=== PATIENT | female | born 1955 | race Caucasian/White ===

== ENCOUNTER 2017-05-09 11:33 | Inpatient (IN) | payer BC, OTHER ==
[~2017-05-09] VITALS: Ht 172.7 cm; Wt 105.8 kg
[~2017-05-09 11:33] MED LIST: ASPI-516 CHEW; BONI150T PO; CALC1TAB12 PO; CELE200C PO; CO Q100C9 PO; COZA100T PO; LEVO88TA2 PO; LIPI40TA PO; MONT10TA2 PO; PRED1 PO; PRED2.5T PO; PRED5TAB PO; TRAM50 PO; VITA400C2 PO; ZANA4CAP PO
[2017-05-09] MEDS ORDERED: IOHEXOL 350 MG/ML 10 ML VIAL (for RAD DIAG) IVCONTRAST ONE (11:34)
[2017-05-09 11:35] VITALS: BP 139/90; PULSE 69; RESP 16; TEMP 98.3; O2SAT 97; O2SAT 99
[2017-05-09] MEDS ORDERED: SODIUM CHLOR 0.9% 1000 ML INJ 1,000 ML IV ONE (11:40)
--- NOTE | 2017-05-09 11:46 | PD ---
HPI Chief Complaint: Stroke Alert Time Seen by Provider: 11:32 Travel History International Travel<30 days: No Contact w/Intl Traveler<30days: No Traveled to known affect area: No History of Present Illness HPI PATIENT ABOUT 1HR [employer]AMENT [employer]ER APPARENTLY DEVELOPED WEAKNESS TO RUE/ DIFFICULTY SPEAKING WHILE AT PCP DR PLUMMER'S OFFICE. ALL:DENIES PMHX: DM, HTN, HYPERCHOL, NEUROPATHY, HYPOTHYROID PFSH Past Medical History Hx Anticoagulant Therapy: Yes Cardiovascular Problems: Yes Cerebrovascular Accident: Yes Hypertension: Yes Neurologic: Yes Past Surgical History Appendectomy: Yes Neurologic Surgery: Yes Social History Alcohol Use: Yes Tobacco Use: No Substance Use: No Allergies-Medications (Allergen,Severity, Reaction): Coded Allergies: No Known Allergies (Unverified Adverse Reaction, Unknown, 05/09/17) Reported Meds & Prescriptions Reported Meds & Active Scripts Active Boniva (Ibandronate Sodium) 150 Mg Tab 150 Mg PO Q28D 90 Days Prednisone 2.5 Mg Tab 2.5 Mg PO BID Prednisone 5 Mg Tab 12 Mg PO DAILY as directed-- or 2 p.o. bid with 1 mg tabs. Prednisone 1 Mg Tab 1 Mg PO BID Lipitor (Atorvastatin Calcium) 40 Mg Tab 40 Mg PO HS Cozaar (Losartan Potassium) 100 Mg Tab 100 Mg PO DAILY Celebrex (Celecoxib) 200 Mg Cap 200 Mg PO BID Levothyroxine (Levothyroxine Sodium) 88 Mcg Tab 88 Mcg PO DAILY Reported Aspirin 81 Mg Chew 81 Mg CHEW DAILY Zanaflex (Tizanidine HCl) 4 Mg Cap 4 Mg PO BID Vitamin E 400 Unit Cap 400 Units PO DAILY Ultram (Tramadol HCl) 50 Mg Tab 50 Mg PO QID PRN Co Q 10 (Coenzyme Q10 (Ubidecarenone)) 100 Mg Cap 200 Mg PO HS Calcium 500 +D (Calcium Carbonate-Cholecalciferol) 500-400 Mg-Unit Tab 1 Tab PO BID Review of Systems General / Constitutional: No: Fever Eyes: No: Visual changes HENT: No: Headaches Cardiovascular: No: Chest Pain or Discomfort Respiratory: No: Shortness of Breath Gastrointestinal: No: Abdominal Pain Genitourinary: No: Dysuria Musculoskeletal: No: Pain Skin: No Rash Neurologic: Positive: Weakness Psychiatric: No: Depression Endocrine: No: Polydipsia Hematologic/Lymphatic: No: Easy Bruising Physical Exam Narrative GENERAL: SKIN: Warm and dry. HEAD: Atraumatic. Normocephalic. EYES: Pupils equal and round. No scleral icterus. No injection or drainage. ENT: No nasal bleeding or discharge. Mucous membranes pink and moist. NECK: Trachea midline. No JVD. CARDIOVASCULAR: Regular rate and rhythm. RESPIRATORY: No accessory muscle use. Clear to auscultation. Breath sounds equal bilaterally. GASTROINTESTINAL: Abdomen soft, non-tender, nondistended. Hepatic and splenic margins not palpable. MUSCULOSKELETAL: Extremities without clubbing, cyanosis, or edema. No obvious deformities. NEUROLOGICAL: Awake and alert. No obvious cranial nerve deficits. Motor grossly within normal limits. Five out of 5 muscle strength in the arms and legs. Normal speech. PSYCHIATRIC: Appropriate mood and affect; insight and judgment normal. Data Data Last Documented VS Vital Signs Date Time Temp Pulse Resp B/P (MAP) Pulse Ox O2 Delivery O2 Flow Rate FiO2 05/09/17 11:35 98.3 69 16 139/90 (106) 97 Orders Orders Diet Npo (05/09/17 Lunch) Activity Bed Rest (05/09/17 ) Electrocardiogram (05/09/17 ) I-Stat Creatinine (05/09/17 11:40) I-Stat Profile (05/09/17 11:40) Prothrombin Time / Inr (Pt) (05/09/17 11:40) Act Partial Throm Time (Ptt) (05/09/17 11:40) Complete Blood Count With Diff (05/09/17 11:40) Fibrinogen (05/09/17 11:40) Creatine Kinase (Cpk) (05/09/17 11:40) Troponin I (05/09/17 11:40) Ua Includes Microscopic (05/09/17 11:40) Drug Screen, Random Urine (05/09/17 11:40) Type And Screen (05/09/17 11:40) Ct Brain W/O Iv Contrast(Rout) (05/09/17 ) Cta Brain W Iv Contrast W 3d (05/09/17 11:40) Cta Neck W Iv Contrast W 3d (05/09/17 11:40) Beta Hcg (Quant/Titer) (05/09/17 11:40) Consult Neurology (05/09/17 ) Blood Glucose (05/09/17 11:40) Ecg Monitoring (05/09/17 11:40) Neuro Checks Q2HX12,Q4H (05/09/17 11:40) Nursing Bedside Swallow Assess .ONCE (05/09/17 11:40) Iv Access Insert/Monitor (05/09/17 11:40) NPO (05/09/17 11:40) Oximetry (05/09/17 11:40) Oxygen Administration (05/09/17 11:40) Sodium Chlor 0.9% 1000 Ml Inj (Ns 1000 M (05/09/17 11:40) Resp Oxygen Husam C Titrat 1-4 L (05/09/17 11:40) Cath For Specimen (05/09/17 11:40) MDM Medical Decision Making Medical Screen Exam Complete: Yes Emergency Medical Condition: Yes Medical Record Reviewed: Yes Differential Diagnosis TIA V CVA V ELECTROLYTE ABNL V THYROID D/O Physician Communication Physician Communication D/W DR ORTIZ WHO AGREES PATIENT IS NOT A LYTIC/TPA CANDIDATE AT THIS TIME DUE TO SIGNIFICANT RESOLUTION OF SYMPTOMS WITHIN HOUR, AND LOW NEUROLOGICAL DEFICITS NOTED Diagnosis Primary Impression: TIA Admitting Information Admitting Physician Requests: Observation Harley Dudley MD May 09, 2017 11:46
[2017-05-09 11:56] LABS: AUTOMATED NEUTROPHIL # 4.6 TH/MM3 (1.8-7.7); BASOPHIL % 0.5 % (0.0-2.0); EOSINOPHIL # 0.1 TH/MM3 (0-0.4); HEMATOCRIT 44.1 % (35.0-46.0); HEMOGLOBIN 14.9 GM/DL (11.6-15.3); LYMPH % 22.3 % (9.0-44.0); LYMPHOCYTE # 1.5 TH/MM3 (1.0-4.8); MEAN CELL VOLUME 95.7 FL (80.0-100.0); MEAN CORPUSCULAR HEMOGLOBIN 32.4 PG (27.0-34.0); MEAN CORPUSCULAR HGB CONC 33.9 % (32.0-36.0); MEAN PLATELET VOLUME 7.3 FL (7.0-11.0); MONO % 6.7 % (0.0-8.0); MONOCYTE # 0.5 TH/MM3 (0-0.9); NEUT % 68.5 % (16.0-70.0); PLATELET COUNT 197 TH/MM3 (150-450); RED BLOOD COUNT 4.61 MIL/MM3 (4.00-5.30); RED CELL DISTRIBUTION WIDTH 12.7 % (11.6-17.2); WHITE BLOOD COUNT 6.7 TH/MM3 (4.0-11.0)
--- NOTE | 2017-05-09 12:10 | RADRPT ---
EXAM DATE/TIME: 05/09/2017 11:33 [facility] COMPARISON: CT BRAIN W/O CONTRAST, April 17, 2015, 15:00. INDICATIONS : Dizziness,right side weakness RADIATION DOSE: 56.35 CTDIvol (mGy) This report was to Dr. Arredondo at 1203. MEDICAL HISTORY : None SURGICAL HISTORY : None. ENCOUNTER: Initial ACUITY: 1 day PAIN SCALE: 0/10 LOCATION: cranial TECHNIQUE: Multiple contiguous axial images were obtained of the head. Using automated exposure control and adj ustment of the mA and/or kV according to patient size, radiation dose was kept as low as reasonably a chievable to obtain optimal diagnostic quality images. DICOM format image data is available electro nically for review and comparison. FINDINGS: There is no parenchymal hemorrhage, mass effect or evidence for acute infarction as yet. Left MCA is mildly hyperdense. CT angiogram is pending. Ventricular size appropriate. There no extra-axial fl uid collections appreciated. Posterior fossa normal. CONCLUSION: Negative for acute process. CT angiogram pending to evaluate left MCA.. Rufino Stapleton MD FACR on May 09, 2017 at 12:04 Board Certified Radiologist. This report was verified electronically.
[2017-05-09 12:11] LABS: INTERNATIONAL NORMALIZED RATIO 1.1 RATIO; PROTHROMBIN TIME - PATIENT 10.7 SEC (9.8-11.6)
[2017-05-09 12:19] LABS: TROPONIN I LESS THAN 0.02 NG/ML (0.02-0.05)
[2017-05-09 12:35] VITALS: BP 145/69; PULSE 75; RESP 20; O2SAT 98
--- NOTE | 2017-05-09 12:42 | RADRPT ---
EXAM DATE/TIME: 05/09/2017 12:08 [facility] COMPARISON: CT BRAIN W/O CONTRAST, May 09, 2017, 11:33. INDICATIONS : Dizziness,Right side weakness IV CONTRAST: 76 cc Omnipaque 350 (iohexol) IV ; Cumulative dose for multiple exams. RADIATION DOSE: 9.61 CTDIvol (mGy) ; Combined studies MEDICAL HISTORY : None SURGICAL HISTORY : None. ENCOUNTER: Initial ACUITY: 1 day PAIN SCALE: 0/10 LOCATION: CTA Head TECHNIQUE: Volumetric scanning was performed using a multi-row detector CT scanner. The data was post processed with a variety of visualization algorithms including full volume maximum intensity projection, multi -planar sliding thin slab reformation, curved planar reformation, and surface rendering techniques. Using automated exposure control and adjustment of the mA and/or kV according to patient size, radiat ion dose was kept as low as reasonably achievable to obtain optimal diagnostic quality images. DICO M format image data is available electronically for review and comparison. FINDINGS: There is excellent visualization of the major intracranial arteries out to the second-order branch ve ssels. There is no evidence for aneurysm, vessel truncation or stenosis, and no evidence for vascula r malformation. Incidental note is made of a sub-occipital craniectomy. CONCLUSION: Intracranial vessels are all patent without embolic disease to explain current clinical symptoms . Akin Pang MD on May 09, 2017 at 12:36 Board Certified Radiologist. This report was verified electronically.
[2017-05-09 13:24] VITALS: BP 175/75; PULSE 73; RESP 20; O2SAT 98
--- NOTE | 2017-05-09 13:28 | RADRPT ---
EXAM DATE/TIME: 05/09/2017 12:08 [facility] COMPARISON: No previous studies available for comparison. INDICATIONS : Dizziness, right side weakness. IV CONTRAST: 76 cc Omnipaque 350 (iohexol) IV ; Cumulative dose for multiple exams. RADIATION DOSE: 9.61 CTDIvol (mGy) ; Combined studies MEDICAL HISTORY : None SURGICAL HISTORY : None. ENCOUNTER: Initial ACUITY: 1 day PAIN SCALE: 0/10 LOCATION: neck Elevated flow velocities and ICA/CCA ratios have been found to correlate with increased degrees of vessel stenosis, calculated as percentage of diameter relative to a normal segment of distal ICA/CCA. TECHNIQUE: Volumetric scanning was performed using a multirow detector CT scanner. The data was post processed with a variety of visualization algorithms including full-volume maximum intensity projection, multip lanar sliding thin-slab reformation, curved-planar reformation, and surface-rendering techniques. Us ing automated exposure control and adjustment of the mA and/or kV according to patient size, radiatio n dose was kept as low as reasonably achievable to obtain optimal diagnostic quality images. DICOM f ormat image data is available electronically for review and comparison. FINDINGS: AORTIC ARCH: There is a three-vessel origin of the great vessels from the aorta. No evidence of ostial narrowing. RIGHT CAROTID: The common carotid artery is intact. Mild atherosclerotic changes proximally . The internal carotid a rtery lumen is smooth without stenosis. The external carotid artery is intact. LEFT CAROTID: The common carotid artery is intact. Mild atherosclerotic changes proximally. The internal carotid artery lumen is smooth without stenosis. The external carotid artery is intact. VERTEBRALS: The vertebral arteries have a symmetric diameter. No stenotic lesions are seen. CONCLUSION: Normal-appearing carotid arteries. No significant stenosis. Mike Johansen MD on May 09, 2017 at 13:25 Board Certified Radiologist. This report was verified electronically.
[2017-05-09 13:31] VITALS: BP 156/86; PULSE 78; RESP 16; O2SAT 100
[2017-05-09] MEDS ORDERED: VITA-142 PO (13:41)
--- NOTE | 2017-05-09 13:48 | HHI.HP ---
[facility] Service Family Medicine Primary Care Physician Jasmin Leiva MD Admission Diagnosis TIA Diagnoses: International Travel<30 Days: No Contact w/Intl Traveler<30days: No Known Affected Area: No History of Present Illness 61 y/o F, past medical history of syringomyelia with multiple surgeries, diabetes, hypertension, and hyperlipidemia presents as a stroke alert with mostly resolved symptoms. She was on a diet over the holidays and lost 13 lbs and she believes this has caused her blood pressure to decrease. She had a couple episodes of dizziness Sunday/Sunday of last week and checked her blood pressure and it was 89/69, and her normal is 130/90. Last week she felt the dizziness in the morning while she was getting dressed. She layed down for 30 minutes and felt fine after. After this happened she noticed that if she does a lot of activity she will start to get dizzy. She cut her BP medication down in half last Sunday (per request of via phone). After her doctor's appointment today she went to the post-office and felt dizzy; she felt the room was spinning, heavy legs, pre-syncopal.. Denies any N/V. At 10:45AM she had gotten to her office and was having some trouble getting words out. She was sick with a URI during the holidays from 04/24-04/29 but otherwise negative ROS. (Vivienne Harris MD R2) Review of Systems Endocrine: DENIES: Polyuria Eyes: DENIES: Blurred vision, Diplopia Ears, nose, mouth, throat: DENIES: Throat pain, Hoarseness Respiratory: DENIES: Wheezing, Hemoptysis Cardiovascular: DENIES: Chest pain, Palpitations Gastrointestinal: DENIES: Bloody stools, Diarrhea Genitourinary: DENIES: Urinary frequency, Urinary incontinence Musculoskeletal: DENIES: Muscle aches, Stiffness Integumentary: DENIES: Rash, Nail changes Hematologic/lymphatic: DENIES: Lymphadenopathy Immunologic/allergic: DENIES: Urticaria Neurologic: DENIES: Seizures, Speech Problems Psychiatric: DENIES: Depression, Hallucinations (Vivienne Harris MD R2) Past Family Social History Past Medical History PMH preDM (on steroids) 01/12 osteopenia 2013 (Pt s/p fosamax weekly estim 2003- 2008), now on bisphosphanate holiday Chronic myofascial and neuropathic pain with neuropathy Chiari malformation with hydromyelia Hyperlipidemia Hypertension Seasonal allergies menopause 2006 Hypothyroid 1989 desensitization shots 1980s INJURIES Right wrist fracture 2008 Left clavicle fracture age 4 Right leg fracture age 12 Head injury with concussion 2000 SURG Lap Appy 03/14, benign pathology Right wrist 2007 Suboccipital craniectomy, laminectomy C1-C4, myelotomy C4, with insertion of Silastic T-tube for drainage of syrinx into subarachnoid space September 1989 SH ,no natural children, spouse diagnosed with Hep B/ liver transplant has stepdaughter that she helped raise from age 9, and 2 grandchildren. 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 ALLERGIES No known drug allergies patient is allergic to Ione, dust mites, mildew. HEALTH MAINTENANCE BMD 06/08/16: progression of osteopenia in the lumbar spine from 2013, likely related to prednisone therapy.resume Bisphosphanate CPE Jan 2016 labs Jan 2016: TotC 177, H 70, TG 75, L 92. FBS 124, A1C 6.1, AST 36, Vit D 64 , FT4 1.3, (low TSH). Labs 04/18/15: Hepatitis panel and LFTs normal. CT abdomen and pelvis 02/11: c/w mild sig diverticulosis, small nonobstructing left renal calculus, small hiatal hernia labs 01/12 A1C 6.0 TotChol 151, H 59, L 77, TG 75 FBS 90, ALT 30 (sl elevated) TSH low (0.2), FT4 1.2, FT3 3.2. ok to cont current levoth dose (euthyroid clinically) colonoscopy 01/12 Bx:hemorrhagic changes at colon at appendix region, otherwise benign path and polyps. ophth 02/10 labs 01/11: A1C 5.9, TSH low but FT4 1.4, CMP wnl. labs 01/12 pending BMD 09/10:osteopenia R prox hip (-1.6), L spine (-1.2), repeat 1-2yrs (pt on prednisone) mamm 09/10, ordered, pending 01/12 pap 06/13 wnl (atrophic), neg HR HPV, repap 2019 Labs April 2013: Decreased TSH, normal T3-T4, fasting glucose 104, cholesterol 174, triglyceride 80, HDL 70, LDL 80, neg [place] and CRP, RF sl elevated at 16.4. Brain MRI 08/25/11 mamm 2011 bone density 2006 (estim) colonoscopy 2008 Immunizations hep B series 2007 hep A series 2007 flu shot q fall other providers: neuro ([facility]) [id number], GI ([facility]), ophth ( [facility] Jan 2014), [facility] [place] 2015 (Vivienne Harris MD R2) Allergies: Coded Allergies: No Known Allergies (Unverified Adverse Reaction, Unknown, 05/09/17) Physical Exam Vital Signs Vital Signs Date Time Temp Pulse Resp B/P (MAP) Pulse Ox O2 Delivery O2 Flow Rate FiO2 05/09/17 13:31 78 16 156/86 (109) 100 Nasal Cannula 2.00 05/09/17 13:24 73 20 175/75 (108) 98 05/09/17 12:35 75 20 145/69 (94) 98 05/09/17 11:35 98.3 69 16 139/90 (106) 97 05/09/17 11:35 99 Nasal Cannula 2.00 05/09/17 11:35 99 Physical Exam GENERAL: This is a well-nourished, well-developed patient, in no apparent distress. SKIN: No rashes, ecchymoses or lesions. Cool and dry. HEAD: Atraumatic. Normocephalic. No temporal or scalp tenderness. EYES: Pupils equal round and reactive. Extraocular motions intact. No scleral icterus. No injection or drainage. ENT: Nose without bleeding, purulent drainage or septal hematoma. Throat without erythema, tonsillar hypertrophy or exudate. Uvula midline. Airway patent. NECK: Trachea midline. No JVD or lymphadenopathy. Supple, nontender, no meningeal signs. CARDIOVASCULAR: Regular rate and rhythm without murmurs, gallops, or rubs. RESPIRATORY: Clear to auscultation. Breath sounds equal bilaterally. No wheezes , rales, or rhonchi. GASTROINTESTINAL: Abdomen soft, non-tender, nondistended. No hepato-splenomegaly , or palpable masses. No guarding. MUSCULOSKELETAL: Extremities without clubbing, cyanosis, or edema. No joint tenderness, effusion, or edema noted. No calf tenderness. Negative Homans sign bilaterally. NEUROLOGICAL: Awake and alert. Cranial nerves II through XII intact. Motor and sensory grossly within normal limits. Slightly weaker in her right upper extremity compared to her baseline considering her condition. Good resistance with dorsiflexion. Symmetrical resistance with lower extremities. Positive Babinski. No sensory loss noted. Normal speech. Pupils equal and reactive. Laboratory Laboratory Tests Test 05/09/17 11:40 White Blood Count 6.7 Red Blood Count 4.61 Hemoglobin 14.9 Bedside Hemoglobin 14.6 Hematocrit 44.1 Bedside Hematocrit 43.0 Mean Corpuscular Volume 95.7 Mean Corpuscular Hemoglobin 32.4 Mean Corpuscular Hemoglobin Concent 33.9 Red Cell Distribution Width 12.7 Platelet Count 197 Mean Platelet Volume 7.3 Neutrophils (%) (Auto) 68.5 Lymphocytes (%) (Auto) 22.3 Monocytes (%) (Auto) 6.7 Eosinophils (%) (Auto) 2.0 Basophils (%) (Auto) 0.5 Neutrophils # (Auto) 4.6 Lymphocytes # (Auto) 1.5 Monocytes # (Auto) 0.5 Eosinophils # (Auto) 0.1 Basophils # (Auto) 0.0 CBC Comment DIFF FINAL Differential Comment Prothrombin Time 10.7 Prothromb Time International Ratio 1.1 Activated Partial Thromboplast Time 21.2 Fibrinogen 273 Bedside Sodium 140 Bedside Potassium 3.8 Bedside Chloride 108 Bedside Blood Urea Nitrogen 25 Bedside Creatinine 0.7 Bedside Glucose 96 Total Creatine Kinase 147 Troponin I LESS THAN 0.02 Human Chorionic Gonadotropin, Quant 1 (Vivienne Harris MD R2) Result Diagram: 05/09/17 1140 Septic Shock Reassessment Septic shock perfusion: reassessment completed (Vivienne Harris MD R2) Caprini VTE Risk Assessment Caprini VTE Risk Assessment: No/Low Risk (score <= 1) Caprini Risk Assessment Model Point Value = 1 Point Value = 2 Point Value = 3 Point Value = 5 Age 41-60 Minor surgery BMI > 25 kg/m2 Swollen legs Varicose veins or History of unexplained or recurrent spontaneous Oral contraceptives or hormone replacement Sepsis (< 1 month) Serious lung disease, including pneumonia (< 1 month) Abnormal pulmonary function Acute myocardial infarction Congestive heart failure (< 1 month) History of inflammatory bowel disease Medical patient at bed rest Age 61-74 Arthroscopic surgery Major open surgery (> 45 min) Laparoscopic surgery (> 45 min) Malignancy Confined to bed (> 72 hours) Immobilizing plaster cast Central venous access Age >= 75 History of VTE Family history of VTE Factor V Leiden Prothrombin [id number] Lupus anticoagulant Anticardiolipin antibodies Elevated serum homocysteine Heparin-induced thrombocytopenia Other congenital or acquired thrombophilia Stroke (< 1 month) Elective arthroplasty Hip, pelvis, or leg fracture Acute spinal cord injury (< 1 month) Prophylaxis Regimen Total Risk Factor Score Risk Level Prophylaxis Regimen 0-1 Low Early ambulation 2 Moderate Order ONE of the following: *Sequential Compression Device (SCD) *Heparin 5000 units SQ BID 3-4 Higher Order ONE of the following medications: *Heparin 5000 units SQ TID *Enoxaparin/Lovenox 40 mg SQ daily (WT < 150 kg, CrCl > 30 mL/min) *Enoxaparin/Lovenox 30 mg SQ daily (WT < 150 kg, CrCl > 10-29 mL/min) *Enoxaparin/Lovenox 30 mg SQ BID (WT < 150 kg, CrCl > 30 mL/min) AND/OR *Sequential Compression Device (SCD) 5 or more Highest Order ONE of the following medications: *Heparin 5000 units SQ TID (Preferred with Epidurals) *Enoxaparin/Lovenox 40 mg SQ daily (WT < 150 kg, CrCl > 30 mL/min) *Enoxaparin/Lovenox 30 mg SQ daily (WT < 150 kg, CrCl > 10-29 mL/min) *Enoxaparin/Lovenox 30 mg SQ BID (WT < 150 kg, CrCl > 30 mL/min) AND *Sequential Compression Device (SCD) (Vivienne Harris MD R2) Assessment and Plan Assessment and Plan 61 y/o F, past medical history of syringomyelia with multiple surgeries, diabetes, hypertension, and hyperlipidemia presents as a stroke alert with mostly resolved symptoms. Discussed Condition With Dr. Dodd (Vivienne Harris MD R2) Attending Attestation THIS CASE WAS DISCUSSED WITH THE RESIDENT PHYSICIANS. I HAVE REVIEWED THE RECORD AND AGREE WITH THE ABOVE NOTE AND PLAN OF CARE WAS DISCUSSED. I HAVE AUTHORIZED THE ORDER FOR ADMISSION TO AN IN-PATIENT STATUS. (Jasmin Leiva MD) Problem List: (1) Episode of dizziness ICD Codes: R42 - Dizziness and giddiness Status: Acute Plan: Episode of dizziness, presyncopal symptoms, speech difficulties, and some residual right hemiparesis Risk factors: HTN, DM Lay flat [address] brain and CTA unremarkable, CT negative for bleeding Follow-up neurology consult recommendations - Continue aspirin - Add Plavix - Follow up MRI of brain without contrast - Follow up lipids, A1C, LFTs - Follow up echo Bedrest Fall precautions NIH stroke scale Neuro checks every 4 Bedside swallow study then full diet Stroke education Normal saline at 70 ml/hr Initial troponin negative, follow-up troponin trend EKG: WNL f/u with PT, OT, speech, CM (2) Chronic myofascial pain ICD Codes: M79.1 - Myalgia; G89.29 - Other chronic pain Status: Chronic Plan: Hold antispasmodics Hold Celebrex Continue tramadol Continue home prednisone (3) Hypertension ICD Codes: I10 - Hypertension Status: Acute Plan: Slightly hypertensive on admission Continue losartan 50 mg daily (4) Hypothyroid ICD Codes: E03.9 - Hypothyroidism, unspecified Status: Acute Plan: Per chart review TSH was low last year and medication had to be titrated Continue home dose of levothyroxine 88 g Follow up TSH (5) Diabetes ICD Codes: E11.9 - Type 2 diabetes mellitus without complications Status: Chronic Plan: Prediabetes, also on chronic steroids Bedside glucose on admission 94 Follow up hemoglobin A1c Follow-up BS Insulin sliding scale (6) fen/ppx Status: Chronic Plan: Fluids: Normal saline as mentioned above, full diet after swallow study Electrolytes: Initial BMP normal, follow-up BMP tomorrow Nutrition: Regular diet after swallow study (Vivienne Harris MD R2) Physician Certification 2 Midnight Certification Type: Admission for Inpatient Services Order for Inpatient Services The services are ordered in accordance with Medicare regulations or non- Medicare payer requirements, as applicable. In the case of services not specified as inpatient-only, they are appropriately provided as inpatient services in accordance with the 2-midnight benchmark. Estimated LOS (days): 2 days is the estimated time the patient will need to remain in the hospital, assuming treatment plan goals are met and no additional complications. Post-Hospital Plan: Home (Vivienne Hraris MD R2) 2 Midnight Certification Type: Admission for Inpatient Services Post-Hospital Plan: Home (Jasmin Leiva MD) Vivienne Harris MD R2 May 09, 2017 13:48 Jasmin Leiva MD May 10, 2017 08:52
[2017-05-09] MEDS ORDERED: BISACODYL 10 MG SUPP RECTAL PRN (14:00)
[2017-05-09] MEDS ORDERED: SODIUM CHLORIDE 0.9% FLUSH 10 ML FLUSH IV FLUSH PRN (14:00)
[2017-05-09] MEDS ORDERED: MAGNESIUM HYDROXIDE SUSP 30 ML CUP PO PRN (14:00)
[2017-05-09] MEDS: SODIUM CHLORIDE 0.9% FLUSH 10 ML FLUSH IV FLUSH SCH ×2 (14:00→21:00)
[2017-05-09] MEDS ORDERED: NALOXONE HCL 0.4 MG/ML AMP IV PUSH PRN ×2 (14:00→20:30)
[2017-05-09] MEDS ORDERED: LACTULOSE SYRUP 20 GM/30 ML CUP PO PRN (14:00)
[2017-05-09] MEDS ORDERED: SENNOSIDES 8.6 MG TAB PO PRN (14:00)
[2017-05-09] MEDS ORDERED: NON-FORMULARY DRUG (Calcium Carbonate-Cholecalciferol (Calcium 500 +D) 1 TAB) PO SCH (14:30)
--- NOTE | 2017-05-09 14:30 | MB ---
cc: JASMIN ORTIZ M.D. DATE OF CONSULTATION 05/09/2017 HISTORY OF PRESENT ILLNESS The patient is seen in neurological consultation. She was in the emergency room. This was a Stroke Alert. I spoke to the ED physician on a couple of occasions. The patient has a history of diabetes, hypertension, and hyperlipidemia. She takes a baby aspirin daily. She also has a history of syringomyelia and laminectomy at the high cervical levels with apparent suboccipital craniectomy as well. Today she was in a doctor's office when she was noted to have some slurring of speech and some right-sided weakness. She improved quickly and within an hour or so her symptoms were mostly resolved. She has no history of stroke, TIA, or seizures. NEUROLOGICAL EXAMINATION On exam she is alert, pleasant and oriented. Her speech is normal. No language dysfunction is noted. No facial weakness. Tongue and palate moves well. Ocular movements and visual foster full. Pupils equal and reactive. She did raise the arms and legs on the bedside exam. She has some weakness in the intrinsic hand muscles, especially the left from the syringomyelia syndrome and there is some contracture that seems to involve the fourth finger predominantly. She is possibly very mildly weak as a residual on the right distal upper extremity in comparison to the baseline. The patient herself does not seem to be quite aware of these. She resisted well with the distal lower extremities on dorsiflexion. She raised the lower extremities and opposed reasonable resistance, symmetrical. Reflexes were 2+, present at both ankles. Plantar responses were probably flexor bilaterally. Position sense preserved in the distal lower extremities. No distinct sensory loss and she is not having any sensory symptoms. ASSESSMENT 1. Stroke Alert with mostly if not completely resolved symptoms. The patient describes some dizziness, lightheadedness and felt like she was going to pass out. She appears to have had some right hemiparesis and speech difficulty. There is now questionable residual right hand weakness. 2. History of syringomyelia treated with cervical/occipital surgeries many years ago. 3. Diabetes. 4. Hypertension. 5. Hyperlipidemia. PLAN/RECOMMENDATIONS She is to continue the aspirin. We will add Plavix. Further evaluation to include MRI brain. The patient had a CT angio head that was unremarkable as well as CT brain. The CT angio neck results were pending a few minutes ago when I opened her chart. Will follow this. Will check lipids and echocardiogram. SCDs. I will follow the neurological course. Thank you for asking us to assist in her care. MD BALDEMAR Mcduffie/BT /1:52 PM /2:11 PM
[2017-05-09 14:41] LABS: CHOLESTEROL/ HDL RATIO 2.57 RATIO; HDL CHOLESTEROL 52.9 MG/DL (40.0-60.0)
[2017-05-09] MEDS ORDERED: ASPIRIN 325 MG TAB PO ONE (15:00)
[2017-05-09] MEDS ORDERED: SODIUM CHLOR 0.9% 1000 ML INJ 1,000 ML IV SCH (15:00)
[2017-05-09] MEDS ORDERED: DEXTROSE 50% IN WATER 50 ML VIAL(D50) IV PUSH PRN (15:00)
[2017-05-09] MEDS ORDERED: CLOPIDOGREL 75 MG TAB PO ONE (15:00)
[2017-05-09] MEDS: ENOXAPARIN SODIUM 40 MG/0.4 ML SYRINGE SQ SCH (15:00)
[2017-05-09] MEDS ORDERED: GLUCAGON 1 MG/ML VIAL OTHER PRN (15:00)
[2017-05-09] MEDS: ASPIRIN 325 MG TAB PO SCH (15:30)
--- NOTE | 2017-05-09 15:41 | RADRPT ---
EXAM DATE/TIME: 05/09/2017 15:28 [facility] COMPARISON: No previous studies available for comparison. INDICATIONS : Confusion. Stroke alert. MEDICAL HISTORY : Hypertension. Hypercholesterolemia. Cerebrovascular accident. SURGICAL HISTORY : Appendectomy. ENCOUNTER: Initial ACUITY: 1 day PAIN SCORE: 0/10 LOCATION: Bilateral chest FINDINGS: The lungs are clear. The heart is minimally enlarged. The pulmonary vascularity is normal. There is n o evidence for infiltrate or failure. The portion of the bony skeleton visualized is unremarkable. CONCLUSION: Compensated cardiomegaly otherwise negative Rufino Stapleton MD FACR on May 09, 2017 at 15:38 Board Certified Radiologist. This report was verified electronically.
[2017-05-09] MEDS ORDERED: predniSONE 10 MG TAB PO SCH (16:45)
[2017-05-09] MEDS: INSULIN ASPART SUPPLEMENTAL SCALE SQ SCH ×2 (17:00→20:04)
[2017-05-09] MEDS ORDERED: LOSARTAN 50 MG TAB PO SCH (17:00)
[2017-05-09] MEDS: VITAMIN E 400 UNIT CAP PO SCH (18:05)
[2017-05-09] MEDS: SODIUM CHLOR 0.9% 1000 ML INJ 1,000 ML IV SCH (18:05)
[2017-05-09] MEDS: traMADol HCL 50 MG TAB PO PRN (18:44)
[2017-05-09] MEDS ORDERED: ACETAMINOPHEN 325 MG TAB PO PRN (20:30)
[2017-05-09] MEDS ORDERED: ACETAMINOPHEN/HYDROcodone 325 MG/7.5 MG TAB PO PRN (20:30)
[2017-05-09] MEDS ORDERED: NON-FORMULARY DRUG (Coenzyme Q10 (Ubidecarenone) (Co Q 10) 200 MG) PO SCH (21:00)
--- NOTE | 2017-05-09 21:08 | RADRPT ---
EXAM DATE/TIME: 05/09/2017 20:30 [facility] COMPARISON: No previous studies available for comparison. INDICATIONS : CVA. MEDICAL HISTORY : Hypertension. Hypercholesterolemia. TIA SURGICAL HISTORY : Appendectomy. Craniotomy. Neurosurgery, Cervical sx. ENCOUNTER: Initial ACUITY: 1 day PAIN SCORE: 3/10 LOCATION: Right arm weakness. TECHNIQUE: Multiplanar, multisequence MRI of the brain was performed without contrast. FINDINGS: CEREBRUM: The ventricles are normal for age. No evidence of midline shift, or hemorrhage. No extraaxial fluid collections are seen. The pituitary gland and suprasellar cistern are normal in configuration. WHITE MATTER: No significant signal abnormalities are seen in the white matter. The cervical cord is quite narrowed in AP dimension POSTERIOR FOSSA: The cerebellum and brainstem are intact. The 4th ventricle is midline. The cerebellopontine angle is unremarkable. The cerebellar tonsils are normal in position. DIFFUSION IMAGING: There is a large abnormal area seen on the diffusion-weighted sequences of the left occipital lobe co ncerning for stroke. There is a questionable 4 mm area in the left inferior cerebellum could be an ad ditional small stroke. Small stroke in the right cerebellar vermis EXTRACRANIAL: The visualized portions of the orbits and paranasal sinuses are unremarkable. CONCLUSION: Large stroke in the left occipital lobe medially. 2 small strokes within the cerebellum, one in the s uperior right vermis. No evidence of malignancy. No mass or mass effect. Timmy Gongora MD on May 09, 2017 at 21:01 Board Certified Radiologist. This report was verified electronically.
[2017-05-09 21:38] VITALS: BP 114/57; PULSE 75; RESP 18; TEMP 98.2; O2SAT 95
[2017-05-09] MEDS: predniSONE 1 MG TAB PO SCH (21:59)
[2017-05-09] MEDS: ATORVASTATIN 40 MG TAB PO SCH (21:59)
[2017-05-09] MEDS: predniSONE 5 MG TAB PO SCH (22:00)
[2017-05-09] MEDS: ACETAMINOPHEN/HYDROcodone 325 MG/5 MG TAB PO PRN (22:01)
[2017-05-10] VITALS (7 sets, daily range): BP systolic 118–166; BP diastolic 55–97; PULSE 61–92; RESP 16–18; TEMP 98–98.4; O2SAT 94–98
[2017-05-10] MEDS: SODIUM CHLOR 0.9% 1000 ML INJ 1,000 ML IV SCH ×2 (04:45→18:16)
[2017-05-10] MEDS: traMADol HCL 50 MG TAB PO PRN ×2 (04:45→16:41)
[2017-05-10] MEDS ORDERED: LEVOTHYROXINE SODIUM 88 MCG TAB PO SCH (06:00)
[2017-05-10] MEDS ORDERED: ENALAPRILAT 1.25 MG/ML VIAL IV PUSH PRN (07:15)
[2017-05-10 07:57] LABS: AUTOMATED NEUTROPHIL # 4.6 TH/MM3 (1.8-7.7); BASOPHIL % 0.4 % (0.0-2.0); EOSINOPHIL # 0.1 TH/MM3 (0-0.4); HEMATOCRIT 43.5 % (35.0-46.0); HEMOGLOBIN 15.2 GM/DL (11.6-15.3); LYMPH % 16.6 % (9.0-44.0); MEAN CELL VOLUME 94.3 FL (80.0-100.0); MEAN CORPUSCULAR HEMOGLOBIN 32.9 PG (27.0-34.0); MEAN CORPUSCULAR HGB CONC 34.9 % (32.0-36.0); MEAN PLATELET VOLUME 7.9 FL (7.0-11.0); MONO % 6.8 % (0.0-8.0); MONOCYTE # 0.4 TH/MM3 (0-0.9); NEUT % 75.2 % (16.0-70.0); PLATELET COUNT 233 TH/MM3 (150-450); RED BLOOD COUNT 4.62 MIL/MM3 (4.00-5.30); RED CELL DISTRIBUTION WIDTH 12.6 % (11.6-17.2); WHITE BLOOD COUNT 6.1 TH/MM3 (4.0-11.0)
[2017-05-10] MEDS: INSULIN ASPART SUPPLEMENTAL SCALE SQ SCH ×4 (08:00→20:32)
[2017-05-10 08:17] LABS: ALBUMIN 3.2 GM/DL (3.4-5.0); ALT (GPT) 48 U/L (10-53); AST (GOT) 23 U/L (15-37); BICARBONATE 25.2 MEQ/L (21.0-32.0); BLOOD UREA NITROGEN 13 MG/DL (7-18); CALCIUM 8.1 MG/DL (8.5-10.1); CHLORIDE 115 MEQ/L (98-107); CHOLESTEROL 135 MG/DL (120-200); CREATININE 0.53 MG/DL (0.50-1.00); DIRECT BILIRUBIN ADULT 0.1 MG/DL (0.0-0.2); GLOMERULAR FILTRATION RATE 118 ML/MIN (>89); GLUCOSE,RANDOM 98 MG/DL (74-106); SODIUM (NA) 147 MEQ/L (136-145)
[2017-05-10 08:27] LABS: ALKALINE PHOSPHATASE 51 U/L (45-117); CHOLESTEROL/ HDL RATIO 2.76 RATIO; HDL CHOLESTEROL 48.9 MG/DL (40.0-60.0); INDIRECT BILIRUBIN 0.2 MG/DL (0.0-0.8); LDL CHOLESTEROL 76 MG/DL (0-99); TOTAL BILIRUBIN ADULT 0.3 MG/DL (0.2-1.0); TRIGLYCERIDES 51 MG/DL (42-150); TROPONIN I LESS THAN 0.02 NG/ML (0.02-0.05)
[2017-05-10] MEDS: predniSONE 1 MG TAB PO SCH ×2 (09:00→12:03)
[2017-05-10] MEDS: predniSONE 5 MG TAB PO SCH ×2 (09:00→12:03)
[2017-05-10] MEDS: ASPIRIN 325 MG TAB PO SCH (10:19)
[2017-05-10] MEDS: VITAMIN E 400 UNIT CAP PO SCH (10:19)
[2017-05-10] MEDS: SODIUM CHLORIDE 0.9% FLUSH 10 ML FLUSH IV FLUSH SCH ×2 (10:19→21:00)
--- NOTE | 2017-05-10 11:43 | HHI.FPPN ---
Subjective Remarks Patient seen and examined bedside this morning. Patient continues to complain of mild to moderate weakness of her right arm. Patient continues to endorse periods of "kaleidoscope" vision out of her right eye when she looks to the right. She experienced this a couple times overnight, and the last time was at 7 :30 AM this morning. He does not get any headaches or confusion during the times of these vision changes. Patient denies any chest pain/shortness of breath. Patient denies any progressive weakness or new symptoms. Patient denies any nausea/vomiting. (Vivienne Harris MD R2) Objective Vitals Vital Signs Date Time Temp Pulse Resp B/P (MAP) Pulse Ox O2 Delivery O2 Flow Rate FiO2 05/10/17 05:45 61 05/10/17 04:40 98.2 82 18 166/72 (103) 94 05/10/17 00:20 98.3 84 18 119/71 (87) 94 05/09/17 21:38 98.2 75 18 114/57 (76) 95 05/09/17 18:57 05/09/17 13:31 78 16 156/86 (109) 100 Nasal Cannula 2.00 05/09/17 13:24 73 20 175/75 (108) 98 05/09/17 12:35 75 20 145/69 (94) 98 05/09/17 11:35 98.3 69 16 139/90 (106) 97 05/09/17 11:35 99 Nasal Cannula 2.00 05/09/17 11:35 99 I/O 05/09/17 05/09/17 05/09/17 05/10/17 05/10/17 05/10/17 07:00 15:00 23:00 07:00 15:00 23:00 Intake Total 140 ml Output Total 600 ml 600 ml Balance -600 ml -460 ml Intake IV Total 140 ml Output Urine Total 600 ml 600 ml # Voids 1 1 6 (Vivienne Harris MD R2) Result Diagram: 05/10/17 0635 05/10/17 0635 Objective Remarks GENERAL: Awake alert and oriented 3, in no acute distress SKIN: Warm and dry. HEAD: Normocephalic. EYES: No scleral icterus. No injection or drainage. NECK: Supple, trachea midline. No JVD or lymphadenopathy. CARDIOVASCULAR: Regular rate and rhythm without murmurs, gallops, or rubs. RESPIRATORY: Breath sounds equal bilaterally. No accessory muscle use. GASTROINTESTINAL: Abdomen soft, non-tender, nondistended. MUSCULOSKELETAL: No cyanosis, or edema. BACK: Nontender without obvious deformity. No CVA tenderness. Neuro: Cranial nerves all grossly intact. Extraocular movements intact. Patient denies any sensory deficits. Right arm 4+ out of 5 strength, left arm 5 out of 5 strength, (as compared to patient's baseline, due to her condition), positive Babinski (Vivienne Harris MD R2) A/P Assessment and Plan 61 y/o F, past medical history of syringomyelia with multiple surgeries, diabetes, hypertension, and hyperlipidemia presents as a stroke alert with mostly resolved symptoms. (Vivienne Harris MD R2) Attending Attestation Patient seen and examined. Case reviewed and discussed with the resident team. Agree with plan of care as discussed with me and documented in the resident note. (Jasmin Leiva MD) Problem List: (1) Episode of dizziness ICD Codes: R42 - Dizziness and giddiness Status: Acute Plan: Episode of dizziness, presyncopal symptoms, speech difficulties, and some residual right hemiparesis Risk factors: HTN, DM Lay flat [address] brain and CTA unremarkable, CT negative for bleeding Follow-up further neurology consult recommendations - Continue aspirin - Continue Plavix - MRI of brain without contrast: Large stroke in left occipital region, small strokes and cerebellum - LDL low at 76 - f/u HbA1c - TSH low at 0.027 - Follow up echo Bedrest Fall precautions NIH stroke scale Neuro checks every 4 Bedside swallow study then full diet Stroke education Normal saline at 70 ml/hr Troponins negative x 3 EKG x 2: T-wave inversion 2 leads, non-contiguous: aVR and V1 , no ST elevations f/u with PT, OT, speech, CM (2) Chronic myofascial pain ICD Codes: M79.1 - Myalgia; G89.29 - Other chronic pain Status: Chronic Plan: Hold antispasmodics Hold Celebrex Continue tramadol Continue home prednisone (3) Hypertension ICD Codes: I10 - Hypertension Status: Acute Plan: Slightly hypertensive on admission hold home losartan 50 mg daily to allow for permissive hypertension When necessary medication on board for blood pressures 200/100 (4) Hypothyroid ICD Codes: E03.9 - Hypothyroidism, unspecified Status: Chronic Plan: Per chart review TSH was low last year and medication had to be titrated TSH today 0.027 Increase levothyroxine to 100 g f/u TSH in 3 months as outpatient (5) Diabetes ICD Codes: E11.9 - Type 2 diabetes mellitus without complications Status: Chronic Plan: Prediabetes, also on chronic steroids Bedside glucose on admission 94 Follow up hemoglobin A1c Follow-up BS Insulin sliding scale (6) fen/ppx Status: Chronic Plan: Fluids: Normal saline as mentioned above, full diet after swallow study Electrolytes: Initial BMP normal, follow-up BMP tomorrow Nutrition: Regular diet after swallow study (Vivienne Harris MD R2) Vivienne Harris MD R2 May 10, 2017 11:43 Jasmin Leiva MD May 15, 2017 11:06
[2017-05-10] MEDS ORDERED: predniSONE 5 MG TAB PO SCH (14:30)
[2017-05-10] MEDS: ENOXAPARIN SODIUM 40 MG/0.4 ML SYRINGE SQ SCH (16:37)
--- NOTE | 2017-05-10 18:10 | HHI.PR ---
Review/Management Daily Summary doing well and anxious, worried about inactivity etc probably has some right field defect to correlate with mri findings, though on confrontation field is at least partially preserved will add some xanax prn anxiety add plavix to asa, goal is ldl below 60 check echo, ekg is sinus if any evidence of cardio embolism, switch to anticoagulation mri seen discussed with family and pt brown candidate, hope so one of my partners will cover as i will be out of town Subjective Subjective Comments No acute events reported No headache Active Medications Current Medications Medications (Trade) Dose Ordered Sig/Rob Route Start Time Stop Time Status Last Admin (NS Flush) 2 ml UNSCH PRN IV FLUSH 05/09/17 14:00 (NS Flush) 2 ml BID IV FLUSH 05/09/17 14:00 05/10/17 10:19 (Narcan Inj) 0.4 mg UNSCH PRN IV PUSH 05/09/17 14:00 (Milk Of Magnesia Liq) 30 ml Q12H PRN PO 05/09/17 14:00 (Senokot) 17.2 mg Q12H PRN PO 05/09/17 14:00 (Dulcolax Supp) 10 mg DAILY PRN RECTAL 05/09/17 14:00 (Lactulose Liq) 30 ml DAILY PRN PO 05/09/17 14:00 (Lipitor) 40 mg HS PO 05/09/17 21:00 05/09/17 21:59 (Deltasone) 2 mg DAILY PO 05/09/17 14:30 05/10/17 12:03 (Ultram) 50 mg QID PRN PO 05/09/17 14:30 05/10/17 16:41 (Vitamin E) 400 units DAILY PO 05/09/17 14:30 05/10/17 10:19 (Aspirin) 325 mg DAILY PO 05/09/17 15:30 05/10/17 10:19 (NovoLOG SUPPLEMENTAL SCALE) 1 ACHS SQ 05/09/17 17:00 05/10/17 13:35 (D50w (Vial) Inj) 50 ml UNSCH PRN IV PUSH 05/09/17 15:00 (Glucagon Inj) 1 mg UNSCH PRN OTHER 05/09/17 15:00 (Lovenox Inj) 40 mg Q24H SQ 05/09/17 15:00 05/10/17 16:37 Sodium Chloride 1,000 ml @ 84 mls/hr [id number] IV 05/09/17 17:00 05/10/17 04:45 (Deltasone) 10 mg DAILY PO 05/09/17 20:15 05/10/17 12:03 (Tylenol) 650 mg Q6H PRN PO 05/09/17 20:30 (Crane 5-325 Mg) 1 tab Q4H PRN PO 05/09/17 20:30 05/09/17 22:01 (Crane 7.5-325 Mg) 1 tab Q4H PRN PO 05/09/17 20:30 (Narcan Inj) 0.4 mg UNSCH PRN IV PUSH 05/09/17 20:30 (Vasotec Inj) 1.25 mg Q6H PRN IV PUSH 05/10/17 07:15 (Synthroid) 100 mcg DAILY@0600 PO 05/11/17 06:00 Allergies Allergies Coded Allergies No Known Allergies (Unverified Adverse Reaction, Unknown, 05/09/17) Exam I&O / VS 05/10/17 05/10/17 05/11/17 15:00 23:00 07:00 # Voids 2 Vital Signs Date Time Temp Pulse Resp B/P (MAP) Pulse Ox O2 Delivery O2 Flow Rate FiO2 05/10/17 16:56 92 18 138/97 (111) 98 05/10/17 11:54 98.0 77 16 118/55 (76) 96 05/10/17 05:45 61 05/10/17 04:40 98.2 82 18 166/72 (103) 94 05/10/17 00:20 98.3 84 18 119/71 (87) 94 05/09/17 21:38 98.2 75 18 114/57 (76) 95 05/09/17 18:57 Objective Radiology Results Last [address] 05/09/17 1152 Signed Impressions: Service Date/Time: Tuesday, May 09, 2017 11:33 - CONCLUSION: Negative for acute process. CT angiogram pending to evaluate left MCA.. Rufino Stapleton MD FACR Neck CTA 05/09/17 1140 Signed Impressions: Service Date/Time: Tuesday, May 09, 2017 12:08 - CONCLUSION: Normal-appearing carotid arteries. No significant stenosis. Mike Johansen MD Head CTA 05/09/17 1140 Signed Impressions: Service Date/Time: Tuesday, May 09, 2017 12:08 - CONCLUSION: Intracranial vessels are all patent without embolic disease to explain current clinical symptoms. Akin Pang MD Chest X-Ray 05/09/17 0000 Signed Impressions: Service Date/Time: Tuesday, May 09, 2017 15:28 - CONCLUSION: Compensated cardiomegaly otherwise negative Rufino Stapleton MD FACR Brain MRI 05/09/17 0000 Signed Impressions: Service Date/Time: Tuesday, May 09, 2017 20:30 - CONCLUSION: Large stroke in the left occipital lobe medially. 2 small strokes within the cerebellum, one in the superior right vermis. No evidence of malignancy. No mass or mass effect. Timmy Gongora MD Micro and Labs Laboratory Tests Test 05/09/17 18:35 05/10/17 06:35 Troponin I LESS THAN 0.02 LESS THAN 0.02 White Blood Count 6.1 Red Blood Count 4.62 Hemoglobin 15.2 Hematocrit 43.5 Mean Corpuscular Volume 94.3 Mean Corpuscular Hemoglobin 32.9 Mean Corpuscular Hemoglobin Concent 34.9 Red Cell Distribution Width 12.6 Platelet Count 233 Mean Platelet Volume 7.9 Neutrophils (%) (Auto) 75.2 Lymphocytes (%) (Auto) 16.6 Monocytes (%) (Auto) 6.8 Eosinophils (%) (Auto) 1.0 Basophils (%) (Auto) 0.4 Neutrophils # (Auto) 4.6 Lymphocytes # (Auto) 1.0 Monocytes # (Auto) 0.4 Eosinophils # (Auto) 0.1 Basophils # (Auto) 0.0 CBC Comment DIFF FINAL Differential Comment Blood Urea Nitrogen 13 Creatinine 0.53 Random Glucose 98 Total Protein 6.0 Albumin 3.2 Calcium Level 8.1 Alkaline Phosphatase 51 Aspartate Amino Transf (AST/SGOT) 23 Alanine Aminotransferase (ALT/SGPT) 48 Total Bilirubin 0.3 Direct Bilirubin 0.1 Sodium Level 147 Potassium Level 3.6 Chloride Level 115 Carbon Dioxide Level 25.2 Anion Gap 7 Estimat Glomerular Filtration Rate 118 Hemoglobin A1c 6.0 Indirect Bilirubin 0.2 Triglycerides Level 51 Cholesterol Level 135 LDL Cholesterol 76 HDL Cholesterol 48.9 Cholesterol/HDL Ratio 2.76 Thyroid Stimulating Hormone 3rd Gen 0.027 Efren Aiken MD May 10, 2017 18:10
[2017-05-10] MEDS ORDERED: ALPRAZolam 0.25 MG TAB PO PRN (18:15)
[2017-05-10] MEDS ORDERED: LORazepam 2 MG/ML VIAL IV PUSH ONE (18:15)
[2017-05-10] MEDS: CLOPIDOGREL 75 MG TAB PO SCH (18:15)
--- NOTE | 2017-05-10 18:22 | EKG ---
Date Performed: 05/09/2017 Time Performed: 12:41:01 PTAGE: 61 years EKG: Sinus rhythm MINIMAL ST DEPRESSION BORDERLINE ECG NO PREVIOUS TRACING DOCTOR: Niru Marie Interpretating Date/Time 05/10/2017 18:21:51
--- NOTE | 2017-05-10 20:50 | EKG ---
Date Performed: 05/09/2017 Time Performed: 17:46:06 PTAGE: 61 years EKG: Sinus rhythm NORMAL ECG PREVIOUS TRACING : 05/09/2017 12.41 SINCE PRIOR TRACING NO SIGNIFICANT CHANGE NOTED DOCTOR: Niru Marie Interpretating Date/Time 05/10/2017 20:49:32
[2017-05-10] MEDS: ATORVASTATIN 40 MG TAB PO SCH (21:41)
[2017-05-10] MEDS: ACETAMINOPHEN/HYDROcodone 325 MG/5 MG TAB PO PRN (21:41)
[2017-05-11] VITALS (9 sets, daily range): BP systolic 115–178; BP diastolic 71–89; PULSE 67–96; RESP 18–20; TEMP 97.7–98; O2SAT 94–97
[2017-05-11] MEDS: traMADol HCL 50 MG TAB PO PRN ×2 (02:30→16:17)
[2017-05-11] MEDS: SODIUM CHLOR 0.9% 1000 ML INJ 1,000 ML IV SCH (05:11)
[2017-05-11] MEDS ORDERED: LEVOTHYROXINE SODIUM 100 MCG TAB PO SCH (06:00)
[2017-05-11] MEDS: INSULIN ASPART SUPPLEMENTAL SCALE SQ SCH ×3 (08:00→17:00)
[2017-05-11] MEDS: SODIUM CHLORIDE 0.9% FLUSH 10 ML FLUSH IV FLUSH SCH (09:00)
[2017-05-11] MEDS: VITAMIN E 400 UNIT CAP PO SCH (09:05)
[2017-05-11] MEDS: ASPIRIN 325 MG TAB PO SCH (09:05)
[2017-05-11] MEDS: predniSONE 5 MG TAB PO SCH (09:06)
[2017-05-11] MEDS: predniSONE 1 MG TAB PO SCH (09:06)
[2017-05-11] MEDS: CLOPIDOGREL 75 MG TAB PO SCH (09:07)
[2017-05-11] MEDS: ACETAMINOPHEN/HYDROcodone 325 MG/5 MG TAB PO PRN (09:07)
--- NOTE | 2017-05-11 12:37 | HHI.FPPN ---
Subjective Remarks Pt seen and examined this morning. No acute events overnight. Family present at bedside. Afebrile, vital signs stable. Pt reports feeling improved. She has not yet had echo completed. She denies acute chest pain, shortness of breath, weakness. She is very interested in going to [facility] if this is approved by her insurance. (Joshua Dunn MD R3) Objective Vitals Vital Signs Date Time Temp Pulse Resp B/P (MAP) Pulse Ox O2 Delivery O2 Flow Rate FiO2 05/11/17 12:06 97.7 84 18 115/71 (86) 95 05/11/17 08:43 97.9 80 20 163/78 (106) 94 05/11/17 05:31 80 05/11/17 05:29 98.0 80 18 145/81 (102) 95 05/11/17 02:07 97.9 73 18 178/89 (118) 97 05/10/17 20:50 98.4 78 18 144/81 (102) 95 05/10/17 20:00 96 05/10/17 16:56 92 18 138/97 (111) 98 I/O 05/10/17 05/10/17 05/10/17 05/11/17 05/11/17 05/11/17 07:00 15:00 23:00 07:00 15:00 23:00 # Voids 6 2 6 (Joshua Dunn MD R3) Result Diagram: 05/10/17 0635 05/10/17 0635 Objective Remarks GENERAL: Awake alert and oriented 3, in no acute distress, sitting up in chair SKIN: Warm and dry. HEAD: Normocephalic. EYES: No scleral icterus. No injection or drainage. NECK: Supple, trachea midline. No JVD or lymphadenopathy. CARDIOVASCULAR: Regular rate and rhythm without murmurs, gallops, or rubs. RESPIRATORY: Breath sounds equal bilaterally. No accessory muscle use. GASTROINTESTINAL: Abdomen soft, non-tender, bbsese. MUSCULOSKELETAL: No cyanosis, or edema. BACK: Nontender without obvious deformity. No CVA tenderness. Neuro: Cranial nerves all grossly intact. Extraocular movements intact. Patient denies any sensory deficits. Right arm 4+ out of 5 strength, left arm 5 out of 5 strength, (as compared to patient's baseline, due to her condition) (Joshua Dunn MD R3) A/P Assessment and Plan 61 y/o F, past medical history of syringomyelia with multiple surgeries, diabetes, hypertension, and hyperlipidemia presents as a stroke alert with mostly resolved symptoms. Discharge Planning Patient discharged to [facility] later today. (Joshua Dunn MD R3) Attending Attestation Patient seen and examined. Case reviewed and discussed with the resident team. Agree with plan of care as discussed with me and documented in the resident note. (Jasmin Leiva MD) Problem List: (1) Episode of dizziness ICD Codes: R42 - Dizziness and giddiness Status: Acute Plan: Episode of dizziness, presyncopal symptoms, speech difficulties, and some residual right hemiparesis Risk factors: HTN, DM CT brain and CTA unremarkable, CT negative for bleeding Follow-up further neurology consult recommendations - Continue aspirin - Continue Plavix - MRI of brain without contrast: Large stroke in left occipital region, small strokes and cerebellum - LDL low at 76 - f/u HbA1c - TSH low at 0.027 - Follow up echo, completed, not yet read. Fall precautions NIH stroke scale Neuro checks every 4 Stroke education Normal saline at 70 ml/hr Troponins negative x 3 EKG x 2: T-wave inversion 2 leads, non-contiguous: aVR and V1 , no ST elevations f/u with PT, OT, speech, CM (2) Chronic myofascial pain ICD Codes: M79.1 - Myalgia; G89.29 - Other chronic pain Status: Chronic Plan: Hold antispasmodics Hold Celebrex Continue tramadol Continue home prednisone (3) Hypertension ICD Codes: I10 - Hypertension Status: Acute Plan: BP stable hold home losartan 50 mg daily, consider resuming if patient is hypertensive When necessary medication on board for blood pressures 200/100 (4) Hypothyroid ICD Codes: E03.9 - Hypothyroidism, unspecified Status: Chronic Plan: Per chart review TSH was low last year and medication had to be titrated TSH low 0.027 Will resume home dose of Synthroid 88mcg f/u TSH as outpatient, continue to titrate dose as indicated (5) Diabetes ICD Codes: E11.9 - Type 2 diabetes mellitus without complications Status: Chronic Plan: Prediabetes, also on chronic steroids Follow up hemoglobin A1c Follow-up BS Insulin sliding scale (6) fen/ppx Status: Chronic Plan: Fluids: Pt tolerating PO, no fluids indicated Electrolytes: Continue to monitor Nutrition: Regular diet (Joshua Dunn MD R3) Joshua Dunn MD R3 May 11, 2017 12:37 Jasmin Leiva MD May 15, 2017 11:07
[2017-05-11] MEDS: ENOXAPARIN SODIUM 40 MG/0.4 ML SYRINGE SQ SCH (14:58)
--- NOTE | 2017-05-11 16:47 | HHI.FPPN ---
Addendum to progress note ADDENDUM Reason for addendum: Additonal documentation Additional information Spoke to pt's nurse who stated Dr. Miner has cleared the pt transfer to [facility]. WD Dr. Dunn, and will complete pt discharge orders. Anthony Bentley MD, R1 May 11, 2017 16:47
[2017-05-11] MEDS ORDERED: PLAV75TA29 PO (17:48)
[2017-05-11] MEDS ORDERED: ALPR.25 PO (17:51)
--- NOTE | 2017-05-11 18:02 | HHI.DCPOC ---
Discharge Care Plan Diagnosis: (1) Episode of dizziness (2) Diabetes (3) Hypertension (4) CVA (cerebral vascular accident) Goals to Promote Your Health * To prevent worsening of your condition and complications * To maintain your health at the optimal level Directions to Meet Your Goals Take your medications as prescribed Follow your dietary instruction Follow activity as directed Keep your appointments as scheduled Take your immunizations and boosters as scheduled If your symptoms worsen call your PCP, if no PCP go to Urgent Care Center or Emergency Room Smoking is Dangerous to Your Health. Avoid second hand smoke Call the 24-hour hour crisis hotline for domestic abuse at Anthony Bentley MD, R1 May 11, 2017 18:02
[2017-05-11] MEDS ORDERED: ASA325 PO ×2 (18:56→18:57)
[2017-05-12] MEDS ORDERED: LEVOTHYROXINE SODIUM 88 MCG TAB PO SCH (06:00)
--- NOTE | 2017-05-14 09:23 | ECHRPT ---
Indication: CVA/TIA CONCLUSIONS Normal left ventricular size. Wall thickness is normal. The left ventricular systolic function is normal with an estimated ejection fraction in the range of 55-60%. The right ventricular size is normal. No atrial level shunt is demonstrated by color flow Doppler interrogation. There is mild tricuspid valve regurgitation. BP: 145 / 81 HR: 102 Rhythm: MEASUREMENTS (Male / Female) Normal Values Technical Quality: 2D ECHO LVOT Diameter 1.8 cm Aortic Root Diameter 3.0 cm M-MODE AV Cusp Separation MM 2.2 cm DOPPLER LVOT Peak Velocity 68.4 cm/s LVOT Peak Gradient 1.9 mmHg LVOT Velocity Time Integral 14.5 cm Mitral E Point Velocity 49.9 cm/s Mitral A Point Velocity 50.3 cm/s Mitral E to A Ratio 1.0 LV E' Lateral Velocity 9.8 cm/s Mitral E to LV E' Lateral Ratio 5.1 LV E' Septal Velocity 9.0 cm/s Mitral E to LV E' Septal Ratio 5.6 PV Peak Velocity 65.4 cm/s PV Peak Gradient 1.7 mmHg FINDINGS LEFT VENTRICLE Normal left ventricular size. Wall thickness is normal. The left ventricular systolic function is normal with an estimated ejection fraction in the range of 55-60%. RIGHT VENTRICLE The right ventricular size is normal. LEFT ATRIUM The left atrial size is normal. RIGHT ATRIUM The right atrial size is normal. ATRIAL SEPTUM No atrial level shunt is demonstrated by color flow Doppler interrogation. AORTA The aortic root and proximal ascending aorta are normal in size on limited imaging. MITRAL VALVE Structurally normal mitral valve. No mitral valve stenosis or regurgitation. AORTIC VALVE Trileaflet aortic valve. No aortic valve stenosis or regurgitation. TRICUSPID VALVE There is mild tricuspid valve regurgitation. PULMONARY VALVE No pulmonary valve regurgitation or stenosis. VESSELS The inferior vena cava is normal in size. PERICARDIUM No pericardial effusion. Timmy Avilez MD, FACC Edited by: [employer] Sales Specialist (Electronically Signed) Final Date:11 May 2017 15:22 Amended: 14 May 2017 09:22
== END 2017-05-11 19:40 | DRG 65 ==
LOC: NEPE 11:33 → NEDA 13:27 → NEPGCP 19:14 → OBSVTOIN 05-11 16:30
PROVIDERS: ADMIT Family Medicine; ATTEND Family Medicine
DX: I63.9 Cerebral infarction, unspecified (principal); G81.91 Hemiplegia, unspecified affecting right dominant side; I10 Essential (primary) hypertension; G62.9 Polyneuropathy, unspecified; Z86.73 Personal history of transient ischemic attack (TIA), and cerebral infarction without residual deficits; Z79.01 Long term (current) use of anticoagulants; E03.9 Hypothyroidism, unspecified; E11.9 Type 2 diabetes mellitus without complications; E78.5 Hyperlipidemia, unspecified; M85.80 Other specified disorders of bone density and structure, unspecified site; Q06.4 Hydromyelia; Z87.820 Personal history of traumatic brain injury; G89.29 Other chronic pain; R47.89 Other speech disturbances; Z79.52 Long term (current) use of systemic steroids
CPT/HCPCS: 70450; 70496; 70498; 70551; 71045; 80048; 80061; 80076; 82435; 82550; 82565; 82947; 82948; 83036; 84132; 84295; 84443; 84484; 84520; 84702; 85025; 85384; 85610; 85730; 86850; 86900; 86901; 93005; 93306; 96361; 96372; 96374; G0378; G8987-GO; G8987-GP; G8988-GO; G8988-GP; G8996-GN; G8997-GN; G8998-GN; J1650; J1815; J2060; J7030; J7512; Q9967

== ENCOUNTER 2017-06-21 11:52 | Inpatient (IN) | payer BC, OTHER ==
[2017-06-21] VITALS (12 sets, daily range): BP systolic 127–189; BP diastolic 63–95; PULSE 65–87; RESP 14–27; TEMP 98–98.2; O2SAT 96–100
[~2017-06-21 11:52] MED LIST changes: +ACET325T15 PO; +ALPR.25 PO; +ASA325 PO; -ASPI-516 CHEW; +CALC250 PO; -CELE200C PO; -COZA100T PO; +COZA50TA PO; +LEVO.075 PO; -LEVO88TA2 PO; -MONT10TA2 PO; +PLAV75TA29 PO; +PRED10 PO; -PRED2.5T PO; -PRED5TAB PO; +TIZA4 PO; +VITA-142 PO; -VITA400C2 PO; +VITE400 PO; +WHEE1EAC; -ZANA4CAP PO
[2017-06-21] MEDS ORDERED: SODIUM CHLOR 0.9% 1000 ML INJ 1,000 ML IV ONE (12:09)
[2017-06-21] MEDS ORDERED: IOHEXOL 350 MG/ML 10 ML VIAL (for RAD DIAG) IVCONTRAST ONE (12:20)
[2017-06-21] MEDS ORDERED: IODIXANOL 320 MG/ML 50 ML VIAL (for Rad CT) IVCONTRAST ONE (12:20)
--- NOTE | 2017-06-21 12:20 | PD ---
HPI Chief Complaint: Stroke alert Time Seen by Provider: 12:02 Travel History International Travel<30 days: No Contact w/Intl Traveler<30days: No Traveled to known affect area: No History of Present Illness HPI This patient arrives as a stroke alert. At 11:15 AM she developed right arm and right leg weakness. She has history of recent stroke 5 weeks ago and was sent to [place] [facility] after evaluation here. She is currently on aspirin and Plavix therapy. Duration 45 minutes. Severity is moderate. No alleviating factors. No exacerbating factors. PFSH Past Medical History Hx Anticoagulant Therapy: Yes Arthritis: Yes Asthma: No Autoimmune Disease: No Blood Disorders: No Anxiety: No Depression: No Heart Rhythm Problems: No Cancer: No Cardiovascular Problems: No High Cholesterol: Yes (high cholesterol) Chemotherapy: No Chest Pain: No Congestive Heart Failure: No COPD: No Cerebrovascular Accident: Yes (3 days ago) Diabetes: No Endocrine: No GERD: No Genitourinary: No Hiatal Hernia: No Hypertension: Yes Immune Disorder: No Kidney Stones: No Musculoskeletal: Yes (bilateral hands / back) Neurologic: Yes Psychiatric: No Reproductive: No Respiratory: No Migraines: No Radiation Therapy: No Renal Failure: No Seizures: Yes (1999 after falling from a horse) Sickle Cell Disease: No Sleep Apnea: No Thyroid Disease: Yes (hypoactive thyroid) Ulcer: No Past Surgical History Abdominal Surgery: No (appendicitis) AICD: No Appendectomy: Yes Arteriovenous Shunt: Yes (in spinal cord ) Cardiac Surgery: No Ear Surgery: No Endocrine Surgery: No Eye Surgery: No Genitourinary Surgery: Yes Gynecologic Surgery: No Insulin Pump: No Joint Replacement: No Neurologic Surgery: Yes Oral Surgery: Yes (wisdom teeth removed / crowns) Pacemaker: No Thoracic Surgery: No Social History Alcohol Use: Yes Tobacco Use: No Substance Use: No Allergies-Medications (Allergen,Severity, Reaction): Coded Allergies: No Known Allergies (Unverified Adverse Reaction, Unknown, 06/21/17) Reported Meds & Prescriptions Reported Meds & Active Scripts Active Xanax (Alprazolam) 0.25 Mg Tab 0.25 Mg PO Q12HR Ultram (Tramadol HCl) 50 Mg Tab 50 Mg PO Q6H PRN Synthroid (Levothyroxine Sodium) 75 Mcg Tab 75 Mcg PO DAILY@0600 30 Days Cozaar (Losartan Potassium) 50 Mg Tab 25 Mg PO BID@0600,1800 30 Days Zanaflex (Tizanidine HCl) 4 Mg Tab 4 Mg PO BID 30 Days Plavix (Clopidogrel Bisulfate) 75 Mg Tab 75 Mg PO DAILY Boniva (Ibandronate Sodium) 150 Mg Tab 150 Mg PO Q28D 90 Days Lipitor (Atorvastatin Calcium) 40 Mg Tab 40 Mg PO HS Sm Vitamin E (Vitamin E) 400 Unit Cap 400 Units PO DAILY 30 Days Oyster Shell 250 mg + Vit D Tb (Calcium/Vitamin D) 250 Mg Calcium (625 Mg)-125 Unit Tablet 250 Mg PO Q12HR 30 Days Eq Acetaminophen (Acetaminophen) 325 Mg Tab 650 Mg PO Q4H PRN 30 Days Wheelchair 1 Each Each Each Px Aspirin (Aspirin) 325 Mg Tab 325 Mg PO DAILY Reported Vitamin E (Vitamin E Acetate) 400 Unit Capsule 400 Units PO DAILY Calcium 500 +D (Calcium Carbonate-Cholecalciferol) 500-400 Mg-Unit Tab 1 Tab PO BID Review of Systems General / Constitutional: No: Fever Eyes: No: Visual changes HENT: No: Headaches Cardiovascular: No: Chest Pain or Discomfort Respiratory: No: Shortness of Breath Gastrointestinal: No: Abdominal Pain Genitourinary: No: Dysuria Musculoskeletal: No: Pain Skin: No Rash Neurologic: Positive: Weakness Psychiatric: No: Depression Endocrine: No: Polydipsia Hematologic/Lymphatic: No: Easy Bruising Physical Exam Narrative GENERAL: Well-nourished, well-developed patient with right-sided weakness . SKIN: Focused skin assessment reveals no rash and nodules. Skin is Warm and dry. HEAD: Atraumatic. Normocephalic. EYES: Pupils equal and round. No scleral icterus. No injection or drainage. ENT: No nasal bleeding or discharge. Mucous membranes pink and moist. NECK: Trachea midline. No JVD. CARDIOVASCULAR: Regular rate and rhythm. No murmur appreciated. RESPIRATORY: No accessory muscle use. Clear to auscultation. Breath sounds equal bilaterally. GASTROINTESTINAL: Abdomen soft, non-tender, nondistended. Hepatic and splenic margins not palpable. MUSCULOSKELETAL: No obvious deformities. No clubbing. No cyanosis. No edema. NEUROLOGICAL: Awake and alert. No obvious cranial nerve deficits. Motor exam shows weakness of the right arm and leg compared to the left side. Sensation subjectively intact. Normal speech. PSYCHIATRIC: Appropriate mood and affect; insight and judgment reasonable. Data Data Last Documented VS Vital Signs Date Time Temp Pulse Resp B/P (MAP) Pulse Ox O2 Delivery O2 Flow Rate FiO2 06/21/17 13:43 68 16 161/82 (108) 99 Nasal Cannula 2.00 06/21/17 12:34 98.0 Orders Orders Diet Npo (06/21/17 Lunch) Activity Bed Rest (06/21/17 ) Electrocardiogram (06/21/17 ) I-Stat Profile (06/21/17 12:09) Prothrombin Time / Inr (Pt) (06/21/17 12:09) Act Partial Throm Time (Ptt) (06/21/17 12:09) Complete Blood Count With Diff (06/21/17 12:09) Fibrinogen (06/21/17 12:09) Creatine Kinase (Cpk) (06/21/17 12:09) Troponin I (06/21/17 12:09) Ua Includes Microscopic (06/21/17 12:09) Drug Screen, Random Urine (06/21/17 12:09) Type And Screen (06/21/17 12:09) Ct Brain W/O Iv Contrast(Rout) (06/21/17 ) Cta Brain W Iv Contrast W 3d (06/21/17 12:09) Cta Neck W Iv Contrast W 3d (06/21/17 12:09) Consult Neurology (06/21/17 ) Blood Glucose (06/21/17 12:09) Ecg Monitoring (06/21/17 12:09) Neuro Checks Q2HX12,Q4H (06/21/17 12:09) Nursing Bedside Swallow Assess .ONCE (06/21/17 12:09) Iv Access Insert/Monitor (06/21/17 12:09) NPO (06/21/17 12:09) Oximetry (06/21/17 12:09) Resp Oxygen Nc Stroke (06/21/17 ) Sodium Chlor 0.9% 1000 Ml Inj (Ns 1000 M (06/21/17 12:09) Cath For Specimen (06/21/17 12:09) Heparin-D5w 25,000 U/250 Ml (Heparin-D5w (06/21/17 12:45) Cbc No Diff, Includes Plts (06/24/17 06:00) Occult Blood (Hemoccult) Stool (06/21/17 12:39) Westergren Sedimentation Rate (06/21/17 12:54) Vitamin B1 (Thiamine) (06/21/17 12:54) Vitamin B12 (06/21/17 12:54) Methylmalonic Acid (Mma) (06/21/17 12:54) Mri Brain W&W/O Contrast (06/21/17 12:54) Research Program Assistant / Telemetry TYLER.Q8H (06/21/17 12:54) [place] (06/21/17 12:54) ^ Other Nursing Orders (06/21/17 12:54) Sodium Chlor 0.9% 1000 Ml Inj (Ns 1000 M (06/21/17 12:54) Consult Pt Eval & Treat (06/21/17 12:54) Scd&Teds Bilateral/Knee High TYLER.QSHIFT (06/21/17 12:54) Prothrombin Time / Inr (Pt) (06/22/17 05:00) Prothrombin Time / Inr (Pt) (06/23/17 05:00) Prothrombin Time / Inr (Pt) (06/24/17 05:00) Prothrombin Time / Inr (Pt) (06/25/17 05:00) Prothrombin Time / Inr (Pt) (06/26/17 05:00) Prothrombin Time / Inr (Pt) (06/27/17 05:00) Warfarin (Coumadin) (06/21/17 16:00) Consult Cardiology (06/21/17 ) Act Partial Throm Time (Ptt) (06/21/17 13:14) (Hub Use Only)Inp Phy Cons/Ref (06/21/17 ) Labs Laboratory Tests Test 06/21/17 12:00 06/21/17 12:39 06/21/17 12:52 Bedside Hemoglobin 11.6 G/DL Bedside Hematocrit 34.0 % Bedside Sodium 142 MMOL/L Bedside Potassium 4.9 MMOL/L Bedside Chloride 110 MMOL/L Bedside Blood Urea Nitrogen 16 MG/DL Bedside Creatinine 0.5 MG/DL Bedside Glucose 111 MG/DL Total Creatine Kinase 135 U/L Troponin I LESS THAN 0.02 NG/ML White Blood Count 7.2 TH/MM3 Red Blood Count 3.95 MIL/MM3 Hemoglobin 13.0 GM/DL Hematocrit 38.1 % Mean Corpuscular Volume 96.5 FL Mean Corpuscular Hemoglobin 32.9 PG Mean Corpuscular Hemoglobin Concent 34.1 % Red Cell Distribution Width 13.9 % Platelet Count 216 TH/MM3 Mean Platelet Volume 6.8 FL Neutrophils (%) (Auto) 84.7 % Lymphocytes (%) (Auto) 10.5 % Monocytes (%) (Auto) 4.1 % Eosinophils (%) (Auto) 0.4 % Basophils (%) (Auto) 0.3 % Neutrophils # (Auto) 6.1 TH/MM3 Lymphocytes # (Auto) 0.8 TH/MM3 Monocytes # (Auto) 0.3 TH/MM3 Eosinophils # (Auto) 0.0 TH/MM3 Basophils # (Auto) 0.0 TH/MM3 CBC Comment DIFF FINAL Differential Comment Prothrombin Time 10.7 SEC Prothromb Time International Ratio 1.1 RATIO Activated Partial Thromboplast Time 20.9 SEC Fibrinogen 248 mg/dL MDM Medical Screen Exam Complete: Yes Emergency Medical Condition: Yes Medical Record Reviewed: Yes Differential Diagnosis Ischemic CVA, hemorrhagic CVA, TIA Narrative Course I have reviewed the patient's electronic medical record. Reviewed her admission history and physical to [facility] The patient presents as a stroke alert. I have ordered a stroke alert protocol I discussed with neurologist on-call Dr. Ibarra Patient had a full stroke alert protocol done including EKG and labs and brain CT which shows no hemorrhage. There is some encephalomalacia from prior stroke. CT of the carotids is negative. CTA of the brain reveals a abnormality in the basilar artery which could be some clot. I discussed with Dr. Lewis and he does not recommend actively pursuing removing this. He thinks this would be relevant for medical management Neurologist is initiated heparin and Coumadin He recommended intensive care monitoring so I have reviewed with the medical residents and they will admit to intensive care Critical Care Narrative Aggregate critical care time was 37 minutes. Time to perform other separately billable procedures was not included in the critical care time. My time did not include minutes spent treating any other patients simultaneously or on activities that did not directly contribute to the patient's treatment. The services I provided to this patient were to treat and/or prevent clinically significant deterioration that could result in: Brain stem herniation, permanent neurologic deficit, cardiopulmonary arrest I provided critical care services requiring my management, as noted below: Chart data review, documentation time, medication orders and management, vital sign assessments/reviewing monitor data, ordering and reviewing lab tests, ordering and interpreting/reviewing x-rays and diagnostic studies, care of the patient and discussion of the patient with the admitting physicians. Stroke Alert NIHSS NIH Stroke Scale Result: 5 NIHSS Time Completed: 12:00 Thrombolytic Contraindications Contraindications Comment: Neurologist does not recommend TPA due to recent acute strokes Diagnosis Diagnosis: Primary Impression: CVA (cerebral vascular accident) Qualified Codes: I63.22 - Cerebral infarction due to unspecified occlusion or stenosis of basilar artery Admitting Physician Requests: Admit Dashawn Rosenthal MD Jun 21, 2017 12:20
--- NOTE | 2017-06-21 12:32 | RADRPT ---
EXAM DATE/TIME: 06/21/2017 12:06 [facility] COMPARISON: MRI BRAIN W/O CONTRAST, May 09, 2017, 20:30. CT BRAIN W/O CONTRAST, May 16, 2017, 18:24. INDICATIONS : Stroke alert, right facial droop and right sided weakness RADIATION DOSE: 56.35 CTDIvol (mGy) This report was called by Shiv Ramos to Dr. Ben Ibarra at 12: 18pm MEDICAL HISTORY : Non-responsive. SURGICAL HISTORY : Non-responsive. ENCOUNTER: Initial ACUITY: 1 day PAIN SCALE: Non-responsive LOCATION: cranial TECHNIQUE: Multiple contiguous axial images were obtained of the head. Using automated exposure control and adj ustment of the mA and/or kV according to patient size, radiation dose was kept as low as reasonably a chievable to obtain optimal diagnostic quality images. DICOM format image data is available electro nically for review and comparison. FINDINGS: The ventricles are normal in size and configuration. There is no acute cranial hemorrhage. The examination demonstrates an old area of encephalomalacia involving the left occipital cortex. No significant abnormal extra-axial fluid collections are identified. No mass lesion is present. Imaging through the posterior fossa demonstrates changes consistent with a subsequent craniotomy. The re is minimal encephalomalacia in the right cerebellar hemisphere. There appears to be a Chiari type I malformation. CONCLUSION: 1. Encephalomalacic infarct involving the medial left occipital cortex. 2. Previous suboccipital craniotomy for Chiari malformation. 3. The left occipital cortex is new compared to previous CT dated 05/16/17. Giovanni Stapleton MD on June 21, 2017 at 12:19 Board Certified Radiologist. This report was verified electronically.
--- NOTE | 2017-06-21 13:09 | RADRPT ---
EXAM DATE/TIME: 06/21/2017 12:20 [facility] COMPARISON: No previous studies available for comparison. INDICATIONS : Stroke alert, right sided weakness and facial droop IV CONTRAST: 75 cc Visipaque (iodixanol) IV RADIATION DOSE: 10.02 CTDIvol (mGy) MEDICAL HISTORY : Non-responsive. SURGICAL HISTORY : Non-responsive. ENCOUNTER: Initial ACUITY: 1 day PAIN SCALE: Non-responsive LOCATION: cranial TECHNIQUE: Volumetric scanning was performed using a multi-row detector CT scanner. The data was post processed with a variety of visualization algorithms including full volume maximum intensity projection, multi -planar sliding thin slab reformation, curved planar reformation, and surface rendering techniques. Using automated exposure control and adjustment of the mA and/or kV according to patient size, radiat ion dose was kept as low as reasonably achievable to obtain optimal diagnostic quality images. DICO M format image data is available electronically for review and comparison. FINDINGS: There is an elongated eccentric somewhat tubular configuration filling defect within the upper aspect of the basilar artery extending to the basilar tip along the posterior and left wall of the vessel l umen which may be wall adherent clot, eccentric atheroma or short segment dissection. This does not p ropagate into the posterior cerebral vessels or the superior cerebellar vessels. The vertebrals are s ymmetric and unremarkable. The anterior circulation vessels are intact and unremarkable with no evidence of major vessel occlusi on or stenosis. No aneurysm or vascular malformation is identified. CONCLUSION: Nonocclusive finding in the basilar artery with differential considerations as above. Andrew Lewis MD on June 21, 2017 at 12:45 Board Certified Radiologist. This report was verified electronically.
[2017-06-21 13:18] LABS: TROPONIN I LESS THAN 0.02 NG/ML (0.02-0.05)
[2017-06-21 13:21] LABS: AUTOMATED NEUTROPHIL # 6.1 TH/MM3 (1.8-7.7); BASOPHIL % 0.3 % (0.0-2.0); EOSINOPHIL % 0.4 % (0.0-4.0); HEMATOCRIT 38.1 % (35.0-46.0); LYMPH % 10.5 % (9.0-44.0); LYMPHOCYTE # 0.8 TH/MM3 (1.0-4.8); MEAN CELL VOLUME 96.5 FL (80.0-100.0); MEAN CORPUSCULAR HEMOGLOBIN 32.9 PG (27.0-34.0); MEAN CORPUSCULAR HGB CONC 34.1 % (32.0-36.0); MEAN PLATELET VOLUME 6.8 FL (7.0-11.0); MONO % 4.1 % (0.0-8.0); MONOCYTE # 0.3 TH/MM3 (0-0.9); NEUT % 84.7 % (16.0-70.0); PLATELET COUNT 216 TH/MM3 (150-450); RED BLOOD COUNT 3.95 MIL/MM3 (4.00-5.30); RED CELL DISTRIBUTION WIDTH 13.9 % (11.6-17.2); WHITE BLOOD COUNT 7.2 TH/MM3 (4.0-11.0)
--- NOTE | 2017-06-21 13:36 | RADRPT ---
EXAM DATE/TIME: 06/21/2017 12:20 [facility] COMPARISON: CTA CAROTID ARTERIES W 3D RECON, May 09, 2017, 12:08. INDICATIONS : Stoke alert, right sided weakness and facial droop IV CONTRAST: 75 cc Visipaque (iodixanol) IV ; Cumulative dose for multiple exams. RADIATION DOSE: 10.02 CTDIvol (mGy) ; Combined studies MEDICAL HISTORY : Non-responsive. SURGICAL HISTORY : Non-responsive. ENCOUNTER: Initial ACUITY: 1 day PAIN SCALE: 0/10 LOCATION: neck Elevated flow velocities and ICA/CCA ratios have been found to correlate with increased degrees of vessel stenosis, calculated as percentage of diameter relative to a normal segment of distal ICA/CCA. TECHNIQUE: Volumetric scanning was performed using a multirow detector CT scanner. The data was post processed with a variety of visualization algorithms including full-volume maximum intensity projection, multip lanar sliding thin-slab reformation, curved-planar reformation, and surface-rendering techniques. Us ing automated exposure control and adjustment of the mA and/or kV according to patient size, radiatio n dose was kept as low as reasonably achievable to obtain optimal diagnostic quality images. DICOM f ormat image data is available electronically for review and comparison. FINDINGS: AORTIC ARCH: There is a three-vessel origin of the great vessels from the aorta. No evidence of ostial narrowing. RIGHT CAROTID: The common carotid artery is intact. The carotid bulb has a normal configuration without ulceration o r narrowing. Mild wall calcification carotid bulb without luminal narrowing. The internal carotid a rtery lumen is smooth without stenosis. The external carotid artery is intact. LEFT CAROTID: The common carotid artery is intact. The carotid bulb has a normal configuration without ulceration or narrowing. The internal carotid artery lumen is smooth without stenosis. The external carotid ar janey is intact. VERTEBRALS: The vertebral arteries have a symmetric diameter. No stenotic lesions are seen. CONCLUSION: Negative CTA of the carotids without local luminal narrowing or dissection. Marco A Luong MD on June 21, 2017 at 13:19 Board Certified Radiologist. This report was verified electronically.
[2017-06-21 13:41] LABS: INTERNATIONAL NORMALIZED RATIO 1.1 RATIO; PROTHROMBIN TIME - PATIENT 10.7 SEC (9.8-11.6)
[2017-06-21] MEDS: HEPARIN-D5W 25,000 U/250 ML 250 ML IV PRN (13:46)
[2017-06-21] MEDS ORDERED: GADODIAMIDE PF 287 MG/ML 20 ML VIAL (for RAD MRI) IVCONTRAST ONE (15:21)
--- NOTE | 2017-06-21 15:33 | MB ---
cc: LULU GIFFORD DATE OF CONSULTATION: 06/21/2017 HISTORY OF PRESENT ILLNESS A 61-year-old woman with a history of hypertension, hypercholesterolemia, hypothyroidism, Chiari evidently with suboccipital craniotomy and syrinx with left-sided weakness which is chronic. She was on a baby aspirin a day when she had a stroke in April of 2017, which left her with some right-sided weakness, slight vision change, it looked to be left occipital and multiple small right cerebellar infarcts. A CTA of the Frzfgu-no-Taxfxt and neck was negative at that time. Plavix was added. Echo was normal. She had about a 75% recovery, was walking around the street with a walker with physical therapy when today about 11 o'clock she suddenly became weak on the right side which is her better side and the left side being weak from the syrinx chronically. Thus, she was called a stroke alert. She came into the ER and CT showed the old infarct also some hypo-densities in the left posterior limiting internal capsule to some extent. She had a CTA of the neck and [id number] which shows a clot in the basilar artery but the CTA of the vertebrals look patent. The clot is not totally occlusive, it is filling I would say about 75% of the basilar artery. She has no chest pain or palpitations recently or headache. REVIEW OF SYSTEMS She denied any diabetes, known atrial fibrillation, SC, stent, angioplasty, renal, hepatic or pulmonary disease, lupus, ulcer, cancer, seizure. SOCIAL HISTORY Not a smoker or drinker. Lives with her . FAMILY HISTORY Negative cancer, seizure, stroke. Positive for CAD. PHYSICAL EXAMINATION VITAL SIGNS: 65, 16, 157/80. She is in sinus rhythm on tele. NECK: There were no carotid bruits. HEART: Regular rhythm. I do not detect a murmur. NEURO: Pupils are equal, visual foster are full. Extraocular movements intact without nystagmus. I do not see a visual field defect despite the left occipital lobe infarct. Face has just a hint of a right facial droop on the right side but she moves it well. Tongue was midline. Left side is chronically weak. I would say the left upper extremity is about a 3+ to 4-/5. Left lower extremity is about a 4+/5. Tibialis anterior normal on the left. The right upper extremity, at this point it was a little bit stronger than it was about 30 minutes ago. I give the triceps at about a 4/5. Finger extensors are affected due to the syrinx but the wrist extensor is about a 4+/5. The right iliopsoas is about a 4-/5. Tibialis anterior normal on the right side. Toes are upgoing bilaterally. DTRs are slightly hyperreflexic in the bilateral knee jerks but trace to absent at the brachial radialis bilaterally. Pinprick was intact throughout all four extremities. She is awake and alert. Speech is fluent, she is not aphasic. She has good pharyngeal, lingual and bugle sounds. She can follow commands well. LABORATORY DATA CBC, hematocrit is 34. CBC on 05/17/17 was normal with normal platelet count. Basic metabolic profile today is essentially normal, glucose 111. CPK and troponin are pending. LDL cholesterol last admission was only 76. TSH was low at 0.02, T4 being normal then. LFTs were normal last month. Troponin was normal last month. UA was small amount of leukocyte esterase only last month. MRI of the brain showed the acute infarcts that is noted and the CTA is as noted above. Echocardiogram was normal as noted. 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 I suspect she probably has occult atrial fibrillation and I have started her on IV heparin, no bolus ever. We will start her on Coumadin. She will need a loop recorder placed. Will have cardiology to see her to get the loop placed and keep her head of bed flat, IV hydration. I did talk with the family and the patient about the risk of bleeding with the heparin but I think we are at a higher risk here of propagation of the clot in the basilar or new clots from what I suspect is probably occult atrial fibrillation. MD OG Galeana/GARTH /12:47 PM /2:12 PM
[2017-06-21 15:58] LABS: BILIRUBIN, URINE NEG (NEG); BLOOD, URINE NEG (NEG); GLUCOSE,URINE NEG (NEG); KETONE, URINE NEG (NEG); NITRITE,URINE NEG (NEG); PH, URINE 6.5 (5.0-8.5); SQUAMOUS EPITHELIAL CELL URINE <1 /hpf (0-5); URINE COLOR LIGHT-YELLOW (YELLW/STRAW); URINE LEUKOCYTE ESTERASE NEG (NEG)
[2017-06-21] MEDS ORDERED: DO NOT ADM ANY ANTICOAGULANT DRUGS OTHER PRN (16:00)
[2017-06-21] MEDS: SODIUM CHLOR 0.9% 1000 ML INJ 1,000 ML IV SCH ×2 (16:30→23:38)
--- NOTE | 2017-06-21 16:39 | RADRPT ---
EXAM DATE/TIME: 06/21/2017 15:05 [facility] COMPARISON: MRI BRAIN W/O CONTRAST, May 09, 2017, 20:30. INDICATIONS : CVA. Right sided weakness, slurred speech, right sided facial droop and dizziness. CONTRAST: 20 cc Omniscan (gadodiamide) IV MEDICAL HISTORY : Hypertension. SURGICAL HISTORY : Appendectomy. Right wrist and brain surgery. ENCOUNTER: Initial ACUITY: 1 day PAIN SCORE: 0/10 LOCATION: Head. TECHNIQUE: Multiplanar, multisequence MRI of the brain was performed both prior to and following the administrat ion of paramagnetic contrast. FINDINGS: There is signal change and evolving encephalomalacia related to previous left [employer] stroke and in porti ons of the cerebellar hemispheres. An old left basal ganglia lacunar infarct is noted. There is no fo francis restriction of diffusion to suggest acute ischemic insult. There is no evidence of intracranial m ass or macroscopic hemorrhage. The extracranial structures are benign in intact. CONCLUSION: No acute intracranial findings Andrew Lewis MD on June 21, 2017 at 16:34 Board Certified Radiologist. This report was verified electronically.
[2017-06-21] MEDS ORDERED: BISACODYL 10 MG SUPP RECTAL PRN (17:00)
[2017-06-21] MEDS ORDERED: SENNOSIDES 8.6 MG TAB PO PRN (17:00)
[2017-06-21] MEDS ORDERED: LACTULOSE SYRUP 20 GM/30 ML CUP PO PRN (17:00)
[2017-06-21] MEDS ORDERED: ONDANSETRON HCL 4 MG/2 ML VIAL IVP PRN (17:00)
[2017-06-21] MEDS ORDERED: MAGNESIUM HYDROXIDE SUSP 30 ML CUP PO PRN (17:00)
[2017-06-21] MEDS ORDERED: SODIUM CHLORIDE 0.9% FLUSH 10 ML FLUSH IV FLUSH PRN (17:00)
[2017-06-21] MEDS ORDERED: NALOXONE HCL 0.4 MG/ML AMP IV PUSH PRN (17:00)
[2017-06-21] MEDS ORDERED: ACETAMINOPHEN 325 MG TAB PO PRN ×2 (17:00→18:15)
--- NOTE | 2017-06-21 18:10 | HHI.HP ---
HPI Service Critical Care Medicine Primary Care Physician Unknown Admission Diagnosis acute ischemic CVA, L basilar artery occlusion Diagnosis: Chief Complaint: Slurred speech, dizziness Travel History International Travel<30 Days: No Contact w/Intl Traveler <30 Da: No Traveled to Known Affected Are: No History of Present Illness 61 y/o right handed woman developed sudden speech difficulty and +/- right side weakness. By the time I saw here in the [facility] her speech was normal. Normotensive , sinus rhythm. She has been on dual antiplatelet therapy since her initial stroke 5 weeks ago. 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 She has been extensively evaluated by Dr. Ibarra. Review of Systems Constitutional: DENIES: Diaphoretic episodes, Fatigue, Fever, Weight gain, Weight loss, Chills, Dizziness, Change in appetite, Night Sweats Endocrine: DENIES: Abnorml menstrual pattern, Heat/cold intolerance, Polydipsia , Polyuria, Polyphagia Eyes: DENIES: Blurred vision, Diplopia, Eye inflammation, Eye pain, Vision loss , Photosensitivity, Double Vision Ears, nose, mouth, throat: DENIES: Tinnitus, Hearing loss, Vertigo, Nasal discharge, Oral lesions, Throat pain, Hoarseness, Ear Pain, Running Nose, Epistaxis, Sinus Pain, Toothache, Odynophagia Respiratory: DENIES: Apneas, Cough, Snoring, Wheezing, Hemoptysis, Sputum production, Shortness of breath Cardiovascular: DENIES: Chest pain, Palpitations, Syncope, Dyspnea on Exertion , PND, Lower Extremity Edema, Orthopnea, Claudication Gastrointestinal: DENIES: Abdominal pain, Black stools, Bloody stools, Constipation, Diarrhea, Nausea, Vomiting, Difficulty Swallowing, Anorexia Musculoskeletal: DENIES: Joint pain, Muscle aches, Stiffness, Joint Swelling, Back pain, Neck pain Neurologic: COMPLAINS OF: Localized weakness, Speech Problems, Poor Balance Psychiatric: DENIES: Anxiety, Confusion, Mood changes, Depression, Hallucinations, Agitation, Suicidal Ideation, Homicidal Ideation, Delusions Past Family Social History Allergies: Coded Allergies: No Known Allergies (Unverified Adverse Reaction, Unknown, 06/21/17) Past Medical History Past Medical History Hx Anticoagulant Therapy: Yes Arthritis: Yes Asthma: No Autoimmune Disease: No Blood Disorders: No Anxiety: No Depression: No Heart Rhythm Problems: No Cancer: No Cardiovascular Problems: No High Cholesterol: Yes (high cholesterol) Chemotherapy: No Chest Pain: No Congestive Heart Failure: No COPD: No Cerebrovascular Accident: Yes (3 days ago) Diabetes: No Endocrine: No GERD: No Genitourinary: No Hiatal Hernia: No Hypertension: Yes Immune Disorder: No Kidney Stones: No Musculoskeletal: Yes (bilateral hands / back) Neurologic: Yes Psychiatric: No Reproductive: No Respiratory: No Migraines: No Radiation Therapy: No Renal Failure: No Seizures: Yes (2000 after falling from a horse) Sickle Cell Disease: No Sleep Apnea: No Thyroid Disease: Yes (hypoactive thyroid) Ulcer: No Past Surgical History Abdominal Surgery: No (appendicitis) AICD: No Appendectomy: Yes Arteriovenous Shunt: Yes (in spinal cord ) Cardiac Surgery: No Ear Surgery: No Endocrine Surgery: No Eye Surgery: No Genitourinary Surgery: Yes Gynecologic Surgery: No Insulin Pump: No Joint Replacement: No Neurologic Surgery: Yes Oral Surgery: Yes (wisdom teeth removed / crowns) Pacemaker: No Thoracic Surgery: No Social History Alcohol Use: Yes Tobacco Use: No Substance Use: No Allergies-Medications Allergies-Medications (Allergen,Severity, Reaction): Coded Allergies: No Known Allergies (Unverified Adverse Reaction, Unknown, 06/21/17) Reported Meds & Prescriptions Reported Meds & Active Scripts Active Xanax (Alprazolam) 0.25 Mg Tab 0.25 Mg PO Q12HR Ultram (Tramadol HCl) 50 Mg Tab 50 Mg PO Q6H PRN Synthroid (Levothyroxine Sodium) 75 Mcg Tab 75 Mcg PO DAILY@0600 30 Days Cozaar (Losartan Potassium) 50 Mg Tab 25 Mg PO BID@0600,1800 30 Days Zanaflex (Tizanidine HCl) 4 Mg Tab 4 Mg PO BID 30 Days Plavix (Clopidogrel Bisulfate) 75 Mg Tab 75 Mg PO DAILY Boniva (Ibandronate Sodium) 150 Mg Tab 150 Mg PO Q28D 90 Days Lipitor (Atorvastatin Calcium) 40 Mg Tab 40 Mg PO HS Sm Vitamin E (Vitamin E) 400 Unit Cap 400 Units PO DAILY 30 Days Oyster Shell 250 mg + Vit D Tb (Calcium/Vitamin D) 250 Mg Calcium (625 Mg)-125 Unit Tablet 250 Mg PO Q12HR 30 Days Eq Acetaminophen (Acetaminophen) 325 Mg Tab 650 Mg PO Q4H PRN 30 Days Wheelchair 1 Each Each Each Px Aspirin (Aspirin) 325 Mg Tab 325 Mg PO DAILY Reported Vitamin E (Vitamin E Acetate) 400 Unit Capsule 400 Units PO DAILY Calcium 500 +D (Calcium Carbonate-Cholecalciferol) 500-400 Mg-Unit Tab 1 Tab PO BID Physical Exam Vital Signs Vital Signs Date Time Temp Pulse Resp B/P (MAP) Pulse Ox O2 Delivery O2 Flow Rate FiO2 06/21/17 16:00 98.2 70 27 127/79 (95) 98 06/21/17 16:00 99 Nasal Cannula 2.00 06/21/17 16:00 70 06/21/17 15:08 06/21/17 14:33 71 14 142/66 (91) 99 Nasal Cannula 2.00 06/21/17 13:43 68 16 161/82 (108) 99 Nasal Cannula 2.00 06/21/17 13:34 68 14 130/63 (85) 99 Nasal Cannula 2.00 06/21/17 13:08 71 16 189/81 (117) 99 Nasal Cannula 2.00 06/21/17 13:03 97 Nasal Cannula 2.00 06/21/17 13:03 100 Nasal Cannula 2.00 06/21/17 12:34 98.0 65 16 157/80 (105) 98 06/21/17 12:02 99 2.00 06/21/17 12:02 99 Nasal Cannula 2.00 06/21/17 12:00 65 14 160/95 (116) 99 Nasal Cannula 2.00 Physical Exam Head: Atraumatic. Neck: Supple, airway widely patent. Lungs: Clear. Heart: NL S1S2, RRR. No JVD. Neuro: Speech clear. Moves 4 limbs to command. Laboratory Laboratory Tests Test 06/21/17 12:00 06/21/17 12:39 06/21/17 12:52 06/21/17 13:20 Bedside Hemoglobin 11.6 Bedside Hematocrit 34.0 Bedside Sodium 142 Bedside Potassium 4.9 Bedside Chloride 110 Bedside Blood Urea Nitrogen 16 Bedside Creatinine 0.5 Bedside Glucose 111 Total Creatine Kinase 135 Troponin I LESS THAN 0.02 Erythrocyte Sedimentation Rate 5 White Blood Count 7.2 Red Blood Count 3.95 Hemoglobin 13.0 Hematocrit 38.1 Mean Corpuscular Volume 96.5 Mean Corpuscular Hemoglobin 32.9 Mean Corpuscular Hemoglobin Concent 34.1 Red Cell Distribution Width 13.9 Platelet Count 216 Mean Platelet Volume 6.8 Neutrophils (%) (Auto) 84.7 Lymphocytes (%) (Auto) 10.5 Monocytes (%) (Auto) 4.1 Eosinophils (%) (Auto) 0.4 Basophils (%) (Auto) 0.3 Neutrophils # (Auto) 6.1 Lymphocytes # (Auto) 0.8 Monocytes # (Auto) 0.3 Eosinophils # (Auto) 0.0 Basophils # (Auto) 0.0 CBC Comment DIFF FINAL Differential Comment Prothrombin Time 10.7 Prothromb Time International Ratio 1.1 Activated Partial Thromboplast Time 20.9 Fibrinogen 248 Vitamin B12 Level 429 Urine Color LIGHT-YELLOW Urine Turbidity CLEAR Urine pH 6.5 Urine Specific [place] 1.019 Urine Protein NEG Urine Glucose (UA) NEG Urine Ketones NEG Urine Occult Blood NEG Urine Nitrite NEG Urine Bilirubin NEG Urine Urobilinogen LESS THAN 2.0 Urine Leukocyte Esterase NEG Urine RBC 1 Urine WBC 1 Urine Squamous Epithelial Cells <1 Urine Opiates Screen NEG Urine Barbiturates Screen NEG Urine Amphetamines Screen NEG Urine Benzodiazepines Screen POS Urine Cocaine Screen NEG Urine Cannabinoids Screen NEG Result Diagram: 06/21/17 1252 Caprini VTE Risk Assessment Caprini VTE Risk Assessment: Mod/High Risk (score >= 2) Caprini Risk Assessment Model Point Value = 1 Point Value = 2 Point Value = 3 Point Value = 5 Age 41-60 Minor surgery BMI > 25 kg/m2 Swollen legs Varicose veins or History of unexplained or recurrent spontaneous Oral contraceptives or hormone replacement Sepsis (< 1 month) Serious lung disease, including pneumonia (< 1 month) Abnormal pulmonary function Acute myocardial infarction Congestive heart failure (< 1 month) History of inflammatory bowel disease Medical patient at bed rest Age 61-74 Arthroscopic surgery Major open surgery (> 45 min) Laparoscopic surgery (> 45 min) Malignancy Confined to bed (> 72 hours) Immobilizing plaster cast Central venous access Age >= 75 History of VTE Family history of VTE Factor V Leiden Prothrombin [id number] Lupus anticoagulant Anticardiolipin antibodies Elevated serum homocysteine Heparin-induced thrombocytopenia Other congenital or acquired thrombophilia Stroke (< 1 month) Elective arthroplasty Hip, pelvis, or leg fracture Acute spinal cord injury (< 1 month) Prophylaxis Regimen Total Risk Factor Score Risk Level Prophylaxis Regimen 0-1 Low Early ambulation 2 Moderate Order ONE of the following: *Sequential Compression Device (SCD) *Heparin 5000 units SQ BID 3-4 Higher Order ONE of the following medications: *Heparin 5000 units SQ TID *Enoxaparin/Lovenox 40 mg SQ daily (WT < 150 kg, CrCl > 30 mL/min) *Enoxaparin/Lovenox 30 mg SQ daily (WT < 150 kg, CrCl > 10-29 mL/min) *Enoxaparin/Lovenox 30 mg SQ BID (WT < 150 kg, CrCl > 30 mL/min) AND/OR *Sequential Compression Device (SCD) 5 or more Highest Order ONE of the following medications: *Heparin 5000 units SQ TID (Preferred with Epidurals) *Enoxaparin/Lovenox 40 mg SQ daily (WT < 150 kg, CrCl > 30 mL/min) *Enoxaparin/Lovenox 30 mg SQ daily (WT < 150 kg, CrCl > 10-29 mL/min) *Enoxaparin/Lovenox 30 mg SQ BID (WT < 150 kg, CrCl > 30 mL/min) AND *Sequential Compression Device (SCD) Assessment and Plan Assessment and Plan Assessment: 1. Acute ischemic stroke. Plan: 1. Full anticoagulation with heparin. 2. F/U Head CT. 3. Pepcid. 4. PT, OT evaluation. 5. Acute CVA protocol. Overall impression: She has had clearing of her speech symptoms. Right arm strength is much improved. Protects airway well, normotensive. Phani Allan MD Jun 21, 2017 18:10
[2017-06-21] MEDS ORDERED: traMADol HCL 50 MG TAB PO PRN (18:15)
--- NOTE | 2017-06-21 18:21 | HHI.HP ---
HPI Service Family Medicine Primary Care Physician Unknown Admission Diagnosis acute ischemic CVA, L basilar artery occlusion Diagnoses: Chief Complaint: right sided weakness International Travel<30 Days: No Contact w/Intl Traveler<30days: No Known Affected Area: No History of Present Illness Mrs. Stoddard is a 61-year-old Female w/PHMx of syringomyelia with multiple surgeries and chronic left sided weakness from syrinx; diabetes, hypertension, hyperlipidemia and CVA in April 2017 presents as a stroke alert for right sided arm and leg weakness beginning this morning. Pt was feeling fine and walking with a cane when she experienced acute onset right arm and leg weakness. Patient was admitted for stroke workup and neurology was consulted by ED. Dr Ibarra saw the pt and determined tPA should not be administered and started heparin and coumadin. Her plavix was held. He has consulted cardiology for an occult afib workup. In April pt was admitted for stroke alert with CT brain and CTA negative; however, MRI brain showed large stroke in the Left occipital lobe medially and small mays within the cerebellum with no masses. ACS workup including Echo was negative. Pt was cleared for discharge to [place] [facility]. On exam pt has just returned from MRI and is wondering if we have results yet from her CT and MRI and is wondering why she might have afib now. She states she is not having trouble with speech, facial movement or sensation, and that right arm and leg weakness are much improved. There has been no incontinence, LOC, visual changes, headache, dysarthria, CP, SOB or other concerning neurological s/s. (Amando Bill MD R1) Review of Systems Constitutional: DENIES: Fever, Chills Eyes: DENIES: Diplopia, Vision loss Ears, nose, mouth, throat: DENIES: Nasal discharge, Sinus Pain Respiratory: DENIES: Shortness of breath Cardiovascular: DENIES: Chest pain, Syncope Gastrointestinal: DENIES: Abdominal pain, Constipation, Diarrhea, Nausea, Vomiting, Difficulty Swallowing Genitourinary: DENIES: Urinary incontinence Integumentary: DENIES: Rash Hematologic/lymphatic: DENIES: Lymphadenopathy Neurologic: COMPLAINS OF: Localized weakness, DENIES: Headache, Seizures, Speech Problems (Amando Bill MD R1) Past Family Social History Past Medical History preDM (on steroids) 01/12 osteopenia 2013 (Pt s/p fosamax weekly estim 2003- 2008), now on bisphosphanate holiday Chronic myofascial and neuropathic pain with neuropathy Chiari malformation with syringomyelia Hyperlipidemia Hypertension Seasonal allergies menopause 2006 Hypothyroid 1989 desensitization shots Right wrist fracture 2007 Left clavicle fracture age 4 Right leg fracture age 12 Head injury with concussion 2000 Past Surgical History Lap Appy 03/14, benign pathology Right wrist 2007 Suboccipital craniectomy, laminectomy C1-C4, myelotomy C4, with insertion of Silastic T-tube for drainage of syrinx into subarachnoid space September 1989 Reported Medications Reported Meds & Active Scripts Active Xanax (Alprazolam) 0.25 Mg Tab 0.25 Mg PO Q12HR Ultram (Tramadol HCl) 50 Mg Tab 50 Mg PO Q6H PRN Synthroid (Levothyroxine Sodium) 75 Mcg Tab 75 Mcg PO DAILY@0600 30 Days Cozaar (Losartan Potassium) 50 Mg Tab 25 Mg PO BID@0600,1800 30 Days Zanaflex (Tizanidine HCl) 4 Mg Tab 4 Mg PO BID 30 Days Plavix (Clopidogrel Bisulfate) 75 Mg Tab 75 Mg PO DAILY Boniva (Ibandronate Sodium) 150 Mg Tab 150 Mg PO Q28D 90 Days Lipitor (Atorvastatin Calcium) 40 Mg Tab 40 Mg PO HS Sm Vitamin E (Vitamin E) 400 Unit Cap 400 Units PO DAILY 30 Days Oyster Shell 250 mg + Vit D Tb (Calcium/Vitamin D) 250 Mg Calcium (625 Mg)-125 Unit Tablet 250 Mg PO Q12HR 30 Days Eq Acetaminophen (Acetaminophen) 325 Mg Tab 650 Mg PO Q4H PRN 30 Days Wheelchair 1 Each Each Each Px Aspirin (Aspirin) 325 Mg Tab 325 Mg PO DAILY Reported Vitamin E (Vitamin E Acetate) 400 Unit Capsule 400 Units PO DAILY Calcium 500 +D (Calcium Carbonate-Cholecalciferol) 500-400 Mg-Unit Tab 1 Tab PO BID (Amando Bill MD R1) Allergies: Coded Allergies: No Known Allergies (Unverified Adverse Reaction, Unknown, 06/21/17) Active Ordered Medications Current Medications Medications (Trade) Dose Ordered Sig/Rob Route Start Time Stop Time Status Last Admin Heparin Sodium/ Dextrose 250 ml @ 12 mls/hr TITRATE PRN IV 06/21/17 12:45 06/21/17 13:46 Sodium Chloride 1,000 ml @ 100 mls/hr Q10H IV 06/21/17 12:54 (Coumadin) 5 mg DAILY@1600 PO 06/21/17 16:00 Miscellaneous Information ALL NURSING DEPARTME... UNSCH PRN OTHER 06/21/17 16:00 06/22/17 15:59 (NS Flush) 2 ml UNSCH PRN IV FLUSH 06/21/17 17:00 (NS Flush) 2 ml BID IV FLUSH 06/21/17 21:00 (Tylenol) 650 mg Q4H PRN PO 06/21/17 17:00 (Zofran Inj) 4 mg Q6H PRN IVP 06/21/17 17:00 (Ambien) 5 mg HS PRN PO 06/21/17 17:00 (Narcan Inj) 0.4 mg UNSCH PRN IV PUSH 06/21/17 17:00 (Jayde-Colace) 1 tab BID PO 06/21/17 21:00 (Milk Of Magnesia Liq) 30 ml Q12H PRN PO 06/21/17 17:00 (Senokot) 17.2 mg Q12H PRN PO 06/21/17 17:00 (Dulcolax Supp) 10 mg DAILY PRN RECTAL 06/21/17 17:00 (Lactulose Liq) 30 ml DAILY PRN PO 06/21/17 17:00 (Lexapro) 10 mg DAILY PO 06/22/17 09:00 Family History Dad age 59 [place], history tobacco and alcohol Mom age 69 complications of colon cancer diagnosed in her mid 60s, also had rheumatoid arthritis Siblings with hyperlipidemia otherwise alive and well. Social History ,no natural children, spouse diagnosed with Hep B/ liver transplant has stepdaughter that she helped raise from age 9, and 2 grandchildren. 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[employer], and commercial real estate associate (Amando Bill MD R1) Physical Exam Vital Signs Vital Signs Date Time Temp Pulse Resp B/P (MAP) Pulse Ox O2 Delivery O2 Flow Rate FiO2 06/21/17 16:00 99 Nasal Cannula 2.00 06/21/17 15:08 06/21/17 14:33 71 14 142/66 (91) 99 Nasal Cannula 2.00 06/21/17 13:43 68 16 161/82 (108) 99 Nasal Cannula 2.00 06/21/17 13:34 68 14 130/63 (85) 99 Nasal Cannula 2.00 06/21/17 13:08 71 16 189/81 (117) 99 Nasal Cannula 2.00 06/21/17 13:03 97 Nasal Cannula 2.00 06/21/17 13:03 100 Nasal Cannula 2.00 06/21/17 12:34 98.0 65 16 157/80 (105) 98 06/21/17 12:02 99 2.00 06/21/17 12:02 99 Nasal Cannula 2.00 06/21/17 12:00 65 14 160/95 (116) 99 Nasal Cannula 2.00 Physical Exam GENERAL: This is a well-nourished, well-developed middle-aged female lying in bed a little anxious. SKIN: No rashes, ecchymoses or lesions. Cool and dry. HEAD: Atraumatic. Normocephalic. No temporal tenderness. EYES: PERRLA/EOMI. No scleral icterus. No injection or drainage. ENT: Nose without drainage. Throat without erythema. Uvula midline. Airway patent. NECK: Trachea midline. No JVD or lymphadenopathy. Supple, nontender, no meningeal signs. CARDIOVASCULAR: Regular rate and rhythm without murmurs, gallops, or rubs. RESPIRATORY: Clear to auscultation. Breath sounds equal bilaterally. No wheezes , rales, or rhonchi. GASTROINTESTINAL: Abdomen soft, non-tender, nondistended. No hepato-splenomegaly , or palpable masses. No guarding. Normal BS. MUSCULOSKELETAL: Extremities without clubbing, cyanosis, or edema. No joint tenderness, effusion, or edema noted. No calf tenderness. LLE 4/5, RLE 4/5 strength; RUE 4/5 and LUE 4/5 strength. NEUROLOGICAL: Awake, alert and oriented x3. Cranial nerves II through XII intact. Normal speech. Mild contracture of fingers on right hand with inability to perform fine motor finger touches; however, was able to perform finger-to- nose touches wnl. Moderate contracture of fingers of left hand and left forearm (chronic). Laboratory Laboratory Tests Test 06/21/17 12:00 06/21/17 12:39 06/21/17 12:52 06/21/17 13:20 Bedside Hemoglobin 11.6 Bedside Hematocrit 34.0 Bedside Sodium 142 Bedside Potassium 4.9 Bedside Chloride 110 Bedside Blood Urea Nitrogen 16 Bedside Creatinine 0.5 Bedside Glucose 111 Total Creatine Kinase 135 Troponin I LESS THAN 0.02 Erythrocyte Sedimentation Rate 5 White Blood Count 7.2 Red Blood Count 3.95 Hemoglobin 13.0 Hematocrit 38.1 Mean Corpuscular Volume 96.5 Mean Corpuscular Hemoglobin 32.9 Mean Corpuscular Hemoglobin Concent 34.1 Red Cell Distribution Width 13.9 Platelet Count 216 Mean Platelet Volume 6.8 Neutrophils (%) (Auto) 84.7 Lymphocytes (%) (Auto) 10.5 Monocytes (%) (Auto) 4.1 Eosinophils (%) (Auto) 0.4 Basophils (%) (Auto) 0.3 Neutrophils # (Auto) 6.1 Lymphocytes # (Auto) 0.8 Monocytes # (Auto) 0.3 Eosinophils # (Auto) 0.0 Basophils # (Auto) 0.0 CBC Comment DIFF FINAL Differential Comment Prothrombin Time 10.7 Prothromb Time International Ratio 1.1 Activated Partial Thromboplast Time 20.9 Fibrinogen 248 Vitamin B12 Level 429 Urine Color LIGHT-YELLOW Urine Turbidity CLEAR Urine pH 6.5 Urine Specific [place] 1.019 Urine Protein NEG Urine Glucose (UA) NEG Urine Ketones NEG Urine Occult Blood NEG Urine Nitrite NEG Urine Bilirubin NEG Urine Urobilinogen LESS THAN 2.0 Urine Leukocyte Esterase NEG Urine RBC 1 Urine WBC 1 Urine Squamous Epithelial Cells <1 Urine Opiates Screen NEG Urine Barbiturates Screen NEG Urine Amphetamines Screen NEG Urine Benzodiazepines Screen POS Urine Cocaine Screen NEG Urine Cannabinoids Screen NEG (Amando Bill MD R1) Result Diagram: 06/21/17 1252 Imaging Last Impressions Brain MRI 06/21/17 1254 Signed Impressions: Service Date/Time: May 15:05 - CONCLUSION: No acute intracranial findings Andrew Lewis MD Neck CTA 06/21/17 1209 Signed Impressions: Service Date/Time: May 12:20 - CONCLUSION: Negative CTA of the carotids without local luminal narrowing or dissection. Marco A Luong MD Head CTA 06/21/17 1209 Signed Impressions: Service Date/Time: May 12:20 - CONCLUSION: Nonocclusive finding in the basilar artery with differential considerations as above. Andrew Lewis MD Head CT 06/21/17 0000 Signed Impressions: Service Date/Time: May 12:06 - CONCLUSION: 1. Encephalomalacic infarct involving the medial left occipital cortex. 2. Previous suboccipital craniotomy for Chiari malformation. 3. The left occipital cortex is new compared to previous CT dated 05/16/17. Giovanni Stapleton MD (Amando Bill MD R1) Septic Shock Reassessment Septic shock perfusion: reassessment completed (Amando Bill MD R1) Caprini VTE Risk Assessment Caprini VTE Risk Assessment: Mod/High Risk (score >= 2) (Amando Bill MD R1) Assessment and Plan Assessment and Plan 61YO female with PMHx CVA in April 2017, syringomyelia, DM, HTN, HLD presents with stroke alert and CT showing encephalomalacic infarct of left occipital cortex which is new compared to imaging in April. Dr Ibarra, neurology, indicates there is a clot in the basilar artery likely 2/2 occult afib as the causative agent. Code Status Full code Discussed Condition With Dr Rincon (Amando Bill MD R1) Attending Attestation THIS CASE WAS DISCUSSED WITH THE RESIDENT PHYSICIANS. I HAVE REVIEWED THE RECORD AND AGREE WITH THE ABOVE NOTE AND PLAN OF CARE WAS DISCUSSED. I HAVE AUTHORIZED THE ORDER FOR ADMISSION TO AN IN-PATIENT STATUS. (Jasmin Leiva MD) Problem List: (1) CVA (cerebral vascular accident) ICD Codes: I63.9 - Cerebral infarction, unspecified Status: Acute Plan: -Neurology consulted and stroke alert called--following recs -Stop Plavix -Start Coumadin -ASA 325mg -Consult Cardiology for loop recorder -Keep HOB flat -NS IVF 100ml/hr -Nursing bedside swallow eval; if passes, will give diet -Neuro checks -Fall precautions (2) Right hemiparesis ICD Codes: G81.91 - Hemiplegia, unspecified affecting right dominant side Status: Acute Plan: Plan as above; pt weakness much reduced since this morning; 4/5 strength in RUE and RLE with mild contracture of fingers and impairment of fine motor; normal sensation (3) Hypertension ICD Codes: I10 - Hypertension Status: Acute Plan: Hold losartan 50 mg daily to allow for permissive HTN -Consider restart if SBP >200 OR DBP >100 (4) Hypothyroid ICD Codes: E03.9 - Hypothyroidism, unspecified Status: Chronic Plan: Continue home dose Levothyroxine 75 mcg PO daily (5) Chronic myofascial pain ICD Codes: M79.1 - Myalgia; G89.29 - Other chronic pain Status: Chronic Plan: Hold xanaflex Continue tramadol (6) Anxiety ICD Codes: F41.9 - Anxiety disorder, unspecified Plan: Pt previously was on xanax but told she could no longer take it -Start Lexapro 10mg PO daily (7) FEN/GI/PPx Status: Acute Plan: Fluids: NS IVF @ 100ml/hr Electrolytes: wnl, will replete, and monitor BMP daily Nutrition: nursing bedside swallow eval; if ok, will give diet GI: not indicated PPx: Per neurology, coumadin 5mg PO daily and heparin Tylenol 650mg PO q6h for fever; pain 1-3 Jayde-colace 1 tab PO BID Bowel regimen PRN Zofran 4mg IV q6h IV nausea Pain: tramadol 50mg PO q6h pain 4-10 Sleep: Zolpidem 5mg PO qhs (Amando Bill MD R1) Physician Certification 2 Midnight Certification Type: Admission for Inpatient Services Order for Inpatient Services The services are ordered in accordance with Medicare regulations or non- Medicare payer requirements, as applicable. In the case of services not specified as inpatient-only, they are appropriately provided as inpatient services in accordance with the 2-midnight benchmark. Estimated LOS (days): 3 days is the estimated time the patient will need to remain in the hospital, assuming treatment plan goals are met and no additional complications. Post-Hospital Plan: Home (Amando Bill MD R1) 2 Midnight Certification Type: Admission for Inpatient Services Post-Hospital Plan: Home (Jasmin Leiva MD) Problem Qualifiers (1) CVA (cerebral vascular accident): Qualified Codes: I63.22 - Cerebral infarction due to unspecified occlusion or stenosis of basilar artery (2) Hypertension: Qualified Codes: I10 - Essential (primary) hypertension Amando Bill MD R1 Jun 21, 2017 18:21 Jasmin Leiva MD Jun 22, 2017 15:27
[2017-06-21] MEDS: WARFARIN SOD 5 MG TAB PO SCH (18:57)
[2017-06-21] MEDS: SODIUM CHLORIDE 0.9% FLUSH 10 ML FLUSH IV FLUSH SCH (21:00)
[2017-06-21] MEDS: ATORVASTATIN 40 MG TAB PO SCH (21:11)
[2017-06-21] MEDS: DOCUSATE SODIUM 50 MG/SENNA 8.6 MG TAB PO SCH (21:11)
[2017-06-22] VITALS (13 sets, daily range): BP systolic 123–166; BP diastolic 70–91; PULSE 21–80; RESP 12–18; TEMP 97.9–99.2; O2SAT 93–100
[2017-06-22] MEDS: HEPARIN-D5W 25,000 U/250 ML 250 ML IV PRN ×2 (03:08→22:19)
[2017-06-22 03:40] LABS: AUTOMATED NEUTROPHIL # 3.2 TH/MM3 (1.8-7.7); BASOPHIL % 0.5 % (0.0-2.0); EOSINOPHIL # 0.1 TH/MM3 (0-0.4); EOSINOPHIL % 1.4 % (0.0-4.0); HEMATOCRIT 41.1 % (35.0-46.0); HEMOGLOBIN 14.2 GM/DL (11.6-15.3); LYMPH % 31.8 % (9.0-44.0); LYMPHOCYTE # 1.7 TH/MM3 (1.0-4.8); MEAN CELL VOLUME 94.8 FL (80.0-100.0); MEAN CORPUSCULAR HEMOGLOBIN 32.7 PG (27.0-34.0); MEAN CORPUSCULAR HGB CONC 34.5 % (32.0-36.0); MEAN PLATELET VOLUME 6.9 FL (7.0-11.0); MONOCYTE # 0.4 TH/MM3 (0-0.9); NEUT % 58.3 % (16.0-70.0); PLATELET COUNT 255 TH/MM3 (150-450); RED BLOOD COUNT 4.34 MIL/MM3 (4.00-5.30); RED CELL DISTRIBUTION WIDTH 13.4 % (11.6-17.2); WHITE BLOOD COUNT 5.5 TH/MM3 (4.0-11.0)
[2017-06-22 03:48] LABS: ALBUMIN 2.9 GM/DL (3.4-5.0); ALT (GPT) 28 U/L (10-53); AST (GOT) 17 U/L (15-37); BICARBONATE 26.8 MEQ/L (21.0-32.0); BLOOD UREA NITROGEN 10 MG/DL (7-18); CALCIUM 8.2 MG/DL (8.5-10.1); CHLORIDE 113 MEQ/L (98-107); CREATININE 0.52 MG/DL (0.50-1.00); GLOMERULAR FILTRATION RATE 120 ML/MIN (>89); GLUCOSE,RANDOM 86 MG/DL (74-106); INTERNATIONAL NORMALIZED RATIO 1.1 RATIO; PROTHROMBIN TIME - PATIENT 11.1 SEC (9.8-11.6); SODIUM (NA) 146 MEQ/L (136-145)
[2017-06-22 03:50] LABS: ALKALINE PHOSPHATASE 82 U/L (45-117); TOTAL BILIRUBIN ADULT 0.4 MG/DL (0.2-1.0)
[2017-06-22] MEDS: LEVOTHYROXINE SODIUM 75 MCG TAB PO SCH (05:41)
--- NOTE | 2017-06-22 08:12 | HHI.PR ---
Subjective Remarks sr Objective Vital Signs Date Time Temp Pulse Resp B/P (MAP) Pulse Ox O2 Delivery O2 Flow Rate FiO2 06/22/17 06:00 75 06/22/17 04:00 98.4 70 14 135/70 (91) 93 06/22/17 04:00 70 06/22/17 02:00 73 06/22/17 00:00 59 06/22/17 00:00 97.9 59 12 158/91 (113) 96 06/21/17 22:00 87 06/21/17 20:00 71 06/21/17 20:00 96 Room Air 06/21/17 20:00 98.1 78 24 129/71 (90) 96 06/21/17 18:00 75 06/21/17 16:00 98.2 70 27 127/79 (95) 98 06/21/17 16:00 99 Nasal Cannula 2.00 06/21/17 16:00 70 06/21/17 15:08 06/21/17 14:33 71 14 142/66 (91) 99 Nasal Cannula 2.00 06/21/17 13:43 68 16 161/82 (108) 99 Nasal Cannula 2.00 06/21/17 13:34 68 14 130/63 (85) 99 Nasal Cannula 2.00 06/21/17 13:08 71 16 189/81 (117) 99 Nasal Cannula 2.00 06/21/17 13:03 97 Nasal Cannula 2.00 06/21/17 13:03 100 Nasal Cannula 2.00 06/21/17 12:34 98.0 65 16 157/80 (105) 98 06/21/17 12:02 99 2.00 06/21/17 12:02 99 Nasal Cannula 2.00 06/21/17 12:00 65 14 160/95 (116) 99 Nasal Cannula 2.00 I/O 06/21/17 06/21/17 06/21/17 06/22/17 06/22/17 06/22/17 07:00 15:00 23:00 07:00 15:00 23:00 Intake Total 440 ml 1490 ml Output Total 500 ml 1450 ml Balance -60 ml 40 ml Intake Oral 240 ml 240 ml IV Total 200 ml 1250 ml Output Urine Total 500 ml 1450 ml # Bowel Movements 1 Result Diagram: 06/22/17 0300 06/22/17 0300 Objective Remarks vff face sym awake alert moving r side nl x old finding left same as prior also Assessment and Plan Assessment and Plan imp mri no cva clot in basilar on hep and coumadin keep hob down bp up '' repeat mra cow and see if still there improved neuro Ben Ibarra MD Jun 22, 2017 08:12
--- NOTE | 2017-06-22 08:36 | PD.CONS ---
HPI Consult Requested By Primary Care Physician Unknown History of Present Illness 61-year-old female with recent CVAs, HTN, HLD, hypothyroidism, anxiety who presented with recurrent right-sided weakness and new gait unsteadiness. The patient had an admission last month where she was found have a large CVA and 2 smaller CVAs. Went to [facility]. 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 Right-sided weakness and speech difficulties are improving today. Neurology has consulted us regarding ruling out cardioembolic source of CVA. No atrial fibrillation has been found. The patient states that she had a Holter monitor last month that was reportedly normal. She had an echocardiogram last month that was unremarkable as well. She denies any prior history of heart disease. Never smoker. She denies any chest pain, shortness breath, or palpitations. (Stiven Nevarez) Review of Systems Negative except as stated in the history of present illness (Stiven Nevarez) Past Family Social History Allergies: Coded Allergies: No Known Allergies (Unverified Adverse Reaction, Unknown, 06/21/17) Past Medical History preDM (on steroids) 01/12 osteopenia 2013 (Pt s/p fosamax weekly estim 2003- 2008), now on bisphosphanate holiday Chronic myofascial and neuropathic pain with neuropathy Chiari malformation with syringomyelia Hyperlipidemia Hypertension Seasonal allergies menopause 2006 Hypothyroid 1989 desensitization shots 1980s Right wrist fracture 2008 Left clavicle fracture age 4 Right leg fracture age 12 Head injury with concussion 2000 Past Surgical History Lap Appy 03/14, benign pathology Right wrist 2007 Suboccipital craniectomy, laminectomy C1-C4, myelotomy C4, with insertion of Silastic T-tube for drainage of syrinx into subarachnoid space September 1989 Reported Medications Reported Meds & Active Scripts Active Xanax (Alprazolam) 0.25 Mg Tab 0.25 Mg PO Q12HR Ultram (Tramadol HCl) 50 Mg Tab 50 Mg PO Q6H PRN Synthroid (Levothyroxine Sodium) 75 Mcg Tab 75 Mcg PO DAILY@0600 30 Days Cozaar (Losartan Potassium) 50 Mg Tab 25 Mg PO BID@0600,1800 30 Days Zanaflex (Tizanidine HCl) 4 Mg Tab 4 Mg PO BID 30 Days Plavix (Clopidogrel Bisulfate) 75 Mg Tab 75 Mg PO DAILY Boniva (Ibandronate Sodium) 150 Mg Tab 150 Mg PO Q28D 90 Days Lipitor (Atorvastatin Calcium) 40 Mg Tab 40 Mg PO HS Sm Vitamin E (Vitamin E) 400 Unit Cap 400 Units PO DAILY 30 Days Oyster Shell 250 mg + Vit D Tb (Calcium/Vitamin D) 250 Mg Calcium (625 Mg)-125 Unit Tablet 250 Mg PO Q12HR 30 Days Eq Acetaminophen (Acetaminophen) 325 Mg Tab 650 Mg PO Q4H PRN 30 Days Wheelchair 1 Each Each Each Px Aspirin (Aspirin) 325 Mg Tab 325 Mg PO DAILY Reported Vitamin E (Vitamin E Acetate) 400 Unit Capsule 400 Units PO DAILY Calcium 500 +D (Calcium Carbonate-Cholecalciferol) 500-400 Mg-Unit Tab 1 Tab PO BID Active Ordered Medications Current Medications Medications (Trade) Dose Ordered Sig/Rob Route Start Time Stop Time Status Last Admin Heparin Sodium/ Dextrose 250 ml @ 12 mls/hr TITRATE PRN IV 06/21/17 12:45 06/22/17 03:08 Sodium Chloride 1,000 ml @ 100 mls/hr Q10H IV 06/21/17 12:54 06/21/17 23:38 (Coumadin) 5 mg DAILY@1600 PO 06/21/17 16:00 06/21/17 18:57 Miscellaneous Information ALL NURSING DEPARTME... UNSCH PRN OTHER 06/21/17 16:00 06/22/17 15:59 (NS Flush) 2 ml UNSCH PRN IV FLUSH 06/21/17 17:00 (NS Flush) 2 ml BID IV FLUSH 06/21/17 21:00 (Tylenol) 650 mg Q4H PRN PO 06/21/17 17:00 (Zofran Inj) 4 mg Q6H PRN IVP 06/21/17 17:00 (Ambien) 5 mg HS PRN PO 06/21/17 17:00 (Narcan Inj) 0.4 mg UNSCH PRN IV PUSH 06/21/17 17:00 (Jayde-Colace) 1 tab BID PO 06/21/17 21:00 06/21/17 21:11 (Milk Of Magnesia Liq) 30 ml Q12H PRN PO 06/21/17 17:00 (Senokot) 17.2 mg Q12H PRN PO 06/21/17 17:00 (Dulcolax Supp) 10 mg DAILY PRN RECTAL 06/21/17 17:00 (Lactulose Liq) 30 ml DAILY PRN PO 06/21/17 17:00 (Lexapro) 10 mg DAILY PO 06/22/17 09:00 (Tylenol) 650 mg Q4H PRN PO 06/21/17 18:15 06/21/17 21:12 (Aspirin) 325 mg DAILY PO 06/22/17 09:00 (Lipitor) 40 mg HS PO 06/21/17 21:00 06/21/17 21:11 (Synthroid) 75 mcg DAILY@0600 PO 06/22/17 06:00 06/22/17 05:41 (Ultram) 50 mg Q6H PRN PO 06/21/17 18:15 Family History Dad age 59 [place], history tobacco and alcohol Mom age 69 complications of colon cancer diagnosed in her mid 60s, also had rheumatoid arthritis Siblings with hyperlipidemia otherwise alive and well. Social History ,no natural children, spouse diagnosed with Hep B/ liver transplant has stepdaughter that she helped raise from age 9, and 2 grandchildren. 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[employer], and real estate consultant (Stiven Nevarez) Physical Exam Vital Signs Vital Signs Date Time Temp Pulse Resp B/P (MAP) Pulse Ox O2 Delivery O2 Flow Rate FiO2 06/22/17 06:00 75 06/22/17 04:00 98.4 70 14 135/70 (91) 93 06/22/17 04:00 70 06/22/17 02:00 73 06/22/17 00:00 59 06/22/17 00:00 97.9 59 12 158/91 (113) 96 06/21/17 22:00 87 06/21/17 20:00 71 06/21/17 20:00 96 Room Air 06/21/17 20:00 98.1 78 24 129/71 (90) 96 06/21/17 18:00 75 06/21/17 16:00 98.2 70 27 127/79 (95) 98 06/21/17 16:00 99 Nasal Cannula 2.00 06/21/17 16:00 70 06/21/17 15:08 2/22/18 14:33 71 14 142/66 (91) 99 Nasal Cannula 2.00 06/21/17 13:43 68 16 161/82 (108) 99 Nasal Cannula 2.00 06/21/17 13:34 68 14 130/63 (85) 99 Nasal Cannula 2.00 06/21/17 13:08 71 16 189/81 (117) 99 Nasal Cannula 2.00 06/21/17 13:03 97 Nasal Cannula 2.00 06/21/17 13:03 100 Nasal Cannula 2.00 06/21/17 12:34 98.0 65 16 157/80 (105) 98 06/21/17 12:02 99 2.00 06/21/17 12:02 99 Nasal Cannula 2.00 06/21/17 12:00 65 14 160/95 (116) 99 Nasal Cannula 2.00 Physical Exam GENERAL: Well-developed well-nourished. In no acute distress. NECK: No carotid bruits. No JVD. CARDIOVASCULAR: Regular rate and rhythm. No murmur appreciated. RESPIRATORY: No accessory muscle use. Clear to auscultation. Breath sounds equal bilaterally. MUSCULOSKELETAL: No clubbing or cyanosis. No edema. NEUROLOGICAL: Awake and alert. Normal speech. Left sided weakness. Laboratory Laboratory Tests Test 06/21/17 12:00 06/21/17 12:39 06/21/17 12:52 06/21/17 13:20 Bedside Hemoglobin 11.6 Bedside Hematocrit 34.0 Bedside Sodium 142 Bedside Potassium 4.9 Bedside Chloride 110 Bedside Blood Urea Nitrogen 16 Bedside Creatinine 0.5 Bedside Glucose 111 Total Creatine Kinase 135 Troponin I LESS THAN 0.02 Erythrocyte Sedimentation Rate 5 White Blood Count 7.2 Red Blood Count 3.95 Hemoglobin 13.0 Hematocrit 38.1 Mean Corpuscular Volume 96.5 Mean Corpuscular Hemoglobin 32.9 Mean Corpuscular Hemoglobin Concent 34.1 Red Cell Distribution Width 13.9 Platelet Count 216 Mean Platelet Volume 6.8 Neutrophils (%) (Auto) 84.7 Lymphocytes (%) (Auto) 10.5 Monocytes (%) (Auto) 4.1 Eosinophils (%) (Auto) 0.4 Basophils (%) (Auto) 0.3 Neutrophils # (Auto) 6.1 Lymphocytes # (Auto) 0.8 Monocytes # (Auto) 0.3 Eosinophils # (Auto) 0.0 Basophils # (Auto) 0.0 CBC Comment DIFF FINAL Differential Comment Prothrombin Time 10.7 Prothromb Time International Ratio 1.1 Activated Partial Thromboplast Time 20.9 Fibrinogen 248 Vitamin B12 Level 429 Urine Color LIGHT-YELLOW Urine Turbidity CLEAR Urine pH 6.5 Urine Specific Cornell 1.019 Urine Protein NEG Urine Glucose (UA) NEG Urine Ketones NEG Urine Occult Blood NEG Urine Nitrite NEG Urine Bilirubin NEG Urine Urobilinogen LESS THAN 2.0 Urine Leukocyte Esterase NEG Urine RBC 1 Urine WBC 1 Urine Squamous Epithelial Cells <1 Urine Opiates Screen NEG Urine Barbiturates Screen NEG Urine Amphetamines Screen NEG Urine Benzodiazepines Screen POS Urine Cocaine Screen NEG Urine Cannabinoids Screen NEG Test 06/21/17 21:15 06/22/17 03:00 06/22/17 03:53 Activated Partial Thromboplast Time 63.2 80.2 White Blood Count 5.5 Red Blood Count 4.34 Hemoglobin 14.2 Hematocrit 41.1 Mean Corpuscular Volume 94.8 Mean Corpuscular Hemoglobin 32.7 Mean Corpuscular Hemoglobin Concent 34.5 Red Cell Distribution Width 13.4 Platelet Count 255 Mean Platelet Volume 6.9 Neutrophils (%) (Auto) 58.3 Lymphocytes (%) (Auto) 31.8 Monocytes (%) (Auto) 8.0 Eosinophils (%) (Auto) 1.4 Basophils (%) (Auto) 0.5 Neutrophils # (Auto) 3.2 Lymphocytes # (Auto) 1.7 Monocytes # (Auto) 0.4 Eosinophils # (Auto) 0.1 Basophils # (Auto) 0.0 CBC Comment DIFF FINAL Differential Comment Prothrombin Time 11.1 Prothromb Time International Ratio 1.1 Blood Urea Nitrogen 10 Creatinine 0.52 Random Glucose 86 Total Protein 6.0 Albumin 2.9 Calcium Level 8.2 Alkaline Phosphatase 82 Aspartate Amino Transf (AST/SGOT) 17 Alanine Aminotransferase (ALT/SGPT) 28 Total Bilirubin 0.4 Sodium Level 146 Potassium Level 3.7 Chloride Level 113 Carbon Dioxide Level 26.8 Anion Gap 6 Estimat Glomerular Filtration Rate 120 (Stiven Nevarez) Result Diagram: 06/22/17 0300 06/22/17 0300 Imaging Last Impressions Brain MRI 06/21/17 1254 Signed Impressions: Service Date/Time: May 15:05 - CONCLUSION: No acute intracranial findings Andrew Lewis MD Neck CTA 06/21/17 1209 Signed Impressions: Service Date/Time: May 12:20 - CONCLUSION: Negative CTA of the carotids without local luminal narrowing or dissection. Marco A Luong MD Head CTA 06/21/17 1209 Signed Impressions: Service Date/Time: May 12:20 - CONCLUSION: Nonocclusive finding in the basilar artery with differential considerations as above. Andrew Lewis MD Head CT 06/21/17 0000 Signed Impressions: Service Date/Time: May 12:06 - CONCLUSION: 1. Encephalomalacic infarct involving the medial left occipital cortex. 2. Previous suboccipital craniotomy for Chiari malformation. 3. The left occipital cortex is new compared to previous CT dated 05/16/17. Giovanni Stapleton MD (Stiven Nevraez) Assessment and Plan Assessment and Plan 61-year-old female with recent CVAs, HTN, HLD, hypothyroidism, anxiety who presented with recurrent right-sided weakness and new gait unsteadiness. The patient had an admission last month where she was found have a large CVA and 2 smaller CVAs. 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 Right-sided weakness and speech difficulties are improving today. Neurology has consulted us regarding ruling out cardioembolic source of CVA. No atrial fibrillation has been found. The patient states that she had a Holter monitor last month that was reportedly normal. She had an echocardiogram last month that was unremarkable as well. CVA with right-sided deficits: Multiple CVAs last month and now with recurrence of symptoms. We'll need to rule out cardioembolic etiology. We'll plan for SOCO today. Continue telemetry monitoring. (Stiven Nevarez) Assessment and Plan SOCO - normal EF. mild valve dz. no SHAHNAZ thrombus. No PFO. No cardiac source. outpatient event monitor x 30 days vs implantable loop recorder next week, if still inpatient. will sign off call with further questions. I can coordinate loop recorder next week if needed , I do not place them. (Timmy Avilez MD) Stiven Nevarez Jun 22, 2017 08:36 Timmy Avilez MD Jun 22, 2017 13:12
[2017-06-22] MEDS: SODIUM CHLOR 0.9% 1000 ML INJ 1,000 ML IV SCH ×3 (08:54→21:44)
[2017-06-22] MEDS ORDERED: ASPIRIN 325 MG TAB PO SCH (09:00)
[2017-06-22] MEDS: SODIUM CHLORIDE 0.9% FLUSH 10 ML FLUSH IV FLUSH SCH ×2 (09:00→21:00)
--- NOTE | 2017-06-22 12:21 | RADRPT ---
EXAM DATE/TIME: 06/22/2017 09:49 [facility] COMPARISON: CTA BRAIN W 3D RECON, May 09, 2017, 12:08. MRI BRAIN W/O CONTRAST, May 09, 2017, 20:30. MRI BRAIN W & W/O CONTRAST, June 21, 2017, 15:05. CTA BRAIN W 3D RECON, June 21, 2017, 12:20. INDICATIONS : Slurred speech. Right sided weakness. MEDICAL HISTORY : Hypertension. SURGICAL HISTORY : Appendectomy. wrist sx ENCOUNTER: Subsequent ACUITY: 2 day PAIN SCORE: 0/10 LOCATION: cranial Please note a normal MRA of the brain does not entirely exclude the possibility of a small aneurysm, nor the possibility of distal intracranial vessel disease. TECHNIQUE: 3D time of flight MRA was performed. Source images, multiplanar STS MIP, and 3D volume MIP reconstru ctions were reviewed. FINDINGS: There is excellent visualization of the major intracranial arteries out to the second-order branch ve ssels. There is no evidence for aneurysm, vessel truncation or stenosis, and no evidence for vascula r malformation. Flow is seen in the anterior communicating artery. No flow is seen in either PCOM. Special attention is directed to the basilar artery and there is a thin area of absent flow in the aysha men posterior lateral, compromising less than one fourth the diameter of the vessel. This extends fr om the left vertebral/basilar origin up to, but not including, the basilar tip. The basilar tip has a normal configuration. Defect in the basilar artery is identical in configuration to the findings s een on CTA. CONCLUSION: MRA demonstrates an elongated small area of absent flow in the posterolateral aspect of the basilar a rtery, similar to the defect seen on CTA. This does not restrict flow and there is a normal pattern of flow in the posterior cerebral and superior cerebellar vessels. A differential considerations inc lude clot and eccentric atheroma. Marco A Luong MD on June 22, 2017 at 12:12 Board Certified Radiologist. This report was verified electronically.
--- NOTE | 2017-06-22 12:59 | HHI.CCPN ---
Subjective Remarks/Hospital Course 61 y/o right handed woman developed sudden speech difficulty and +/- right side weakness. By the time I saw here in the [facility] her speech was normal. Normotensive , sinus rhythm. She has been on dual antiplatelet therapy since her initial stroke 5 weeks ago. 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 She has been extensively evaluated by Dr. Ibarra. 06/22: Looks like atheromatous disease in posterior circulation. Continue full anticoagulation. She may require low dose neosynephrine gtt if SBP drifts below 130s. Objective Vital Signs Date Time Temp Pulse Resp B/P (MAP) Pulse Ox O2 Delivery O2 Flow Rate FiO2 06/22/17 08:41 100 06/22/17 06:00 75 06/22/17 04:00 98.4 14 135/70 (91) 06/21/17 20:00 Room Air 06/21/17 16:00 2.00 Intake and Output 06/22/17 06/22/17 06/23/17 08:00 16:00 00:00 Intake Total 1490 ml Output Total 1450 ml Balance 40 ml Result Diagram: 06/22/17 0300 06/22/17 0300 Objective Remarks Head: Atraumatic. Neck: Supple, airway widely patent. Lungs: Clear. Heart: NL S1S2, RRR. No JVD. Abdomen: Benign, soft. Neuro: Speech clear. Moves 4 limbs to command. O X 3, conversant. A/P Assessment and Plan Assessment: 1. Acute ischemic stroke. Plan: 1. Full anticoagulation with heparin. 2. F/U Head CT. 3. Pepcid. 4. PT, OT evaluation. 5. Acute CVA protocol. 6. Neosynephrine gtt to keep SBP > 130. Overall impression: Cleared speech remains. Protects airway well, normotensive. Phani Allan MD Jun 22, 2017 12:59
[2017-06-22] MEDS ORDERED: TERBUTALINE INJ 1 MG/ML AMP SQ PRN (13:00)
[2017-06-22] MEDS ORDERED: PHENYLEPHRINE INJ 80 MG in SODIUM CHLORID 0.9% 500 ML INJ 492 ML IV PRN (13:00)
--- NOTE | 2017-06-22 13:46 | EKG ---
Date Performed: 06/21/2017 Time Performed: 11:56:32 PTAGE: 61 years EKG: Sinus rhythm WITH OCCASIONAL SUPRAVENTRICULAR PREMATURE COMPLEXES BORDERLINE ECG PREVIOUS TRACING : 05/09/[address] elevation, which likely represents repolariz ation change. Clinical correlation is advised. Since the prior tracing, there has been no significant serial change. DOCTOR: Niru Marie Interpretating Date/Time 06/22/2017 13:45:08
[2017-06-22] MEDS: ESCITALOPRAM OXALATE 10 MG TAB PO SCH (13:52)
[2017-06-22] MEDS: DOCUSATE SODIUM 50 MG/SENNA 8.6 MG TAB PO SCH ×2 (13:52→21:00)
[2017-06-22] MEDS ORDERED: ENOX40P SQ (14:08)
[2017-06-22] MEDS ORDERED: ESCI10TA PO (14:08)
[2017-06-22] MEDS ORDERED: COUM5TAB PO (14:08)
--- NOTE | 2017-06-22 14:10 | HHI.FF ---
Face to Face Verification Diagnosis: (1) Neurologic deficit due to acute ischemic cerebrovascular accident (CVA) Physical Therapy Order: Evaluate and Treat, Improve ambulation, Strength and gait training Occupational Therapy Order: Evaluate and Treat, Improve ADL, Gross motor coordination, Fine motor coordination Home Health Nursing Order: Medical education Signs/symptoms of disease process Medication education-adverse effect Nursing assessment with vital signs I have seen patient Maricel Stoddard on 06/22/17. My clinical findings support the need for the requested home health care services because: Ltd mobility - disease progression Limited ability to care for self High risk of falls Injectable med education/admin I certify that my clinical findings support that this patient is homebound because: Unsteady gait/balance Unsafe to leave home unassisted Rajan Dubois MD, R3 Jun 22, 2017 14:10
--- NOTE | 2017-06-22 14:22 | HHI.FPPN ---
Subjective Remarks Ms Stoddard had no acute events overnight. She just returned from [facility] when we saw her. She is awake, alert and oriented and needs to go to the bathroom. She was able to ambulate to the bathroom this morning before the [facility], able to speak clearly and would like to go home with home health PT/OT/ST. She would like to go home as soon as possible. Denies CP, SOB, N/V/D, and dizziness. (Amando Bill MD R1) Objective Vitals Vital Signs Date Time Temp Pulse Resp B/P (MAP) Pulse Ox O2 Delivery O2 Flow Rate FiO2 06/22/17 08:41 100 06/22/17 07:00 Room Air 06/22/17 06:00 75 06/22/17 04:00 98.4 70 14 135/70 (91) 93 06/22/17 04:00 70 06/22/17 02:00 73 06/22/17 00:00 59 06/22/17 00:00 97.9 59 12 158/91 (113) 96 06/21/17 22:00 87 06/21/17 20:00 71 06/21/17 20:00 96 Room Air 06/21/17 20:00 98.1 78 24 129/71 (90) 96 06/21/17 18:00 75 06/21/17 16:00 98.2 70 27 127/79 (95) 98 06/21/17 16:00 99 Nasal Cannula 2.00 06/21/17 16:00 70 06/21/17 15:08 06/21/17 14:33 71 14 142/66 (91) 99 Nasal Cannula 2.00 I/O 06/21/17 06/21/17 06/21/17 06/22/17 06/22/17 06/22/17 07:00 15:00 23:00 07:00 15:00 23:00 Intake Total 440 ml 1490 ml Output Total 500 ml 1450 ml Balance -60 ml 40 ml Intake Oral 240 ml 240 ml IV Total 200 ml 1250 ml Output Urine Total 500 ml 1450 ml # Bowel Movements 1 (Amando Bill MD R1) Result Diagram: 06/22/17 0300 06/22/17 0300 Imaging Last 24 hours Impressions Head Magnetic Resonance Angiography 06/22/17 0000 Signed Impressions: Service Date/Time: Thursday, June 22, 2017 09:49 - CONCLUSION: MRA demonstrates an elongated small area of absent flow in the posterolateral aspect of the basilar artery, similar to the defect seen on CTA. This does not restrict flow and there is a normal pattern of flow in the posterior cerebral and superior cerebellar vessels. A differential considerations include clot and eccentric atheroma. Marco A Luong MD Objective Remarks GENERAL: This is a well-nourished, well-developed middle-aged female lying in bed in [facility]. SKIN: No rashes, ecchymoses or lesions. Cool and dry. HEAD: Atraumatic. Normocephalic. No temporal tenderness. EYES: PERRLA/EOMI. No scleral icterus. No injection or drainage. ENT: Nose without drainage. Throat without erythema. Uvula midline. Airway patent. NECK: Trachea midline. No JVD or lymphadenopathy. Supple, nontender, no meningeal signs. CARDIOVASCULAR: Regular rate and rhythm without murmurs, gallops, or rubs. RESPIRATORY: Clear to auscultation. Breath sounds equal bilaterally. No wheezes , rales, or rhonchi. GASTROINTESTINAL: Abdomen soft, non-tender, nondistended. MUSCULOSKELETAL: Extremities without clubbing or cyanosis; mild edema over lateral malleolus of right ankle. No calf tenderness. LLE 4/5, RLE 4/5 strength ; RUE 4/5 and LUE 4/5 strength. NEUROLOGICAL: Awake, alert and oriented x3. Cranial nerves II through XII intact. Normal speech. Mild contracture of bilateral hand PIPs 2-5 (chronic) Medications and IVs Current Medications Medications (Trade) Dose Ordered Sig/Rob Route Start Time Stop Time Status Last Admin Heparin Sodium/ Dextrose 250 ml @ 12 mls/hr TITRATE PRN IV 06/21/17 12:45 06/22/17 03:08 Sodium Chloride 1,000 ml @ 100 mls/hr Q10H IV 06/21/17 12:54 06/22/17 08:54 (Coumadin) 5 mg DAILY@1600 PO 06/21/17 16:00 06/21/17 18:57 Miscellaneous Information ALL NURSING DEPARTME... UNSCH PRN OTHER 06/21/17 16:00 06/22/17 15:59 (NS Flush) 2 ml UNSCH PRN IV FLUSH 06/21/17 17:00 (NS Flush) 2 ml BID IV FLUSH 06/21/17 21:00 06/22/17 09:00 (Tylenol) 650 mg Q4H PRN PO 06/21/17 17:00 (Zofran Inj) 4 mg Q6H PRN IVP 06/21/17 17:00 (Ambien) 5 mg HS PRN PO 06/21/17 17:00 (Narcan Inj) 0.4 mg UNSCH PRN IV PUSH 06/21/17 17:00 (Jayde-Colace) 1 tab BID PO 06/21/17 21:00 06/22/17 13:52 (Milk Of Magnesia Liq) 30 ml Q12H PRN PO 06/21/17 17:00 (Senokot) 17.2 mg Q12H PRN PO 06/21/17 17:00 (Dulcolax Supp) 10 mg DAILY PRN RECTAL 06/21/17 17:00 (Lactulose Liq) 30 ml DAILY PRN PO 06/21/17 17:00 (Lexapro) 10 mg DAILY PO 06/22/17 09:00 06/22/17 13:52 (Tylenol) 650 mg Q4H PRN PO 06/21/17 18:15 06/21/17 21:12 (Aspirin) 325 mg DAILY PO 06/22/17 09:00 06/22/17 13:52 (Lipitor) 40 mg HS PO 06/21/17 21:00 06/21/17 21:11 (Synthroid) 75 mcg DAILY@0600 PO 06/22/17 06:00 06/22/17 05:41 (Ultram) 50 mg Q6H PRN PO 06/21/17 18:15 Phenylephrine HCl 80 mg/Sodium Chloride 500 ml @ 15 mls/hr TITRATE PRN IV 06/22/17 13:00 (Brethine Inj) 1 mg UNSCH PRN SQ 06/22/17 13:00 (Amando Bill MD R1) Urinary Catheter: No (Amando Bill MD R1) A/P Assessment and Plan 61YO female with PMHx CVA in April 2017, syringomyelia, DM, HTN, HLD presents with stroke alert and imaging showing 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 Dr Ibarra, neurology, Dr Allan, treatment technician, and Cardiology consulted. ECHO pending. Seen and discussed with Adriana Woody and Emmy Dubois. Discharge Planning [facility] will allow her to go tomorrow; Plan HHF2F order for HH PT/OT/ST; will bridge lovenox to coumadin for anticoagulation. Discharge 1-2 days (Amando Bill MD R1) Attending Attestation Patient seen and examined. Case reviewed and discussed with the resident team. Agree with plan of care as discussed with me and documented in the resident note. Patient neurologically has returned to baseline -- she is very anxious to leave the hospital as she was just in the hospital followed by rehab a few weeks ago. EXAM -- cards -- rrr, no murmurs Lungs - clear Legs bilateral strength equal, left arm and special needs babysitter Strength somewhat weak but patient reports at baseline. CVA -- agree with Coumadin -- patient does not want to stay until therapeutic, [facility] was normal and workup thus far was normal. DWPT options and she would like to go home [facility] with HH for assistance. She is a pretty reliable patient and dw her the risk with sub therapeutic INR -- she is agreeable to use Lovenox bridge and as she is my private clinic patient I will be able to closely follow this for her. If she remains stable overnight -then potential dc to home in the morning. Residents will work with case management to assist with this. (Jasmin Leiva MD) Problem List: (1) CVA (cerebral vascular accident) ICD Codes: I63.9 - Cerebral infarction, unspecified Status: Acute Plan: MRA this morning showing basilar artery atheroma vs non-occluding clot; pt stable with most functionality restored (feels like she is 80-90% back to baseline); able to ambulate, speak normally. -Neurology consulted and stroke alert called 06/21--following recs -Stop Plavix -Continue Coumadin--INR 1.1 today; AM dose held for [facility], getting this afternoon -ASA 325mg -Consult Cardiology for [facility], loop recorder -Keep HOB flat -NS IVF 100ml/hr -Bedside swallow eval; if passes, will give diet -Neuro checks -Fall precautions -PT/OT/ST -Planning HHF2F with PT/OT/ST as outpt as well as warfarin to Lovenox bridge - given scripts to fill prior to DC (2) Right hemiparesis ICD Codes: G81.91 - Hemiplegia, unspecified affecting right dominant side Status: Acute Plan: Plan as above; pt states she is back to 80-90% of baseline strength/ ability--was able to ambulate to the bathroom today; 4/5 strength in RUE and RLE with mild contracture of fingers and impairment of fine motor; normal sensation (3) Hypertension ICD Codes: I10 - Hypertension Status: Acute Plan: Hold losartan 50 mg daily to allow for permissive HTN -Consider restart if SBP >200 OR DBP >100 -News Videotape Editor will trial neosynephrine to keep SBP > 130 (4) Hypothyroid ICD Codes: E03.9 - Hypothyroidism, unspecified Status: Chronic Plan: Continue home dose Levothyroxine 75 mcg PO daily (5) Chronic myofascial pain ICD Codes: M79.1 - Myalgia; G89.29 - Other chronic pain Status: Chronic Plan: -Hold xanaflex -Continue tramadol 50mg q6h PO (6) Anxiety ICD Codes: F41.9 - Anxiety disorder, unspecified Plan: Pt previously was on xanax but told she could no longer take it -Start Lexapro 10mg PO daily (7) FEN/GI/PPx Status: Acute Plan: Fluids: NS IVF @ 100ml/hr Electrolytes: wnl, will replete, and monitor BMP daily Nutrition: nursing bedside swallow eval; if ok, will give diet GI: not indicated PPx: Per neurology, coumadin 5mg PO daily and heparin Tylenol 650mg PO q6h for fever; pain 1-3 Jayde-colace 1 tab PO BID Bowel regimen PRN Zofran 4mg IV q6h IV nausea Pain: tramadol 50mg PO q6h pain 4-10 Sleep: Zolpidem 5mg PO qhs (Amando Bill MD R1) Problem Qualifiers (1) CVA (cerebral vascular accident): Qualified Codes: I63.22 - Cerebral infarction due to unspecified occlusion or stenosis of basilar artery (2) Hypertension: Qualified Codes: I10 - Essential (primary) hypertension Amando Bill MD R1 Jun 22, 2017 14:22 Jasmin Leiva MD Jun 22, 2017 15:26
--- NOTE | 2017-06-22 14:39 | ECHRPT ---
Indication: cva/tia CONCLUSIONS Normal left ventricular size and wall thickness. The left ventricular systolic function is normal wi th an estimated ejection fraction in the range of 60-65%. Left ventricular diastolic function parameters a re normal. Normal left atrial appendage size with no evidence of thrombus formation. Normal atrial septal thickness without atrial level shunting by limited color doppler interrogation. No atrial level shunt is observed with agitated saline contrast administration. BP: / HR: Rhythm: Technical Quality: Medications Complications Proc. Components FINDINGS LEFT VENTRICLE Normal left ventricular size and wall thickness. The left ventricular systolic function is normal wi th an estimated ejection fraction in the range of 60-65%. Left ventricular diastolic function parameters a re normal. RIGHT VENTRICLE Normal right ventricular size and systolic function. LEFT ATRIUM The left atrial size is normal. RIGHT ATRIUM The right atrial size is normal. ATRIAL APPENDAGES Normal left atrial appendage size with no evidence of thrombus formation. ATRIAL SEPTUM Normal atrial septal thickness without atrial level shunting by limited color doppler interrogation. No atrial level shunt is observed with agitated saline contrast administration. AORTA The aortic root and proximal ascending aorta are normal in size on limited imaging. MITRAL VALVE Structurally normal mitral valve. No mitral valve stenosis or regurgitation. AORTIC VALVE Trileaflet aortic valve. No aortic valve stenosis or regurgitation. TRICUSPID VALVE Structurally normal tricuspid valve. No tricuspid valve stenosis or regurgitation. VESSELS The inferior vena cava is normal in size. PULMONARY VALVE The pulmonary valve is not well visualized. PERICADIUM No pericardial effusion. Timmy Avilez MD, FACC (Electronically Signed) Final Date:22 June 2017 14:39
[2017-06-22] MEDS: WARFARIN SOD 5 MG TAB PO SCH (16:23)
[2017-06-22] MEDS: traMADol HCL 50 MG TAB PO SCH (18:25)
[2017-06-22] MEDS: ATORVASTATIN 40 MG TAB PO SCH (21:44)
[2017-06-22] MEDS: ZOLPIDEM TARTRATE 5 MG TAB PO PRN (22:17)
[2017-06-23] VITALS (12 sets, daily range): BP systolic 112–176; BP diastolic 66–97; PULSE 55–88; RESP 11–18; TEMP 97.9–99; O2SAT 95–99
[2017-06-23] MEDS: traMADol HCL 50 MG TAB PO SCH ×4 (00:15→18:19)
[2017-06-23] MEDS: LEVOTHYROXINE SODIUM 75 MCG TAB PO SCH (05:24)
[2017-06-23] MEDS: SODIUM CHLORIDE 0.9% FLUSH 10 ML FLUSH IV FLUSH SCH ×2 (08:24→20:49)
[2017-06-23] MEDS: ESCITALOPRAM OXALATE 10 MG TAB PO SCH (08:24)
[2017-06-23] MEDS: DOCUSATE SODIUM 50 MG/SENNA 8.6 MG TAB PO SCH ×2 (08:25→20:50)
--- NOTE | 2017-06-23 10:28 | HHI.FPPN ---
Subjective Remarks Doing good this morning. No change in neurological status per the patient. She states she would like to go home but understands it is not safe at this time. She understands her INR needs to be above 1.9 for her to go and that this could take several days. She denies fevers, chills, n/v/d, sob. (Rajan Dubois MD, R3) Objective Vitals Vital Signs Date Time Temp Pulse Resp B/P (MAP) Pulse Ox O2 Delivery O2 Flow Rate FiO2 06/23/17 07:42 99 21 06/23/17 06:00 67 06/23/17 04:00 98.7 55 12 160/96 (117) 97 06/23/17 04:00 55 06/23/17 02:00 72 06/23/17 00:00 97.9 68 18 176/85 (115) 96 06/23/17 00:00 68 06/22/17 22:00 64 06/22/17 20:00 74 06/22/17 20:00 99.2 68 14 123/86 (98) 93 06/22/17 20:00 Room Air 06/22/17 18:00 74 06/22/17 16:00 62 06/22/17 16:00 98.0 61 12 166/89 (114) 97 06/22/17 14:00 76 06/22/17 12:00 98.4 66 18 96 06/22/17 12:00 66 I/O 06/22/17 06/22/17 06/22/17 06/23/17 06/23/17 06/23/17 07:00 15:00 23:00 07:00 15:00 23:00 Intake Total 1490 ml 1000 ml 240 ml Output Total 1450 ml 1050 ml Balance 40 ml 1000 ml -810 ml Intake Oral 240 ml 1000 ml 240 ml IV Total 1250 ml Output Urine Total 1450 ml 1050 ml # Voids 6 # Bowel Movements 1 3 1 (Rajan Dubois MD, R3) Result Diagram: 06/22/17 0300 06/22/17 0300 Objective Remarks GENERAL: This is a well-nourished, well-developed middle-aged female lying in bed in [facility]. SKIN: No rashes, ecchymoses or lesions. Cool and dry. HEAD: Atraumatic. Normocephalic. No temporal tenderness. EYES: PERRLA/EOMI. No scleral icterus. No injection or drainage. ENT: Nose without drainage. Throat without erythema. Uvula midline. Airway patent. NECK: Trachea midline. No JVD or lymphadenopathy. Supple, nontender, no meningeal signs. CARDIOVASCULAR: Regular rate and rhythm without murmurs, gallops, or rubs. RESPIRATORY: Clear to auscultation. Breath sounds equal bilaterally. No wheezes , rales, or rhonchi. GASTROINTESTINAL: Abdomen soft, non-tender, nondistended. MUSCULOSKELETAL: Extremities without clubbing or cyanosis; mild edema over lateral malleolus of right ankle. No calf tenderness. LLE 4/5, RLE 4/5 strength ; RUE 4/5 and LUE 4/5 strength. NEUROLOGICAL: Awake, alert and oriented x3. Cranial nerves II through XII intact. Normal speech. 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 Neurology and cardiology consulted. discussed with Dr. Sanders Discharge Planning Discharge pending INR level >1.9 per neurology. (Rajan Dubois MD, R3) Attending Attestation Patient seen and examined. Case reviewed and discussed with the resident team. Agree with plan of care as discussed with me and documented in the resident note. On exam the patient is back to her baseline neurologically. She is doing well. Continue the current plan. (Jasmin Sanders MD) Problem List: (1) CVA (cerebral vascular accident) ICD Codes: I63.9 - Cerebral infarction, unspecified Status: Acute Plan: MRA this morning showing basilar artery atheroma vs non-occluding clot; pt stable with most functionality restored (feels like she is 80-90% back to baseline); able to ambulate, speak normally. -Neurology consulted -Stop Plavix -Continue Coumadin--check INR daily. Okay to d/c when INR >1.9 and okay with neurology -ASA 325mg -Consult Cardiology for [facility]--> normal EF. No SHAHNAZ thrombus. No PFO. Outpatient event monitor for 30 days vs implantable loop recorder next week if still inpatient. -NS IVF 100ml/hr -Neuro checks -Fall precautions -PT/OT/ST (2) Hypertension ICD Codes: I10 - Hypertension Status: Acute Plan: Hold losartan 50 mg daily to allow for permissive HTN -Consider restart if SBP >200 OR DBP >100 (3) Hypothyroid ICD Codes: E03.9 - Hypothyroidism, unspecified Status: Chronic Plan: Continue home dose Levothyroxine 75 mcg PO daily (4) Chronic myofascial pain ICD Codes: M79.1 - Myalgia; G89.29 - Other chronic pain Status: Chronic Plan: -Hold xanaflex -Continue tramadol 50mg q6h PO (5) Anxiety ICD Codes: F41.9 - Anxiety disorder, unspecified Plan: Pt previously was on xanax but told she could no longer take it -Start Lexapro 10mg PO daily (6) FEN/GI/PPx Status: Acute Plan: Fluids: NS IVF @ 100ml/hr Electrolytes: wnl, will replete, and monitor BMP daily Nutrition: Heart healthy diet GI: not indicated PPx: Per neurology, coumadin 5mg PO daily and heparin Tylenol 650mg PO q6h for fever; pain 1-3 Jayde-colace 1 tab PO BID Bowel regimen PRN Zofran 4mg IV q6h IV nausea Pain: tramadol 50mg PO q6h pain 4-10 Sleep: Zolpidem 5mg PO qhs (Rajan Dubois MD, R3) Problem Qualifiers (1) CVA (cerebral vascular accident): Qualified Codes: I63.22 - Cerebral infarction due to unspecified occlusion or stenosis of basilar artery (2) Hypertension: Qualified Codes: I10 - Essential (primary) hypertension Rajan Dubois MD, R3 Jun 23, 2017 10:28 Jasmin Sanders MD Jun 24, 2017 09:27
[2017-06-23 12:51] LABS: INTERNATIONAL NORMALIZED RATIO 1.1 RATIO; PROTHROMBIN TIME - PATIENT 11.4 SEC (9.8-11.6)
[2017-06-23 12:53] LABS: BASOPHIL % 0.3 % (0.0-2.0); EOSINOPHIL # 0.1 TH/MM3 (0-0.4); EOSINOPHIL % 0.7 % (0.0-4.0); HEMATOCRIT 43.6 % (35.0-46.0); HEMOGLOBIN 15.2 GM/DL (11.6-15.3); LYMPH % 11.6 % (9.0-44.0); MEAN CELL VOLUME 95.1 FL (80.0-100.0); MEAN CORPUSCULAR HEMOGLOBIN 33.1 PG (27.0-34.0); MEAN CORPUSCULAR HGB CONC 34.9 % (32.0-36.0); MEAN PLATELET VOLUME 6.9 FL (7.0-11.0); MONO % 5.4 % (0.0-8.0); MONOCYTE # 0.5 TH/MM3 (0-0.9); PLATELET COUNT 256 TH/MM3 (150-450); RED BLOOD COUNT 4.59 MIL/MM3 (4.00-5.30); RED CELL DISTRIBUTION WIDTH 13.6 % (11.6-17.2); WHITE BLOOD COUNT 8.6 TH/MM3 (4.0-11.0)
[2017-06-23 12:58] LABS: BICARBONATE 23.2 MEQ/L (21.0-32.0); CALCIUM 8.6 MG/DL (8.5-10.1); CREATININE 0.59 MG/DL (0.50-1.00)
[2017-06-23] MEDS: SODIUM CHLOR 0.9% 1000 ML INJ 1,000 ML IV SCH (15:23)
--- NOTE | 2017-06-23 15:35 | HHI.CCPN ---
Subjective Remarks/Hospital Course 61 y/o right handed woman developed sudden speech difficulty and +/- right side weakness. By the time I saw here in the [facility] her speech was normal. Normotensive , sinus rhythm. She has been on dual antiplatelet therapy since her initial stroke 5 weeks ago. 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 She has been extensively evaluated by Dr. Ibarra. 06/22: Looks like atheromatous disease in posterior circulation. Continue full anticoagulation. She may require low dose neosynephrine gtt if SBP drifts below 130s. 06/23: Blood pressure has remained in a good range without vasopressor support. PTT > 50. INR 1.1, continue coumadin loading. Objective Vital Signs Date Time Temp Pulse Resp B/P (MAP) Pulse Ox O2 Delivery O2 Flow Rate FiO2 06/23/17 13:30 99.0 76 18 140/97 (111) 98 06/23/17 07:42 21 06/22/17 20:00 Room Air 06/21/17 16:00 2.00 Intake and Output 06/23/17 06/23/17 06/24/17 08:00 16:00 00:00 Intake Total 240 ml 1450 ml Output Total 1050 ml Balance -810 ml 1450 ml Result Diagram: 06/23/17 1205 06/23/17 1205 Objective Remarks Head: Atraumatic. Neck: Supple, airway widely patent. Lungs: Clear. No adventitious sounds. Heart: NL S1S2, RRR. No JVD. Abdomen: Benign, soft. No guarding. Neuro: Speech clear. Moves 4 limbs to command. O X 3, conversant. Tracks with eyes. A/P Assessment and Plan Assessment: 1. Acute ischemic stroke. 2. Basilar artery occlusive disease Plan: 1. Full anticoagulation with heparin. 2. F/U Head CT. 3. Pepcid. 4. PT, OT evaluation. 5. Acute CVA protocol. 6. Coumadin daily, follow INR. D/C heparin when INR therapeutic Overall impression: Cleared speech remains. Protects airway well, normotensive. OK to transfer anytime. Will sign off. Phani Allan MD Jun 23, 2017 15:35
[2017-06-23] MEDS: WARFARIN SOD 5 MG TAB PO SCH (17:01)
[2017-06-23] MEDS: ATORVASTATIN 40 MG TAB PO SCH (20:48)
[2017-06-23] MEDS: ZOLPIDEM TARTRATE 5 MG TAB PO PRN (20:48)
[2017-06-24] VITALS (11 sets, daily range): BP systolic 125–181; BP diastolic 75–90; PULSE 66–85; RESP 18–20; TEMP 97.1–99; O2SAT 96–100
[2017-06-24] MEDS: traMADol HCL 50 MG TAB PO SCH ×4 (00:19→18:02)
[2017-06-24] MEDS: SODIUM CHLOR 0.9% 1000 ML INJ 1,000 ML IV SCH ×3 (03:08→11:45)
[2017-06-24] MEDS: HEPARIN-D5W 25,000 U/250 ML 250 ML IV PRN (03:08)
[2017-06-24] MEDS: LEVOTHYROXINE SODIUM 75 MCG TAB PO SCH (06:04)
[2017-06-24] MEDS: SODIUM CHLORIDE 0.9% FLUSH 10 ML FLUSH IV FLUSH SCH ×2 (07:18→21:00)
[2017-06-24] MEDS: DOCUSATE SODIUM 50 MG/SENNA 8.6 MG TAB PO SCH ×2 (07:49→21:00)
[2017-06-24] MEDS: ESCITALOPRAM OXALATE 10 MG TAB PO SCH (07:49)
[2017-06-24 08:35] LABS: HEMATOCRIT 41.2 % (35.0-46.0); HEMOGLOBIN 14.3 GM/DL (11.6-15.3); MEAN CELL VOLUME 94.7 FL (80.0-100.0); MEAN CORPUSCULAR HGB CONC 34.8 % (32.0-36.0); MEAN PLATELET VOLUME 6.9 FL (7.0-11.0); PLATELET COUNT 240 TH/MM3 (150-450); RED BLOOD COUNT 4.35 MIL/MM3 (4.00-5.30); RED CELL DISTRIBUTION WIDTH 13.6 % (11.6-17.2); WHITE BLOOD COUNT 6.4 TH/MM3 (4.0-11.0)
--- NOTE | 2017-06-24 08:39 | HHI.PR ---
Review/Management Daily Summary stable neuro inr pending heparin/coumadin she feels back to baseline wants lexapro off/diarrhea Subjective Subjective Comments No acute events reported No headache Active Medications Current Medications Medications (Trade) Dose Ordered Sig/Rob Route Start Time Stop Time Status Last Admin Heparin Sodium/ Dextrose 250 ml @ 12 mls/hr TITRATE PRN IV 06/21/17 12:45 06/24/17 03:08 Sodium Chloride 1,000 ml @ 100 mls/hr Q10H IV 06/21/17 12:54 06/24/17 03:08 (Coumadin) 5 mg DAILY@1600 PO 06/21/17 16:00 06/23/17 17:01 (NS Flush) 2 ml UNSCH PRN IV FLUSH 06/21/17 17:00 (NS Flush) 2 ml BID IV FLUSH 06/21/17 21:00 06/23/17 08:24 (Tylenol) 650 mg Q4H PRN PO 06/21/17 17:00 (Zofran Inj) 4 mg Q6H PRN IVP 06/21/17 17:00 06/23/17 14:05 (Ambien) 5 mg HS PRN PO 06/21/17 17:00 06/23/17 20:48 (Narcan Inj) 0.4 mg UNSCH PRN IV PUSH 06/21/17 17:00 (Jayde-Colace) 1 tab BID PO 06/21/17 21:00 06/22/17 13:52 (Milk Of Magnesia Liq) 30 ml Q12H PRN PO 06/21/17 17:00 (Senokot) 17.2 mg Q12H PRN PO 06/21/17 17:00 (Dulcolax Supp) 10 mg DAILY PRN RECTAL 06/21/17 17:00 (Lactulose Liq) 30 ml DAILY PRN PO 06/21/17 17:00 (Lexapro) 10 mg DAILY PO 06/22/17 09:00 06/23/17 08:24 (Tylenol) 650 mg Q4H PRN PO 06/21/17 18:15 06/21/17 21:12 (Lipitor) 40 mg HS PO 06/21/17 21:00 06/23/17 20:48 (Synthroid) 75 mcg DAILY@0600 PO 06/22/17 06:00 06/24/17 06:04 Phenylephrine HCl 80 mg/Sodium Chloride 500 ml @ 15 mls/hr TITRATE PRN IV 06/22/17 13:00 (Brethine Inj) 1 mg UNSCH PRN SQ 06/22/17 13:00 (Ultram) 50 mg Q6H PO 06/22/17 18:15 06/24/17 06:05 Allergies Allergies Coded Allergies No Known Allergies (Unverified Adverse Reaction, Unknown, 06/21/17) Exam I&O / VS Vital Signs Date Time Temp Pulse Resp B/P (MAP) Pulse Ox O2 Delivery O2 Flow Rate FiO2 06/24/17 06:45 98.2 76 19 145/80 (101) 98 06/24/17 01:00 97.1 75 18 125/75 (92) 98 06/23/17 21:23 98 06/23/17 20:30 98.0 76 17 112/70 (84) 98 06/23/17 16:00 98.8 86 18 131/66 (87) 98 06/23/17 13:30 99.0 76 18 140/97 (111) 98 06/23/17 13:17 18 06/23/17 12:00 68 06/23/17 12:00 98.7 68 11 153/76 (101) 96 06/23/17 10:00 88 Respiratory: Lungs CTA, Non-labored respirations, Symmetrical expansion Cardiology: Normal rate, Normal peripheral perfusion, No edema, Regular Rhythm Musculoskeletal: ROM Objective Micro and Labs Laboratory Tests Test 06/23/17 12:05 06/24/17 07:39 White Blood Count 8.6 6.4 Red Blood Count 4.59 4.35 Hemoglobin 15.2 14.3 Hematocrit 43.6 41.2 Mean Corpuscular Volume 95.1 94.7 Mean Corpuscular Hemoglobin 33.1 33.0 Mean Corpuscular Hemoglobin Concent 34.9 34.8 Red Cell Distribution Width 13.6 13.6 Platelet Count 256 240 Mean Platelet Volume 6.9 6.9 Neutrophils (%) (Auto) 82.0 Lymphocytes (%) (Auto) 11.6 Monocytes (%) (Auto) 5.4 Eosinophils (%) (Auto) 0.7 Basophils (%) (Auto) 0.3 Neutrophils # (Auto) 7.0 Lymphocytes # (Auto) 1.0 Monocytes # (Auto) 0.5 Eosinophils # (Auto) 0.1 Basophils # (Auto) 0.0 CBC Comment DIFF FINAL Differential Comment Prothrombin Time 11.4 Prothromb Time International Ratio 1.1 Activated Partial Thromboplast Time 60.2 Blood Urea Nitrogen 7 Creatinine 0.59 Random Glucose 135 Calcium Level 8.6 Sodium Level 142 Potassium Level 3.6 Chloride Level 111 Carbon Dioxide Level 23.2 Anion Gap 8 Estimat Glomerular Filtration Rate 104 Efren Aiken MD Jun 24, 2017 08:39
[2017-06-24 08:49] LABS: INTERNATIONAL NORMALIZED RATIO 1.2 RATIO
[2017-06-24 09:13] LABS: BICARBONATE 26.3 MEQ/L (21.0-32.0); CALCIUM 8.8 MG/DL (8.5-10.1); CREATININE 0.59 MG/DL (0.50-1.00)
[2017-06-24] MEDS ORDERED: POTASSIUM CHLORIDE 10 MEQ CONTROLLED RELEASE TAB PO ONE (10:30)
--- NOTE | 2017-06-24 11:10 | HHI.FPPN ---
Subjective Remarks ELIEL. Ms is upset that her INR is taking so long to get to 2.0; she hasn 't had a shower and is sitting in the bedside chair for the first time since her CVA. She got "violent diarrhea" from the Lexapro and asked that it be discontinued and asked if she could be restarted on her xanax again. (Amando Bill MD R1) Objective Vitals Vital Signs Date Time Temp Pulse Resp B/P (MAP) Pulse Ox O2 Delivery O2 Flow Rate FiO2 06/24/17 08:58 66 06/24/17 08:00 98.2 74 18 140/90 (107) 96 06/24/17 06:45 98.2 76 19 145/80 (101) 98 06/24/17 01:00 97.1 75 18 125/75 (92) 98 06/23/17 21:23 98 06/23/17 20:30 98.0 76 17 112/70 (84) 98 06/23/17 16:00 98.8 86 18 131/66 (87) 98 06/23/17 13:30 99.0 76 18 140/97 (111) 98 06/23/17 13:17 18 06/23/17 12:00 68 06/23/17 12:00 98.7 68 11 153/76 (101) 96 I/O 06/23/17 06/23/17 06/23/17 06/24/17 06/24/17 06/24/17 07:00 15:00 23:00 07:00 15:00 23:00 Intake Total 240 ml 450 ml 1850 ml 1000 ml Output Total 1050 ml Balance -810 ml 450 ml 1850 ml 1000 ml Intake Oral 240 ml 450 ml 850 ml 1000 ml IV Total 1000 ml Output Urine Total 1050 ml # Voids 2 10 # Bowel Movements 1 0 0 (Amando Bill MD R1) Result Diagram: 06/24/1739 06/24/17 07 Objective Remarks GENERAL: This is a well-nourished, well-developed middle-aged female lying in bed in [facility]. SKIN: No rashes, ecchymoses or lesions. Cool and dry. HEAD: Atraumatic. Normocephalic. No temporal tenderness. EYES: PERRLA/EOMI. No scleral icterus. No injection or drainage. ENT: Nose without drainage. Throat without erythema. Uvula midline. Airway patent. NECK: Trachea midline. No JVD or lymphadenopathy. Supple, nontender, no meningeal signs. CARDIOVASCULAR: Regular rate and rhythm without murmurs, gallops, or rubs. RESPIRATORY: Clear to auscultation. Breath sounds equal bilaterally. No wheezes , rales, or rhonchi. GASTROINTESTINAL: Abdomen soft, non-tender, nondistended. MUSCULOSKELETAL: Extremities without clubbing or cyanosis; mild edema over lateral malleolus of right ankle. No calf tenderness. LLE 4/5, RLE 4/5 strength ; RUE 4/5 and LUE 4/5 strength. NEUROLOGICAL: Awake, alert and oriented x3. Cranial nerves II through XII intact. Normal speech. 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 Neurology and cardiology consulted. discussed with Dr. Leiva Discharge Planning Discharge pending INR level >1.9 per neurology. (Amando Bill MD R1) Attending Attestation The exam, history, and the medical decision-making described in the above note were completed with the assistance of the resident physician. I reviewed and agree with the findings presented. I attest that I had a [id number] encounter with the patient on the same day, and personally performed and documented my assessment and findings in the medical record. Patient is overall at her clinical baseline. She is having some depressed mood and anxiety as she has been in the hospital or rehab for most of the last two months. She would likely benefit from SSRI and CBT -- however, patient does not want to continue the SSRI due to the GI effects. Neurologically she is back at her baseline. On exam lungs are clear, heart is regular rate and rhythm 1. CVA - continue with the Coumadin -- she has received 3 doses of warfarin 5mg and little change in her INR. Based on nomogram for warfarin initiation will increase her dose to 10mg for dose #4. Further adjustments based on the INR level tomorrow. PT/OT reconsulted. 2. Depression - situational and reactive, will restart her low dose xanax for now as she is just struggling with this hospital stay. She is the main financial provider for her family as her is disabled and she is very worried about their future. I will consider SSRI and CBT as outpatient after discharge as she is reluctant to try anything new today. Patient seen and dw the resident -- [facility] Bill [facility] Problem List: (1) CVA (cerebral vascular accident) ICD Codes: I63.9 - Cerebral infarction, unspecified Status: Acute Plan: MRA this morning showing basilar artery atheroma vs non-occluding clot; pt stable with most functionality restored (feels like she is 80-90% back to baseline); able to ambulate, speak normally. -Neurology consulted -Stop Plavix -Continue Coumadin--check INR daily. Okay to d/c when INR >1.9 and okay with neurology -ASA 325mg -Consult Cardiology for [facility]--> normal EF. No SHAHNAZ thrombus. No PFO. Outpatient event monitor for 30 days vs implantable loop recorder next week if still inpatient. -NS IVF 100ml/hr -Neuro checks -Fall precautions -PT/OT/ST (2) Hypertension ICD Codes: I10 - Hypertension Status: Acute Plan: Hold losartan 50 mg daily to allow for permissive HTN -Consider restart if SBP >200 OR DBP >100 (3) Hypothyroid ICD Codes: E03.9 - Hypothyroidism, unspecified Status: Chronic Plan: Continue home dose Levothyroxine 75 mcg PO daily (4) Chronic myofascial pain ICD Codes: M79.1 - Myalgia; G89.29 - Other chronic pain Status: Chronic Plan: -Hold xanaflex -Continue tramadol 50mg q6h PO (5) Anxiety ICD Codes: F41.9 - Anxiety disorder, unspecified Plan: Pt previously was on xanax but told she could no longer take it -Start Lexapro 10mg PO daily (6) FEN/GI/PPx Status: Acute Plan: Fluids: NS IVF @ 100ml/hr Electrolytes: wnl, will replete, and monitor BMP daily Nutrition: Heart healthy diet GI: not indicated PPx: Per neurology, coumadin 5mg PO daily and heparin Tylenol 650mg PO q6h for fever; pain 1-3 Jayde-colace 1 tab PO BID Bowel regimen PRN Zofran 4mg IV q6h IV nausea Pain: tramadol 50mg PO q6h pain 4-10 Sleep: Zolpidem 5mg PO qhs (Amando Bill MD R1) Problem Qualifiers (1) CVA (cerebral vascular accident): Qualified Codes: I63.22 - Cerebral infarction due to unspecified occlusion or stenosis of basilar artery (2) Hypertension: Qualified Codes: I10 - Essential (primary) hypertension Amando Bill MD R1 Jun 24, 2017 11:10 Jasmin Leiva MD Jun 24, 2017 11:34
[2017-06-24] MEDS ORDERED: WARFARIN SOD 10 MG TAB PO SCH (16:00)
[2017-06-24] MEDS: ALPRAZolam 0.25 MG TAB PO PRN (21:55)
[2017-06-24] MEDS: ATORVASTATIN 40 MG TAB PO SCH (21:55)
[2017-06-24] MEDS: ZOLPIDEM TARTRATE 5 MG TAB PO PRN (21:55)
[2017-06-25] VITALS (11 sets, daily range): BP systolic 123–187; BP diastolic 73–101; PULSE 62–82; RESP 18–19; TEMP 97.9–98.6; O2SAT 95–98
[2017-06-25] MEDS: traMADol HCL 50 MG TAB PO SCH ×2 (00:29→06:07)
[2017-06-25] MEDS: HEPARIN-D5W 25,000 U/250 ML 250 ML IV PRN (04:31)
[2017-06-25] MEDS: LEVOTHYROXINE SODIUM 75 MCG TAB PO SCH (06:00)
[2017-06-25] MEDS: DOCUSATE SODIUM 50 MG/SENNA 8.6 MG TAB PO SCH ×2 (07:12→21:00)
[2017-06-25] MEDS: SODIUM CHLORIDE 0.9% FLUSH 10 ML FLUSH IV FLUSH SCH ×2 (07:12→21:02)
[2017-06-25 07:23] LABS: INTERNATIONAL NORMALIZED RATIO 1.3 RATIO; PROTHROMBIN TIME - PATIENT 13.5 SEC (9.8-11.6)
--- NOTE | 2017-06-25 07:40 | HHI.PR ---
Subjective Remarks sr still Objective Vital Signs Date Time Temp Pulse Resp B/P (MAP) Pulse Ox O2 Delivery O2 Flow Rate FiO2 06/25/17 00:15 62 06/25/17 00:00 98.2 75 18 187/96 (126) 96 06/24/17 20:15 80 06/24/17 20:00 98.5 66 20 181/86 (117) 97 06/24/17 16:55 73 06/24/17 16:00 99.0 78 18 128/78 (95) 97 06/24/17 13:05 85 06/24/17 12:00 98.1 79 18 145/85 (105) 97 06/24/17 11:00 100 06/24/17 08:58 66 06/24/17 08:00 98.2 74 18 140/90 (107) 96 I/O 06/24/17 06/24/17 06/24/17 06/25/17 06/25/17 06/25/17 07:00 15:00 23:00 07:00 15:00 23:00 Intake Total 1000 ml 1630 ml Balance 1000 ml 1630 ml Intake Oral 1000 ml 720 ml IV Total 910 ml # Voids 10 12 # Bowel Movements 0 Result Diagram: 06/24/17 0739 06/24/17 0739 Objective Remarks vff face sym awake alert moving r side nl x old finding left same as prior also doing great some anxiety Assessment and Plan Assessment and Plan imp mri no cva clot in basilar on hep and coumadin inr yet to bump not eating greens oob'' repeat mra cow clot gone ambulate with PT would like to get loop placed nneds inr>1.9 b4 dc try zoloft consider cymbalta in future with aches and pains i dced tramadol contraindicated in prior cortical cva as lowers sz risk Ben Ibarra MD Jun 25, 2017 07:40
[2017-06-25] MEDS: ALPRAZolam 0.25 MG TAB PO PRN ×2 (07:48→21:06)
[2017-06-25] MEDS: SERTRALINE HCL 50 MG TAB PO SCH (08:00)
[2017-06-25] MEDS ORDERED: PILL SPLITTER OTHER PRN (08:00)
--- NOTE | 2017-06-25 09:21 | HHI.FPPN ---
Subjective Remarks ELIEL. Pt anxious about having Tramadol taken away and did get zanax this morning. BP has been elevated and Dr Ibarra will allow HTN to be treated today. Loop recorder will be placed today. INR 1.3 today with goal of >1.9 before discharge. No CP, SOB, N/V/D, DVT pain. (Amando Bill MD R1) Objective Vitals Vital Signs Date Time Temp Pulse Resp B/P (MAP) Pulse Ox O2 Delivery O2 Flow Rate FiO2 06/25/17 08:46 76 06/25/17 08:00 97.9 82 18 155/100 (118) 96 06/25/17 04:00 98.5 75 18 162/99 (120) 95 06/25/17 00:15 62 06/25/17 00:00 98.2 75 18 187/96 (126) 96 06/24/17 20:15 80 06/24/17 20:00 98.5 66 20 181/86 (117) 97 06/24/17 16:55 73 06/24/17 16:00 99.0 78 18 128/78 (95) 97 06/24/17 13:05 85 06/24/17 12:00 98.1 79 18 145/85 (105) 97 06/24/17 11:00 100 I/O 06/24/17 06/24/17 06/24/17 06/25/17 06/25/17 06/25/17 07:00 15:00 23:00 07:00 15:00 23:00 Intake Total 1000 ml 1630 ml Balance 1000 ml 1630 ml Intake Oral 1000 ml 720 ml IV Total 910 ml # Voids 10 12 # Bowel Movements 0 (Amando Bill MD R1) Result Diagram: 06/24/17 0739 06/24/17 0739 Objective Remarks GENERAL: This is a well-nourished, well-developed middle-aged female sitting in bedside chair, anxious and tearful. SKIN: No rashes, ecchymoses or lesions. Cool and dry. HEAD: Atraumatic. Normocephalic. EYES: PERRLA/EOMI. No scleral icterus. No injection or drainage. ENT: Nose without drainage. Throat without erythema. Uvula midline. Airway patent. MMM. NECK: Trachea midline. No JVD or lymphadenopathy. Supple, nontender, no meningeal signs. CARDIOVASCULAR: Regular rate and rhythm without murmurs, gallops, or rubs. RESPIRATORY: Clear to auscultation. Breath sounds equal bilaterally. No wheezes , rales, or rhonchi. GASTROINTESTINAL: Abdomen soft, non-tender, nondistended. MUSCULOSKELETAL: Extremities without clubbing or cyanosis; No edema. No calf tenderness. LLE 4/5, RLE 4/5 strength; RUE 4/5 and LUE 4/5 strength. NEUROLOGICAL: Awake, alert and oriented x3. Cranial nerves II through XII intact. Normal speech. Mild contracture of bilateral hand PIPs 2-5 (chronic) Medications and IVs Current Medications Medications (Trade) Dose Ordered Sig/Rob Route Start Time Stop Time Status Last Admin Heparin Sodium/ Dextrose 250 ml @ 12 mls/hr TITRATE PRN IV 06/21/17 12:45 06/25/17 04:31 (NS Flush) 2 ml UNSCH PRN IV FLUSH 06/21/17 17:00 (NS Flush) 2 ml BID IV FLUSH 06/21/17 21:00 06/23/17 08:24 (Tylenol) 650 mg Q4H PRN PO 06/21/17 17:00 (Zofran Inj) 4 mg Q6H PRN IVP 06/21/17 17:00 06/23/17 14:05 (Ambien) 5 mg HS PRN PO 06/21/17 17:00 06/24/17 21:55 (Narcan Inj) 0.4 mg UNSCH PRN IV PUSH 06/21/17 17:00 (Jayde-Colace) 1 tab BID PO 06/21/17 21:00 06/22/17 13:52 (Milk Of Magnesia Liq) 30 ml Q12H PRN PO 06/21/17 17:00 (Senokot) 17.2 mg Q12H PRN PO 06/21/17 17:00 (Dulcolax Supp) 10 mg DAILY PRN RECTAL 06/21/17 17:00 (Lactulose Liq) 30 ml DAILY PRN PO 06/21/17 17:00 (Tylenol) 650 mg Q4H PRN PO 06/21/17 18:15 06/21/17 21:12 (Lipitor) 40 mg HS PO 06/21/17 21:00 06/24/17 21:55 (Synthroid) 75 mcg DAILY@0600 PO 06/22/17 06:00 06/25/17 06:00 Phenylephrine HCl 80 mg/Sodium Chloride 500 ml @ 15 mls/hr TITRATE PRN IV 06/22/17 13:00 (Brethine Inj) 1 mg UNSCH PRN SQ 06/22/17 13:00 (Xanax) 0.25 mg Q8H PRN PO 06/24/17 11:15 06/25/17 07:48 (Zoloft) 25 mg DAILY PO 06/25/17 09:00 (Pill Splitter) 1 ea UNSCH PRN OTHER 06/25/17 08:00 (Amando Bill MD R1) Urinary Catheter: No (Amando Bill MD R1) A/P Assessment and Plan 61YO female with PMHx CVA in April 2017, syringomyelia, DM, HTN, HLD presents with stroke alert and imaging showing 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 Neurology and cardiology consulted. TODAY: -place loop recorder -INR 1.3 today. Will give warfarin 10mg PO today -Start home dose losartan 50mg BID; hold if SBP<110 or DBP<[address] Leiva Discharge Planning Discharge pending INR level >1.9 per neurology. (Amando Bill MD R1) Attending Attestation The exam, history, and the medical decision-making described in the above note were completed with the assistance of the resident physician. I reviewed and agree with the findings presented. I attest that I had a [id number] encounter with the patient on the same day, and personally performed and documented my assessment and findings in the medical record. Patient with longstanding history of chronic pain due to her back/ musculoskeletal disease processes that typically takes tramadol every 6hours, Celebrex and a muscle relaxant. Appreciate the need to d/c tramadol for the potential lowering of the seizure threshold, however the patient cannot be without some sort of pain control. Due to the heparin and the coumadin and her other medication discussed her case with the pharmacist -- agreed with what is available on formulary at [facility] that low dose oxycodone orally would be the best option. Her tramadol was a 5mg morphine equivalent and the 2.5mg oxycodone is 3.75mg morphine equivalent -- so we are not escalating her dose. DWPT in detail and to watch for signs of sedation. She is agreeable and understands. Anxiety/Depression -- agree the patient would benefit from SSRI however she does not want to initiate trial of anything else due to the extreme GI effects she had with the lexapro. DWPT in detail and would rec continue her low dose benzo for now and consider SSRI as outpatient when she is in a more comfortable setting. Will also have the television installer come by to see the patient. She declines CBT. Patient is doing well - observed her ambulating around the room with her walker. (Jasmin Leiva MD) Problem List: (1) CVA (cerebral vascular accident) ICD Codes: I63.9 - Cerebral infarction, unspecified Status: Acute Plan: MRA this morning showing basilar artery atheroma vs non-occluding clot; pt stable with most functionality restored (feels like she is 80-90% back to baseline); able to ambulate, speak normally. -Neurology consulted -Stop Plavix -Continue Coumadin--check INR daily. Okay to d/c when INR >1.9 and okay with neurology -ASA 325mg -Consult Cardiology for [facility]--> normal EF. No SHAHNAZ thrombus. No PFO. Outpatient event monitor for 30 days vs implantable loop recorder today -DC'd IVF 06/24; pt taking PO fluids -Neuro checks -Fall precautions -PT/OT/ST (2) Hypertension ICD Codes: I10 - Hypertension Status: Acute Plan: Started home dose losartan 50 mg daily to begin reducing BP -Hold if SBP <110 OR DBP <65 (3) Hypothyroid ICD Codes: E03.9 - Hypothyroidism, unspecified Status: Chronic Plan: Continue home dose Levothyroxine 75 mcg PO daily (4) Chronic myofascial pain ICD Codes: M79.1 - Myalgia; G89.29 - Other chronic pain Status: Chronic Plan: -Hold xanaflex -DC'd home tramadol 50mg q6h PO per Dr Ibarra (5) Anxiety ICD Codes: F41.9 - Anxiety disorder, unspecified Plan: Pt takes xanax at home -Had diarrhea when Lexapro 10mg PO daily was started--pt refuses -Dr Ibarra suggested starting zoloft but pt prefers not to take -Restarted home dose xanax PRN (6) FEN/GI/PPx Status: Acute Plan: Fluids: PO fluids Electrolytes: wnl, will replete, and monitor BMP daily Nutrition: Heart healthy diet GI: not indicated PPx: Per neurology, coumadin and heparin (per nomogram with day 4 INR warfarin level 1.3, coumadin 10mg) Tylenol 650mg PO q6h for fever; pain 1-3 Jayde-colace 1 tab PO BID Bowel regimen PRN Zofran 4mg IV q6h IV nausea Pain: as per above, holding home tramadol 50mg PO q6h pain 4-10 Sleep: Zolpidem 5mg PO qhs (Amando Bill MD R1) Problem Qualifiers (1) CVA (cerebral vascular accident): Qualified Codes: I63.22 - Cerebral infarction due to unspecified occlusion or stenosis of basilar artery (2) Hypertension: Qualified Codes: I10 - Essential (primary) hypertension Amando Bill MD R1 Jun 25, 2017 09:21 Jasmin Leiva MD Jun 25, 2017 15:21
[2017-06-25 14:19] LABS: HEMATOCRIT 42.8 % (35.0-46.0); HEMOGLOBIN 14.7 GM/DL (11.6-15.3); MEAN CELL VOLUME 94.5 FL (80.0-100.0); MEAN CORPUSCULAR HEMOGLOBIN 32.4 PG (27.0-34.0); MEAN CORPUSCULAR HGB CONC 34.3 % (32.0-36.0); MEAN PLATELET VOLUME 6.9 FL (7.0-11.0); PLATELET COUNT 245 TH/MM3 (150-450); RED BLOOD COUNT 4.53 MIL/MM3 (4.00-5.30); RED CELL DISTRIBUTION WIDTH 13.7 % (11.6-17.2); WHITE BLOOD COUNT 6.1 TH/MM3 (4.0-11.0)
[2017-06-25 14:45] LABS: BICARBONATE 28.2 MEQ/L (21.0-32.0); CALCIUM 9.4 MG/DL (8.5-10.1); CREATININE 0.58 MG/DL (0.50-1.00)
[2017-06-25] MEDS: LOSARTAN 25 MG TAB PO SCH (16:21)
[2017-06-25] MEDS: ATORVASTATIN 40 MG TAB PO SCH (21:03)
[2017-06-25] MEDS: ZOLPIDEM TARTRATE 5 MG TAB PO PRN (21:06)
[2017-06-26] VITALS (7 sets, daily range): BP systolic 117–149; BP diastolic 61–97; PULSE 71–95; RESP 16–20; TEMP 98–98.5; O2SAT 95–100
[2017-06-26] MEDS: LEVOTHYROXINE SODIUM 75 MCG TAB PO SCH (05:35)
[2017-06-26] MEDS: LOSARTAN 25 MG TAB PO SCH ×2 (05:36→18:10)
[2017-06-26] MEDS: HEPARIN-D5W 25,000 U/250 ML 250 ML IV PRN (05:41)
[2017-06-26] MEDS: SERTRALINE HCL 50 MG TAB PO SCH (06:56)
[2017-06-26] MEDS: DOCUSATE SODIUM 50 MG/SENNA 8.6 MG TAB PO SCH ×2 (06:56→20:54)
[2017-06-26] MEDS: SODIUM CHLORIDE 0.9% FLUSH 10 ML FLUSH IV FLUSH SCH ×2 (06:56→20:54)
[2017-06-26 07:17] LABS: HEMATOCRIT 41.3 % (35.0-46.0); HEMOGLOBIN 14.5 GM/DL (11.6-15.3); MEAN CELL VOLUME 93.7 FL (80.0-100.0); MEAN CORPUSCULAR HEMOGLOBIN 32.9 PG (27.0-34.0); MEAN CORPUSCULAR HGB CONC 35.1 % (32.0-36.0); MEAN PLATELET VOLUME 6.9 FL (7.0-11.0); PLATELET COUNT 235 TH/MM3 (150-450); RED BLOOD COUNT 4.41 MIL/MM3 (4.00-5.30); RED CELL DISTRIBUTION WIDTH 13.9 % (11.6-17.2)
[2017-06-26 07:21] LABS: INTERNATIONAL NORMALIZED RATIO 1.4 RATIO; PROTHROMBIN TIME - PATIENT 14.4 SEC (9.8-11.6)
[2017-06-26] MEDS: ALPRAZolam 0.25 MG TAB PO PRN ×2 (07:32→20:53)
[2017-06-26 07:35] LABS: BICARBONATE 28.7 MEQ/L (21.0-32.0); CALCIUM 9.4 MG/DL (8.5-10.1); CREATININE 0.61 MG/DL (0.50-1.00)
--- NOTE | 2017-06-26 08:02 | HHI.PR ---
Subjective Remarks sr still Objective Vital Signs Date Time Temp Pulse Resp B/P (MAP) Pulse Ox O2 Delivery O2 Flow Rate FiO2 06/26/17 05:33 98.0 82 18 146/89 (108) 96 06/26/17 00:47 98.1 72 18 149/82 (104) 96 06/25/17 21:22 98.3 76 18 123/73 (90) 95 06/25/17 20:00 64 06/25/17 17:14 65 06/25/17 16:00 98.6 71 19 171/86 (114) 96 06/25/17 14:06 70 06/25/17 12:00 98.0 71 18 142/101 (115) 98 06/25/17 08:46 76 I/O 06/25/17 06/25/17 06/25/17 06/26/17 06/26/17 06/26/17 07:00 15:00 23:00 07:00 15:00 23:00 Intake Total 480 ml 100 ml Balance 480 ml 100 ml Intake Oral 480 ml IV Total 100 ml # Voids 4 2 4 # Bowel Movements 1 Result Diagram: 06/26/17 0545 06/26/17 0545 Objective Remarks vff face sym awake alert moving r side nl x old finding left same as prior also doing great some anxiety no change Assessment and Plan Assessment and Plan imp mri no cva clot in basilar on hep and coumadin inr yet to bump not eating greens oob'' repeat mra cow clot still present on review of report and films ambulate with PT would like to get loop placed nneds inr>1.9 b4 dc try zoloft consider cymbalta in future with aches and pains i dced tramadol contraindicated in prior cortical cva as lowers sz risk 06/26/17 for loop today make sure she gets coumadin dose tonight inr 1.4 refuses zoloft wants xanax i would rec due to addiction potential of xanax guide her towards zoloft kelsea neg mra cow i reviewed and there is still clot in the basilar artery on it plan is loop and dc when inr 2.0 Ben Ibarra MD Jun 26, 2017 08:02
[2017-06-26] MEDS ORDERED: LOPERAMIDE HCL 2 MG CAP PO PRN (12:45)
--- NOTE | 2017-06-26 14:06 | HHI.FPPN ---
Subjective Remarks Patient is doing well this morning. Patient states the Roxicodone is working similarly to her tramadol. She is anxious to get her procedure over with. Nursing states she is going for the loop recorder at 3 PM. She denies chest pain, nausea, vomiting, short of breath. (Rajan Dubois MD, R3) Objective Vitals Vital Signs Date Time Temp Pulse Resp B/P (MAP) Pulse Ox O2 Delivery O2 Flow Rate FiO2 06/26/17 12:13 71 06/26/17 12:00 98.2 76 16 145/96 (112) 95 06/26/17 08:50 73 06/26/17 08:34 98.5 95 20 149/97 (114) 98 06/26/17 05:33 98.0 82 18 146/89 (108) 96 06/26/17 00:47 98.1 72 18 149/82 (104) 96 06/25/17 21:22 98.3 76 18 123/73 (90) 95 06/25/17 20:00 64 06/25/17 17:14 65 06/25/17 16:00 98.6 71 19 171/86 (114) 96 06/25/17 14:06 70 I/O 06/25/17 06/25/17 06/25/17 06/26/17 06/26/17 06/26/17 07:00 15:00 23:00 07:00 15:00 23:00 Intake Total 480 ml 100 ml Balance 480 ml 100 ml Intake Oral 480 ml IV Total 100 ml # Voids 4 2 4 # Bowel Movements 1 (Rajan Dubois MD, R3) Result Diagram: 06/26/17 0545 06/26/17 0545 Objective Remarks GENERAL: This is a well-nourished, well-developed middle-aged female sitting in bedside chair, no acute distress SKIN: No rashes, ecchymoses or lesions. Cool and dry. HEAD: Atraumatic. Normocephalic. EYES: PERRLA/EOMI. No scleral icterus. No injection or drainage. ENT: Nose without drainage. Throat without erythema. Uvula midline. Airway patent. MMM. NECK: Trachea midline. No JVD or lymphadenopathy. Supple, nontender, no meningeal signs. CARDIOVASCULAR: Regular rate and rhythm without murmurs, gallops, or rubs. RESPIRATORY: Clear to auscultation. Breath sounds equal bilaterally. No wheezes , rales, or rhonchi. GASTROINTESTINAL: Abdomen soft, non-tender, nondistended. MUSCULOSKELETAL: Extremities without clubbing or cyanosis; No edema. No calf tenderness. LLE 4/5, RLE 4/5 strength; RUE 4/5 and LUE 4/5 strength. NEUROLOGICAL: Awake, alert and oriented x3. Cranial nerves II through XII intact. Normal speech. 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 Neurology and cardiology consulted. Discharge Planning Discharge pending INR level >2.0 per neurology. (Rajan Dubois MD, R3) Attending Attestation Case reviewed and discussed with the resident team. Agree with plan of care as discussed with me and documented in the resident note. (Jasmin Leiva MD) Problem List: (1) CVA (cerebral vascular accident) ICD Codes: I63.9 - Cerebral infarction, unspecified Status: Acute Plan: MRA this morning showing basilar artery atheroma vs non-occluding clot; pt stable with most functionality restored (feels like she is 80-90% back to baseline); able to ambulate, speak normally. -Neurology consulted -Stop Plavix -Continue Coumadin--check INR daily. Okay to d/c when INR >2.0 and okay with neurology -ASA 325mg -Consult Cardiology for [facility]--> normal EF. No SHAHNAZ thrombus. No PFO. Loop recorder to be implanted today. -Neuro checks -Fall precautions -PT/OT/ST (2) Hypertension ICD Codes: I10 - Hypertension Status: Acute Plan: Started home dose losartan 50 mg daily to begin reducing BP -Hold if SBP <110 OR DBP <65 (3) Hypothyroid ICD Codes: E03.9 - Hypothyroidism, unspecified Status: Chronic Plan: Continue home dose Levothyroxine 75 mcg PO daily (4) Chronic myofascial pain ICD Codes: M79.1 - Myalgia; G89.29 - Other chronic pain Status: Chronic Plan: -Hold xanaflex -DC'd home tramadol 50mg q6h PO per Dr Ibarra Switch from tramadol to Roxicodone 2.5 mg by mouth every 8 hours. Her home tramadol was a 5mg morphine equivalent and the 2.5mg oxycodone is 3.75mg morphine equivalent -- so we are not escalating her dose. DWPT in detail and to watch for signs of sedation. She is agreeable and understands. (5) Anxiety ICD Codes: F41.9 - Anxiety disorder, unspecified Plan: Pt takes xanax at home -Had diarrhea when Lexapro 10mg PO daily was started--pt refuses -Dr Ibarra suggested starting zoloft but pt prefers not to take -Continue home dose xanax PRN (6) FEN/GI/PPx Status: Acute Plan: Fluids: PO fluids Electrolytes: wnl, will replete, and monitor BMP daily Nutrition: Heart healthy diet GI: not indicated PPx: Per neurology, coumadin and heparin Tylenol 650mg PO q6h for fever; pain 1-3 Jayde-colace 1 tab PO BID Bowel regimen PRN Zofran 4mg IV q6h IV nausea Pain: as per above, holding home tramadol 50mg PO q6h pain 4-10 Sleep: Zolpidem 5mg PO qhs (Rajan Dubois MD, R3) Problem Qualifiers (1) CVA (cerebral vascular accident): Qualified Codes: I63.22 - Cerebral infarction due to unspecified occlusion or stenosis of basilar artery (2) Hypertension: Qualified Codes: I10 - Essential (primary) hypertension Rajan Dubois MD, R3 Jun 26, 2017 14:06 Jasmin Leiva MD Jun 27, 2017 15:01
[2017-06-26] MEDS ORDERED: WARFARIN SOD 10 MG TAB PO ONE (16:00)
[2017-06-26] MEDS ORDERED: MIDAZOLAM HCL 5 MG/ML VIAL (1 ML) ONE (16:17)
[2017-06-26] MEDS ORDERED: POVIDONE IODINE 5% (ANTISEPSIS KIT) 4 APPLICATIONS EACH NARE SCH (16:30)
[2017-06-26] MEDS ORDERED: CHLORHEXIDINE GLUCONATE 2 % 1 PACK (2 CLOTHS) TOPICAL SCH (16:30)
[2017-06-26] MEDS ORDERED: ceFAZolin 2 GM PREMIX 50 ML IV SCH (16:30)
[2017-06-26] MEDS ORDERED: MUPIROCIN 2% OINT 1 APPLIC/GM SYR NASAL SCH (16:30)
--- NOTE | 2017-06-26 17:02 | PD.CARD.PN ---
Subjective Subjective Remarks Asked to see pt to insert loop recorder for occult afib diagnosis Objective Medications Current Medications Medications (Trade) Dose Ordered Sig/Rob Route Start Time Stop Time Status Last Admin Heparin Sodium/ Dextrose 250 ml @ 12 mls/hr TITRATE PRN IV 06/21/17 12:45 06/26/17 05:41 (NS Flush) 2 ml UNSCH PRN IV FLUSH 06/21/17 17:00 (NS Flush) 2 ml BID IV FLUSH 06/21/17 21:00 06/25/17 21:02 (Tylenol) 650 mg Q4H PRN PO 06/21/17 17:00 (Zofran Inj) 4 mg Q6H PRN IVP 06/21/17 17:00 06/23/17 14:05 (Ambien) 5 mg HS PRN PO 06/21/17 17:00 06/25/17 21:06 (Narcan Inj) 0.4 mg UNSCH PRN IV PUSH 06/21/17 17:00 (Jayde-Colace) 1 tab BID PO 06/21/17 21:00 06/22/17 13:52 (Milk Of Magnesia Liq) 30 ml Q12H PRN PO 06/21/17 17:00 (Senokot) 17.2 mg Q12H PRN PO 06/21/17 17:00 (Dulcolax Supp) 10 mg DAILY PRN RECTAL 06/21/17 17:00 (Lactulose Liq) 30 ml DAILY PRN PO 06/21/17 17:00 (Lipitor) 40 mg HS PO 06/21/17 21:00 06/25/17 21:03 (Synthroid) 75 mcg DAILY@0600 PO 06/22/17 06:00 06/26/17 05:35 Phenylephrine HCl 80 mg/Sodium Chloride 500 ml @ 15 mls/hr TITRATE PRN IV 06/22/17 13:00 (Brethine Inj) 1 mg UNSCH PRN SQ 06/22/17 13:00 (Xanax) 0.25 mg Q8H PRN PO 06/24/17 11:15 06/26/17 07:32 (Zoloft) 25 mg DAILY PO 06/25/17 09:00 (Pill Splitter) 1 ea UNSCH PRN OTHER 06/25/17 08:00 (Cozaar) 25 mg BID@0600,1800 PO 06/25/17 18:00 06/26/17 05:36 (Roxicodone) 2.5 mg Q8H PRN PO 06/25/17 15:30 Future hold 06/26/17 05:35 (Imodium) 2 mg Q6H PRN PO 06/26/17 12:45 (Coumadin) 5 mg DAILY@1600 PO 06/27/17 16:00 (KCl) 50 meq ONCE ONCE PO 06/26/17 17:30 06/26/17 17:31 Cefazolin Sodium/ Dextrose 50 ml @ 100 mls/hr ROLLER INSPECTOR IV 06/26/17 16:30 06/29/17 16:29 (Betadine 5% Antisepsis Kit) 2 applic ROLLER INSPECTOR EACH NARE 06/26/17 16:30 06/29/17 16:29 (Bactroban Nasal 2% Oint) 1 applic ROLLER INSPECTOR NASAL 06/26/17 16:30 06/29/17 16:29 (Chlorhexidine 2% Cloth) 3 pack ROLLER INSPECTOR TOPICAL 06/26/17 16:30 06/29/17 16:29 Vital Signs / I&O Vital Signs Date Time Temp Pulse Resp B/P (MAP) Pulse Ox O2 Delivery O2 Flow Rate FiO2 06/26/17 12:13 71 06/26/17 12:00 98.2 76 16 145/96 (112) 95 06/26/17 08:50 73 06/26/17 08:34 98.5 95 20 149/97 (114) 98 06/26/17 05:33 98.0 82 18 146/89 (108) 96 06/26/17 00:47 98.1 72 18 149/82 (104) 96 06/25/17 21:22 98.3 76 18 123/73 (90) 95 06/25/17 20:00 64 06/25/17 17:14 65 I/O 06/25/17 06/25/17 06/25/17 06/26/17 06/26/17 06/26/17 06:59 14:59 22:59 06:59 14:59 22:59 Intake Total 480 ml 100 ml Balance 480 ml 100 ml Intake Oral 480 ml IV Total 100 ml # Voids 4 2 4 # Bowel Movements 1 Physical Exam GENERAL: This is a well-nourished, well-developed patient, in no apparent distress. MUSCULOSKELETAL: Extremities without clubbing, cyanosis, or edema. NEURO: Alert & Oriented x4 to person, place, time, situation. Moves all ext x4 Laboratory Laboratory Tests Test 06/26/17 05:45 White Blood Count 6.0 TH/MM3 Red Blood Count 4.41 MIL/MM3 Hemoglobin 14.5 GM/DL Hematocrit 41.3 % Mean Corpuscular Volume 93.7 FL Mean Corpuscular Hemoglobin 32.9 PG Mean Corpuscular Hemoglobin Concent 35.1 % Red Cell Distribution Width 13.9 % Platelet Count 235 TH/MM3 Mean Platelet Volume 6.9 FL Prothrombin Time 14.4 SEC Prothromb Time International Ratio 1.4 RATIO Activated Partial Thromboplast Time 55.1 SEC Blood Urea Nitrogen 7 MG/DL Creatinine 0.61 MG/DL Random Glucose 123 MG/DL Calcium Level 9.4 MG/DL Sodium Level 145 MEQ/L Potassium Level 3.2 MEQ/L Chloride Level 109 MEQ/L Carbon Dioxide Level 28.7 MEQ/L Anion Gap 7 MEQ/L Estimat Glomerular Filtration Rate 100 ML/MIN Imaging Last Impressions Head Magnetic Resonance Angiography 06/22/17 0000 Signed Impressions: Service Date/Time: Thursday, June 22, 2017 09:49 - CONCLUSION: MRA demonstrates an elongated small area of absent flow in the posterolateral aspect of the basilar artery, similar to the defect seen on CTA. This does not restrict flow and there is a normal pattern of flow in the posterior cerebral and superior cerebellar vessels. A differential considerations include clot and eccentric atheroma. Marco A Luong MD Brain MRI 06/21/17 1254 Signed Impressions: Service Date/Time: May 15:05 - CONCLUSION: No acute intracranial findings Andrew Lewis MD Neck CTA 06/21/17 1209 Signed Impressions: Service Date/Time: May 12:20 - CONCLUSION: Negative CTA of the carotids without local luminal narrowing or dissection. Marco A Luong MD Head CTA 06/21/17 1209 Signed Impressions: Service Date/Time: May 12:20 - CONCLUSION: Nonocclusive finding in the basilar artery with differential considerations as above. Andrew Lewis MD Head CT 06/21/17 0000 Signed Impressions: Service Date/Time: May 12:06 - CONCLUSION: 1. Encephalomalacic infarct involving the medial left occipital cortex. 2. Previous suboccipital craniotomy for Chiari malformation. 3. The left occipital cortex is new compared to previous CT dated 05/16/17. Giovanni Stapleton MD Assessment and Plan Problem List: (1) CVA (cerebral vascular accident) ICD Codes: I63.9 - Cerebral infarction, unspecified Status: Acute Assessment and Plan Ok to d/c home from cardiac standpoint anytime after loop inserted; will be happy to follow it in my office and she can see me in 1-2 weeks. Ok to resume warfarin/heparin after loop inserted. Problem Qualifiers (1) CVA (cerebral vascular accident): Qualified Codes: I63.22 - Cerebral infarction due to unspecified occlusion or stenosis of basilar artery Arun Gilmore MD Jun 26, 2017 17:02
[2017-06-26] MEDS ORDERED: POTASSIUM CHLORIDE 10 MEQ CONTROLLED RELEASE TAB PO ONE (17:30)
--- NOTE | 2017-06-26 17:30 | MA ---
cc: Arun Gilmore MD,Timmy Ibarra,Ben Perez MD 06/26/2017 INDICATION FOR PROCEDURE: CVA. PROCEDURES PERFORMED: 1. 15 minutes moderate IV sedation. 2. Loop recorder insertion. DESCRIPTION OF PROCEDURE: The patient was brought to the DOC unit in the post absorptive state. After informed consent was obtained, 2 mg of Versed and 25 mcg of fentanyl was given for moderate IV sedation. Next, [employer] LIN[employer] loop recorder was inserted subcutaneously to the left chest. The patient tolerated the procedure well without any apparent complications. Tachybrady pause and atrial fibrillation detection was enabled. The serial number was [id number]. The initial R-wave was 0.33 millivolts. Arun Gilmore MD RYLEE/FRANCISCO , 05:12 PM , 05:29 PM
[2017-06-26] MEDS: ATORVASTATIN 40 MG TAB PO SCH (20:54)
[2017-06-27] VITALS (9 sets, daily range): BP systolic 112–174; BP diastolic 64–83; PULSE 67–106; RESP 18; TEMP 97.6–98.6; O2SAT 95–98
[2017-06-27] MEDS: HEPARIN-D5W 25,000 U/250 ML 250 ML IV PRN (06:05)
[2017-06-27] MEDS: LOSARTAN 25 MG TAB PO SCH ×2 (06:07→17:09)
[2017-06-27] MEDS: LEVOTHYROXINE SODIUM 75 MCG TAB PO SCH (06:07)
[2017-06-27] MEDS: ALPRAZolam 0.25 MG TAB PO PRN ×2 (08:00→21:18)
[2017-06-27] MEDS: SERTRALINE HCL 50 MG TAB PO SCH (08:00)
[2017-06-27] MEDS: SODIUM CHLORIDE 0.9% FLUSH 10 ML FLUSH IV FLUSH SCH ×2 (08:00→21:16)
[2017-06-27] MEDS: DOCUSATE SODIUM 50 MG/SENNA 8.6 MG TAB PO SCH ×2 (08:00→21:00)
[2017-06-27 09:26] LABS: INTERNATIONAL NORMALIZED RATIO 1.4 RATIO; PROTHROMBIN TIME - PATIENT 14.3 SEC (9.8-11.6)
[2017-06-27 09:51] LABS: BICARBONATE 27.5 MEQ/L (21.0-32.0); CALCIUM 9.4 MG/DL (8.5-10.1); CREATININE 0.58 MG/DL (0.50-1.00)
--- NOTE | 2017-06-27 10:03 | HHI.PR ---
Subjective Remarks sr still Objective Vital Signs Date Time Temp Pulse Resp B/P (MAP) Pulse Ox O2 Delivery O2 Flow Rate FiO2 06/27/17 08:26 98.3 77 18 174/83 (113) 95 06/27/17 05:15 98.6 82 18 169/80 (109) 95 06/27/17 00:29 98.0 106 18 146/81 (102) 98 06/26/17 21:03 98.0 83 18 117/61 (79) 100 06/26/17 12:13 71 06/26/17 12:00 98.2 76 16 145/96 (112) 95 I/O 06/26/17 06/26/17 06/26/17 06/27/17 06/27/17 06/27/17 07:00 15:00 23:00 07:00 15:00 23:00 Intake Total 80 ml Balance 80 ml IV Total 80 ml # Voids 4 2 4 1 Result Diagram: 06/26/1745 06/27/1728 Objective Remarks vff face sym awake alert moving r side nl x old finding left same as prior also doing great some anxiety no change again Assessment and Plan Assessment and Plan imp mri no cva clot in basilar on hep and coumadin inr yet to bump not eating greens oob'' repeat mra cow clot still present on review of report and films ambulate with PT would like to get loop placed nneds inr>1.9 b4 dc try zoloft consider cymbalta in future with aches and pains i dced tramadol contraindicated in prior cortical cva as lowers sz risk 06/26/17 for loop today make sure she gets coumadin dose tonight inr 1.4 refuses zoloft wants xanax i would rec due to addiction potential of xanax guide her towards zoloft kelsea neg mra cow i reviewed and there is still clot in the basilar artery on it plan is loop and dc when inr 2.0 06/27/17 loop in inr 1.4 probably 10 coumadin tonight? defer to med team Ben Ibarra MD Jun 27, 2017 10:03
--- NOTE | 2017-06-27 11:42 | HHI.FPPN ---
Subjective Remarks NAEON. Ms Stoddard had a loop recorder installed yesterday by Dr Gilmore. Pt INR still 1.4. No CP, SOB, dizziness, N/V/D, or DVT pain. Pt concerned about elevated BP and wants to work more with PT so she can DC home when INR is therapeutic. (Amando Bill MD R1) Objective Vitals Vital Signs Date Time Temp Pulse Resp B/P (MAP) Pulse Ox O2 Delivery O2 Flow Rate FiO2 06/27/17 08:26 98.3 77 18 174/83 (113) 95 06/27/17 07:44 67 06/27/17 05:15 98.6 82 18 169/80 (109) 95 06/27/17 00:29 98.0 106 18 146/81 (102) 98 06/26/17 21:03 98.0 83 18 117/61 (79) 100 06/26/17 12:13 71 06/26/17 12:00 98.2 76 16 145/96 (112) 95 I/O 06/26/17 06/26/17 06/26/17 06/27/17 06/27/17 06/27/17 07:00 15:00 23:00 07:00 15:00 23:00 Intake Total 80 ml Balance 80 ml IV Total 80 ml # Voids 4 2 4 1 (Amando Bill MD R1) Result Diagram: 06/26/17 0545 06/27/17 0728 Other Results Loop Recorder placed by Dr Gilmore 06/26/17 Objective Remarks GENERAL: This is a well-nourished, well-developed middle-aged female sitting in bedside chair, no acute distress SKIN: No rashes, ecchymoses or lesions. Cool and dry. HEAD: Atraumatic. Normocephalic. EYES: PERRLA/EOMI. No scleral icterus. No injection or drainage. ENT: Nose without drainage. Throat without erythema. Uvula midline. Airway patent. MMM. NECK: Trachea midline. No JVD or lymphadenopathy. Supple, nontender, no meningeal signs. CARDIOVASCULAR: Regular rate and rhythm without murmurs, gallops, or rubs. RESPIRATORY: Clear to auscultation. Breath sounds equal bilaterally. No wheezes , rales, or rhonchi. GASTROINTESTINAL: Abdomen soft, non-tender, nondistended. MUSCULOSKELETAL: Extremities without clubbing or cyanosis; No edema. No calf tenderness. LLE 4/5, RLE 4/5 strength; RUE 4/5 and LUE 4/5 strength. NEUROLOGICAL: Awake, alert and oriented x3. Cranial nerves II through XII intact. Normal speech. Mild contracture of bilateral hand PIPs 2-5 (chronic) Medications and IVs Current Medications Medications (Trade) Dose Ordered Sig/Rob Route Start Time Stop Time Status Last Admin Heparin Sodium/ Dextrose 250 ml @ 12 mls/hr TITRATE PRN IV 06/21/17 12:45 06/27/17 06:05 (NS Flush) 2 ml UNSCH PRN IV FLUSH 06/21/17 17:00 (NS Flush) 2 ml BID IV FLUSH 06/21/17 21:00 06/26/17 20:54 (Tylenol) 650 mg Q4H PRN PO 06/21/17 17:00 (Zofran Inj) 4 mg Q6H PRN IVP 06/21/17 17:00 06/23/17 14:05 (Ambien) 5 mg HS PRN PO 06/21/17 17:00 06/25/17 21:06 (Narcan Inj) 0.4 mg UNSCH PRN IV PUSH 06/21/17 17:00 (Jayde-Colace) 1 tab BID PO 06/21/17 21:00 06/27/17 08:00 (Milk Of Magnesia Liq) 30 ml Q12H PRN PO 06/21/17 17:00 (Senokot) 17.2 mg Q12H PRN PO 06/21/17 17:00 (Dulcolax Supp) 10 mg DAILY PRN RECTAL 06/21/17 17:00 (Lactulose Liq) 30 ml DAILY PRN PO 06/21/17 17:00 (Lipitor) 40 mg HS PO 06/21/17 21:00 06/26/17 20:54 (Synthroid) 75 mcg DAILY@0600 PO 06/22/17 06:00 06/27/17 06:07 Phenylephrine HCl 80 mg/Sodium Chloride 500 ml @ 15 mls/hr TITRATE PRN IV 06/22/17 13:00 (Brethine Inj) 1 mg UNSCH PRN SQ 06/22/17 13:00 (Xanax) 0.25 mg Q8H PRN PO 06/24/17 11:15 06/27/17 08:00 (Zoloft) 25 mg DAILY PO 06/25/17 09:00 (Pill Splitter) 1 ea UNSCH PRN OTHER 06/25/17 08:00 (Roxicodone) 2.5 mg Q8H PRN PO 06/25/17 15:30 Future hold 06/27/17 06:09 (Imodium) 2 mg Q6H PRN PO 06/26/17 12:45 (Coumadin) 5 mg DAILY@1600 PO 06/27/17 16:00 Future Hold Cefazolin Sodium/ Dextrose 50 ml @ 100 mls/hr BURLAPPER IV 06/26/17 16:30 06/29/17 16:29 06/26/17 17:22 (Betadine 5% Antisepsis Kit) 2 applic BURLAPPER EACH NARE 06/26/17 16:30 06/29/17 16:29 (Bactroban Nasal 2% Oint) 1 applic BURLAPPER NASAL 06/26/17 16:30 06/29/17 16:29 (Chlorhexidine 2% Cloth) 3 pack BURLAPPER TOPICAL 06/26/17 16:30 06/29/17 16:29 (Coumadin) 10 mg ONCE ONCE PO 06/27/17 16:00 06/27/17 16:01 (Cozaar) 50 mg BID@0600,1800 PO 06/27/17 18:00 (Amando Bill MD R1) Urinary Catheter: No (Amando Bill MD R1) A/P Assessment and Plan 61YO female with PMHx CVA in April 2017, syringomyelia, DM, HTN, HLD presents with stroke alert and imaging showing 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 Neurology and cardiology consulted. Loop recorder installed by Cardiology 06/26 and have signed off with f/u as outpt. Neurology still awaiting therapeutic INR and current AC on coumadin and heparin until INR> 2.0. Discharge Planning Discharge pending INR level >2.0 per neurology. (Amando Bill MD R1) Attending Attestation The exam, history, and the medical decision-making described in the above note were completed with the assistance of the resident physician. I reviewed and agree with the findings presented. I attest that I had a [id number] encounter with the patient on the same day, and personally performed and documented my assessment and findings in the medical record. Patient is clinically at her baseline prior to admission. She is overall feeling well -- no new neurologic changes noted, no dizziness. She is tolerating and doing PT well. No acute events. On exam she is back to her baseline as well with no new deficits. Cards -- no arrhythmia noted. Continue her current plan of care. Following INR -- if no movement in INR tomorrow consider increasing the dose cautiously. (Jasmin Leiva MD) Problem List: (1) CVA (cerebral vascular accident) ICD Codes: I63.9 - Cerebral infarction, unspecified Status: Acute Plan: MRA this morning showing basilar artery atheroma vs non-occluding clot; pt stable with most functionality restored (feels like she is back to baseline) ; able to ambulate, speak normally. -Neurology consulted -Stop Plavix -Continue Coumadin--check INR daily. Okay to d/c when INR >2.0 and okay with neurology --INR 1.4 today; given coumadin 10mg PO yesterday afternoon following loop recorder placement; per nomogram, holding 5mg dose and giving 10mg PO this afternoon; follow w/INR check in AM -ASA 325mg -Consult Cardiology for SOCO--> normal EF. No SHAHNAZ thrombus. No PFO -Neuro checks -OOB as contreras -PT/OT/ST (PT order updated to PT TID as pt is concerned she has only seen PT twice so far) (2) Hypertension ICD Codes: I10 - Hypertension Status: Acute Plan: BP to 169/80 this morning. Ok per neurology to manage BP -Losartan 50 mg PO BID -Hold if SBP <110 OR DBP <65 -Hydralazine 10mg PO q8h if SBP>180 OR DBP>100 (3) Hypothyroid ICD Codes: E03.9 - Hypothyroidism, unspecified Status: Chronic Plan: Continue home dose Levothyroxine 75 mcg PO daily (4) Chronic myofascial pain ICD Codes: M79.1 - Myalgia; G89.29 - Other chronic pain Status: Chronic Plan: -Hold xanaflex -DC'd home tramadol 50mg q6h PO per Dr Ibarra Switch from tramadol to Roxicodone 2.5 mg by mouth every 8 hours. Her home tramadol was a 5mg morphine equivalent and the 2.5mg oxycodone is 3.75mg morphine equivalent -- so we are not escalating her dose. DWPT in detail and to watch for signs of sedation. She is agreeable and understands. (5) Anxiety ICD Codes: F41.9 - Anxiety disorder, unspecified Plan: Pt takes xanax at home -Had diarrhea when Lexapro 10mg PO daily was started--pt refuses -Dr Ibarra suggested starting zoloft but pt prefers not to take -Continue home dose xanax PRN -Discussed w/pt about trial of SSRI/antidepressant upon DC with goal of eventual discontinuation of xanax; states she is agreeable (6) FEN/GI/PPx Status: Acute Plan: Fluids: PO fluids Electrolytes: wnl, will replete, and monitor BMP daily Nutrition: Heart healthy diet w/Ensure vanilla supplement each meal GI: not indicated PPx: Per neurology, coumadin and heparin Tylenol 650mg PO q6h for fever; pain 1-3 Jayde-colace 1 tab PO BID Bowel regimen PRN Zofran 4mg IV q6h IV nausea Pain: as per above, holding home tramadol 50mg PO q6h pain 4-10 Sleep: Zolpidem 5mg PO qhs (Amando Bill MD R1) Problem Qualifiers (1) CVA (cerebral vascular accident): Qualified Codes: I63.22 - Cerebral infarction due to unspecified occlusion or stenosis of basilar artery (2) Hypertension: Qualified Codes: I10 - Essential (primary) hypertension Amando Bill MD R1 Jun 27, 2017 11:42 Jasmin Leiva MD Jun 27, 2017 15:52
[2017-06-27] MEDS ORDERED: hydrALAZINE HCL 10 MG TAB PO PRN (12:00)
[2017-06-27] MEDS ORDERED: WARFARIN SOD 5 MG TAB PO SCH (16:00)
[2017-06-27] MEDS ORDERED: WARFARIN SOD 10 MG TAB PO ONE ×2 (16:00)
[2017-06-27] MEDS: ATORVASTATIN 40 MG TAB PO SCH (21:17)
[2017-06-27] MEDS: ZOLPIDEM TARTRATE 5 MG TAB PO PRN (21:17)
[2017-06-28] VITALS (8 sets, daily range): BP systolic 119–153; BP diastolic 56–86; PULSE 69–94; RESP 18–20; TEMP 97–98.2; O2SAT 93–98
[2017-06-28] MEDS: LOSARTAN 25 MG TAB PO SCH ×2 (05:29→17:13)
[2017-06-28] MEDS: ALPRAZolam 0.25 MG TAB PO PRN ×2 (05:29→17:16)
[2017-06-28] MEDS: LEVOTHYROXINE SODIUM 75 MCG TAB PO SCH (05:29)
[2017-06-28] MEDS: HEPARIN-D5W 25,000 U/250 ML 250 ML IV PRN (05:31)
[2017-06-28 07:10] LABS: INTERNATIONAL NORMALIZED RATIO 1.7 RATIO; PROTHROMBIN TIME - PATIENT 16.7 SEC (9.8-11.6)
[2017-06-28] MEDS: SODIUM CHLORIDE 0.9% FLUSH 10 ML FLUSH IV FLUSH SCH ×2 (08:29→20:22)
[2017-06-28] MEDS: DOCUSATE SODIUM 50 MG/SENNA 8.6 MG TAB PO SCH ×2 (08:29→20:23)
--- NOTE | 2017-06-28 15:39 | HHI.FPPN ---
Subjective Remarks Ms Stoddard had no acute events overnight. Her INR is 1.7 today and she worked well with PT yesterday. No other complaints today. Objective Vitals Vital Signs Date Time Temp Pulse Resp B/P (MAP) Pulse Ox O2 Delivery O2 Flow Rate FiO2 06/28/17 12:26 98.2 88 20 132/67 (88) 93 06/28/17 08:30 97.9 75 18 153/86 (108) 94 06/28/17 04:00 135/76 (95) 06/28/17 00:00 97.0 84 18 134/85 (101) 98 06/27/17 20:00 97.6 82 18 112/70 (84) 95 06/27/17 20:00 97.6 82 18 112/70 (84) 96 06/27/17 16:27 98.3 70 18 116/80 (92) 98 06/27/17 15:50 73 I/O 06/27/17 06/27/17 06/27/17 06/28/17 06/28/17 06/28/17 07:00 15:00 23:00 07:00 15:00 23:00 Output Total 850 ml Balance -850 ml Output Urine Total 850 ml # Voids 4 3 1 4 # Bowel Movements 1 Result Diagram: 06/26/17 0545 06/27/17 07 Objective Remarks GENERAL: This is a well-nourished, well-developed middle-aged female sitting in bedside chair in no acute distress, less anxious. SKIN: No rashes, ecchymoses or lesions. Cool and dry. HEAD: Atraumatic. Normocephalic. EYES: PERRLA/EOMI. No scleral icterus. No injection or drainage. ENT: Nose without drainage. Throat without erythema. Uvula midline. Airway patent. MMM. NECK: Trachea midline. No JVD or lymphadenopathy. Supple, nontender, no meningeal signs. CARDIOVASCULAR: Regular rate and rhythm without murmurs, gallops, or rubs. RESPIRATORY: Clear to auscultation. Breath sounds equal bilaterally. No wheezes , rales, or rhonchi. GASTROINTESTINAL: Abdomen soft, non-tender, nondistended. MUSCULOSKELETAL: Extremities without clubbing or cyanosis; No edema. No calf tenderness. LLE 4/5, RLE 4/5 strength; RUE 4/5 and LUE 4/5 strength. NEUROLOGICAL: Awake, alert and oriented x3. Cranial nerves II through XII intact. Normal speech. Mild contracture of bilateral hand PIPs 2-5 (chronic) Medications and IVs Current Medications Medications (Trade) Dose Ordered Sig/Rob Route Start Time Stop Time Status Last Admin Heparin Sodium/ Dextrose 250 ml @ 12 mls/hr TITRATE PRN IV 06/21/17 12:45 06/28/17 05:31 (NS Flush) 2 ml UNSCH PRN IV FLUSH 06/21/17 17:00 (NS Flush) 2 ml BID IV FLUSH 06/21/17 21:00 06/27/17 21:16 (Tylenol) 650 mg Q4H PRN PO 06/21/17 17:00 (Zofran Inj) 4 mg Q6H PRN IVP 06/21/17 17:00 06/23/17 14:05 (Ambien) 5 mg HS PRN PO 06/21/17 17:00 06/27/17 21:17 (Narcan Inj) 0.4 mg UNSCH PRN IV PUSH 06/21/17 17:00 (Jayde-Colace) 1 tab BID PO 06/21/17 21:00 06/27/17 08:00 (Milk Of Magnesia Liq) 30 ml Q12H PRN PO 06/21/17 17:00 (Senokot) 17.2 mg Q12H PRN PO 06/21/17 17:00 (Dulcolax Supp) 10 mg DAILY PRN RECTAL 06/21/17 17:00 (Lactulose Liq) 30 ml DAILY PRN PO 06/21/17 17:00 (Lipitor) 40 mg HS PO 06/21/17 21:00 06/27/17 21:17 (Synthroid) 75 mcg DAILY@0600 PO 06/22/17 06:00 06/28/17 05:29 Phenylephrine HCl 80 mg/Sodium Chloride 500 ml @ 15 mls/hr TITRATE PRN IV 06/22/17 13:00 (Brethine Inj) 1 mg UNSCH PRN SQ 06/22/17 13:00 (Xanax) 0.25 mg Q8H PRN PO 06/24/17 11:15 06/28/17 05:29 (Pill Splitter) 1 ea UNSCH PRN OTHER 06/25/17 08:00 (Roxicodone) 2.5 mg Q8H PRN PO 06/25/17 15:30 Future hold 06/28/17 12:29 (Imodium) 2 mg Q6H PRN PO 06/26/17 12:45 (Coumadin) 5 mg DAILY@1600 PO 06/27/17 16:00 Future Hold Cefazolin Sodium/ Dextrose 50 ml @ 100 mls/hr ACCOUNTANT SYSTEMS IV 06/26/17 16:30 06/29/17 16:29 06/26/17 17:22 (Betadine 5% Antisepsis Kit) 2 applic ACCOUNTANT SYSTEMS EACH NARE 06/26/17 16:30 06/29/17 16:29 (Bactroban Nasal 2% Oint) 1 applic ACCOUNTANT SYSTEMS NASAL 06/26/17 16:30 06/29/17 16:29 (Chlorhexidine 2% Cloth) 3 pack ACCOUNTANT SYSTEMS TOPICAL 06/26/17 16:30 06/29/17 16:29 (Cozaar) 50 mg BID@0600,1800 PO 06/27/17 18:00 06/28/17 05:29 (Apresoline) 10 mg Q8HR PRN PO 06/27/17 12:00 (Coumadin) 10 mg ONCE ONCE PO 06/28/17 16:00 06/28/17 16:01 Urinary Catheter: No A/P Assessment and Plan 61YO female with PMHx CVA in April 2017, syringomyelia, DM, HTN, HLD presents with stroke alert and imaging showing 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 Neurology and cardiology consulted. Loop recorder installed by Cardiology/Dr Gilmore 06/26 and have signed off with f/u as outpt in 2 weeks. Neurology still awaiting therapeutic INR and current AC on coumadin and heparin until INR>2.0. Discharge Planning Discharge pending INR level >2.0 per neurology. Problem List: (1) CVA (cerebral vascular accident) ICD Codes: I63.9 - Cerebral infarction, unspecified Status: Acute Plan: MRA this morning showing basilar artery with non-occluding clot; pt stable and back to baseline; able to ambulate, speak normally. -Neurology consulted -Stop Plavix -Continue Coumadin--check INR daily. Okay to d/c when INR >2.0 and okay with neurology --INR 1.7 today; given coumadin 10mg PO yesterday afternoon; per nomogram, holding 5mg dose and giving 10mg PO this afternoon; INR in AM -ASA 325mg -Consult Cardiology; SOCO with normal EF. No SHAHNAZ thrombus. No PFO -Neuro checks -OOB ad contreras -PT/OT/ST--Plan for DC w/HHPT/OT/nursing (2) Hypertension ICD Codes: I10 - Hypertension Status: Acute Plan: BP with better control; isolated 153/86 this morning. Ok per neurology to manage BP -Losartan 50 mg PO BID -Hold if SBP <110 OR DBP <65 -Hydralazine 10mg PO q8h if SBP>180 OR DBP>100 (3) Hypothyroid ICD Codes: E03.9 - Hypothyroidism, unspecified Status: Chronic Plan: Continue home dose Levothyroxine 75 mcg PO daily (4) Chronic myofascial pain ICD Codes: M79.1 - Myalgia; G89.29 - Other chronic pain Status: Chronic Plan: -Hold xanaflex -DC'd home tramadol 50mg q6h PO per Dr Ibarra Switch from tramadol to Roxicodone 2.5 mg by mouth every 8 hours. Her home tramadol was a 5mg morphine equivalent and the 2.5mg oxycodone is 3.75mg morphine equivalent -- so we are not escalating her dose. DWPT in detail and to watch for signs of sedation. She is agreeable and understands. (5) Anxiety ICD Codes: F41.9 - Anxiety disorder, unspecified Plan: Pt takes xanax at home -Had diarrhea when Lexapro 10mg PO daily was started--pt refuses -Dr Ibarra suggested starting zoloft but pt prefers not to take -Continue home dose xanax PRN -Discussed w/pt about trial of SSRI/antidepressant upon DC with goal of eventual discontinuation of xanax; states she is agreeable to this plan (6) FEN/GI/PPx Status: Acute Plan: Fluids: PO fluids Electrolytes: wnl, will replete, and monitor BMP daily Nutrition: Heart healthy diet w/Ensure vanilla supplement each meal GI: not indicated PPx: Per neurology, coumadin and heparin Tylenol 650mg PO q6h for fever; pain 1-3 Jayde-colace 1 tab PO BID Bowel regimen PRN Zofran 4mg IV q6h IV nausea Pain: as per above, holding home tramadol 50mg PO q6h pain 4-10 Sleep: Zolpidem 5mg PO qhs As per above plan to DC w/HHPT/OT and nursing for coumadin Problem Qualifiers (1) CVA (cerebral vascular accident): Qualified Codes: I63.22 - Cerebral infarction due to unspecified occlusion or stenosis of basilar artery (2) Hypertension: Qualified Codes: I10 - Essential (primary) hypertension Amando Bill MD R1 Jun 28, 2017 15:39
[2017-06-28] MEDS ORDERED: WARFARIN SOD 10 MG TAB PO ONE (16:00)
[2017-06-28] MEDS: ZOLPIDEM TARTRATE 5 MG TAB PO PRN (20:23)
[2017-06-28] MEDS: ATORVASTATIN 40 MG TAB PO SCH (20:23)
[2017-06-29] VITALS (9 sets, daily range): BP systolic 116–148; BP diastolic 67–83; PULSE 69–89; RESP 14–19; TEMP 97.7–98.5; O2SAT 94–97
[2017-06-29] MEDS: LOSARTAN 25 MG TAB PO SCH ×2 (06:15→16:51)
[2017-06-29] MEDS: LEVOTHYROXINE SODIUM 75 MCG TAB PO SCH (06:16)
[2017-06-29] MEDS: SODIUM CHLORIDE 0.9% FLUSH 10 ML FLUSH IV FLUSH SCH ×2 (07:02→21:15)
[2017-06-29] MEDS: DOCUSATE SODIUM 50 MG/SENNA 8.6 MG TAB PO SCH ×2 (07:09→21:00)
[2017-06-29] MEDS: HEPARIN-D5W 25,000 U/250 ML 250 ML IV PRN (07:15)
[2017-06-29 08:40] LABS: INTERNATIONAL NORMALIZED RATIO 1.8 RATIO; PROTHROMBIN TIME - PATIENT 18.7 SEC (9.8-11.6)
--- NOTE | 2017-06-29 08:45 | HHI.PR ---
Subjective Remarks sr still loop in not plugged in Objective Vital Signs Date Time Temp Pulse Resp B/P (MAP) Pulse Ox O2 Delivery O2 Flow Rate FiO2 06/29/17 08:37 78 06/29/17 06:19 98.2 74 14 135/77 (96) 95 06/29/17 00:15 98.1 69 19 129/67 (87) 97 06/28/17 21:45 97.7 72 18 130/65 (86) 96 06/28/17 20:30 69 06/28/17 16:58 97.9 88 20 119/56 (77) 95 06/28/17 16:20 94 06/28/17 12:26 98.2 88 20 132/67 (88) 93 I/O 06/28/17 06/28/17 06/28/17 06/29/17 06/29/17 06/29/17 07:00 15:00 23:00 07:00 15:00 23:00 Intake Total 1620 ml 1000 ml Output Total 850 ml Balance -850 ml 1620 ml 1000 ml Intake Oral 1620 ml 1000 ml Output Urine Total 850 ml # Voids 4 12 10 # Bowel Movements 1 1 0 Result Diagram: 06/26/17 0545 06/27/17 0728 Objective Remarks vff face sym awake alert moving r side nl x old finding left same as prior also doing great some anxiety no change again stable Assessment and Plan Assessment and Plan imp mri no cva clot in basilar on hep and coumadin inr yet to bump not eating greens oob'' repeat mra cow clot still present on review of report and films ambulate with PT would like to get loop placed nneds inr>1.9 b4 dc try zoloft consider cymbalta in future with aches and pains i dced tramadol contraindicated in prior cortical cva as lowers sz risk 06/26/17 for loop today make sure she gets coumadin dose tonight inr 1.4 refuses zoloft wants xanax i would rec due to addiction potential of xanax guide her towards zoloft kelsea neg mra cow i reviewed and there is still clot in the basilar artery on it plan is loop and dc when inr 2.0 06/29/17 loop in inr 1.8 maybe needs 12.5 coumadin tonight make sure not eating greens unclear if loop needs plugged in here in hospital someone should call dr mann and ask him after dc will need daily inr for few days would keep her e until inr >1.9 slowly getting there fu dr ashley in two weeks o/p if dced over weekend still has clot in basilar Ben Ibarra MD Jun 29, 2017 08:45
[2017-06-29] MEDS ORDERED: COZA50TA PO (09:16)
[2017-06-29] MEDS: ALPRAZolam 0.25 MG TAB PO PRN ×2 (12:22→21:18)
--- NOTE | 2017-06-29 13:29 | HHI.FPPN ---
Subjective Remarks Ms Stoddard had no acute events overnight. 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 She wants to know how to operate the loop recorder and we spoke with Dr Gilmore during the interview to clarify instructions for use, dressing changes and showering. She will follow up with him, Dr Sanders, PCP, and Dr Vaughan, her neurologist, in one week. No complaints today and PT worked with her twice yesterday. Discharge is contingent on INR >2.0, HHPT/OT/vocational nursing instructor in place; she has a wheelchair and walker at home; she has to get INR checks for first 3 days after discharge and CM will check to see if the HH vocational nursing instructor can do. Denies CP, SOB, N/V/D, DVT pain. Objective Vitals Vital Signs Date Time Temp Pulse Resp B/P (MAP) Pulse Ox O2 Delivery O2 Flow Rate FiO2 06/29/17 12:44 89 06/29/17 08:37 78 06/29/17 08:00 98.4 79 17 148/72 (97) 94 06/29/17 06:19 98.2 74 14 135/77 (96) 95 06/29/17 00:15 98.1 69 19 129/67 (87) 97 06/28/17 21:45 97.7 72 18 130/65 (86) 96 06/28/17 20:30 69 06/28/17 16:58 97.9 88 20 119/56 (77) 95 06/28/17 16:20 94 I/O 06/28/17 06/28/17 06/28/17 06/29/17 06/29/17 06/29/17 07:00 15:00 23:00 07:00 15:00 23:00 Intake Total 1620 ml 1000 ml Output Total 850 ml Balance -850 ml 1620 ml 1000 ml Intake Oral 1620 ml 1000 ml Output Urine Total 850 ml # Voids 4 12 10 # Bowel Movements 1 1 0 Result Diagram: 06/26/17 0545 06/27/17 0728 Objective Remarks GENERAL: This is a well-nourished, well-developed middle-aged female sitting in bedside chair in no acute distress, less anxious. SKIN: No rashes, ecchymoses or lesions. Cool and dry. HEAD: Atraumatic. Normocephalic. EYES: PERRLA/EOMI. No scleral icterus. No injection or drainage. ENT: Nose without drainage. Throat without erythema. Uvula midline. Airway patent. MMM. NECK: Trachea midline. No JVD or lymphadenopathy. Supple, nontender, no meningeal signs. CARDIOVASCULAR: Regular rate and rhythm without murmurs, gallops, or rubs. RESPIRATORY: Clear to auscultation. Breath sounds equal bilaterally. No wheezes , rales, or rhonchi. GASTROINTESTINAL: Abdomen soft, non-tender, nondistended. MUSCULOSKELETAL: Extremities without clubbing or cyanosis; No edema. No calf tenderness. LLE 4/5, RLE 4/5 strength; RUE 4/5 and LUE 4/5 strength. NEUROLOGICAL: Awake, alert and oriented x3. Cranial nerves II through XII intact. Normal speech. Mild contracture of bilateral hand PIPs 2-5 (chronic) Medications and IVs Current Medications Medications (Trade) Dose Ordered Sig/Rob Route Start Time Stop Time Status Last Admin Heparin Sodium/ Dextrose 250 ml @ 12 mls/hr TITRATE PRN IV 06/21/17 12:45 06/29/17 07:15 (NS Flush) 2 ml UNSCH PRN IV FLUSH 06/21/17 17:00 (NS Flush) 2 ml BID IV FLUSH 06/21/17 21:00 06/28/17 20:22 (Tylenol) 650 mg Q4H PRN PO 06/21/17 17:00 (Zofran Inj) 4 mg Q6H PRN IVP 06/21/17 17:00 06/23/17 14:05 (Ambien) 5 mg HS PRN PO 06/21/17 17:00 06/28/17 20:23 (Narcan Inj) 0.4 mg UNSCH PRN IV PUSH 06/21/17 17:00 (Jayde-Colace) 1 tab BID PO 06/21/17 21:00 06/27/17 08:00 (Milk Of Magnesia Liq) 30 ml Q12H PRN PO 06/21/17 17:00 (Senokot) 17.2 mg Q12H PRN PO 06/21/17 17:00 (Dulcolax Supp) 10 mg DAILY PRN RECTAL 06/21/17 17:00 (Lactulose Liq) 30 ml DAILY PRN PO 06/21/17 17:00 (Lipitor) 40 mg HS PO 06/21/17 21:00 06/28/17 20:23 (Synthroid) 75 mcg DAILY@0600 PO 06/22/17 06:00 06/29/17 06:16 Phenylephrine HCl 80 mg/Sodium Chloride 500 ml @ 15 mls/hr TITRATE PRN IV 06/22/17 13:00 (Brethine Inj) 1 mg UNSCH PRN SQ 06/22/17 13:00 (Xanax) 0.25 mg Q8H PRN PO 06/24/17 11:15 06/29/17 12:22 (Pill Splitter) 1 ea UNSCH PRN OTHER 06/25/17 08:00 (Roxicodone) 2.5 mg Q8H PRN PO 06/25/17 15:30 Future hold 06/29/17 12:22 (Imodium) 2 mg Q6H PRN PO 06/26/17 12:45 (Coumadin) 5 mg DAILY@1600 PO 06/27/17 16:00 Future Hold Cefazolin Sodium/ Dextrose 50 ml @ 100 mls/hr GRID INSPECTOR IV 06/26/17 16:30 06/29/17 16:29 06/26/17 17:22 (Betadine 5% Antisepsis Kit) 2 applic GRID INSPECTOR EACH NARE 06/26/17 16:30 06/29/17 16:29 (Bactroban Nasal 2% Oint) 1 applic GRID INSPECTOR NASAL 06/26/17 16:30 06/29/17 16:29 (Chlorhexidine 2% Cloth) 3 pack GRID INSPECTOR TOPICAL 06/26/17 16:30 06/29/17 16:29 (Cozaar) 50 mg BID@0600,1800 PO 06/27/17 18:00 06/29/17 06:15 (Apresoline) 10 mg Q8HR PRN PO 06/27/17 12:00 (Coumadin) 12.5 mg ONCE ONCE PO 06/29/17 15:00 06/29/17 15:01 UNV A/P Assessment and Plan 61YO female with PMHx CVA in April 2017, syringomyelia, DM, HTN, HLD presents with stroke alert and imaging showing 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 Neurology and cardiology consulted. Loop recorder installed by Cardiology/Dr Gilmore 06/26 and have signed off with f/u as outpt in 2 weeks. Neurology still awaiting therapeutic INR and current AC on coumadin and heparin until INR>2.0. Discharge Planning Discharge pending INR level >2.0 per neurology. Problem List: (1) CVA (cerebral vascular accident) ICD Codes: I63.9 - Cerebral infarction, unspecified Status: Acute Plan: MRA this morning showing basilar artery with non-occluding clot; pt stable and back to baseline; able to ambulate, speak normally. -Neurology consulted -Stop Plavix -Continue Coumadin--check INR daily. Okay to d/c when INR >2.0 and okay with neurology --INR 1.8 today; given coumadin 10mg PO yesterday afternoon; at DR Ibarra's suggestion, dosing at 12.5mg tomorrow; INR in AM -ASA 325mg -Consult Cardiology; SOCO with normal EF. No SHAHNAZ thrombus. No PFO -Neuro checks -OOB ad contreras -PT/OT/ST--Plan for DC w/HHPT/OT/nursing (2) Hypertension ICD Codes: I10 - Hypertension Status: Acute Plan: BP with better control; isolated 153/86 this morning. Ok per neurology to manage BP -Losartan 50 mg PO BID -Hold if SBP <110 OR DBP <65 -Hydralazine 10mg PO q8h if SBP>180 OR DBP>100 (3) Hypothyroid ICD Codes: E03.9 - Hypothyroidism, unspecified Status: Chronic Plan: Continue home dose Levothyroxine 75 mcg PO daily (4) Chronic myofascial pain ICD Codes: M79.1 - Myalgia; G89.29 - Other chronic pain Status: Chronic Plan: -Hold xanaflex -DC'd home tramadol 50mg q6h PO per Dr Ibarra Switch from tramadol to Roxicodone 2.5 mg by mouth every 8 hours. Her home tramadol was a 5mg morphine equivalent and the 2.5mg oxycodone is 3.75mg morphine equivalent -- so we are not escalating her dose. DWPT in detail and to watch for signs of sedation. She is agreeable and understands. (5) Anxiety ICD Codes: F41.9 - Anxiety disorder, unspecified Plan: Pt takes xanax at home -Had diarrhea when Lexapro 10mg PO daily was started--pt refuses -Dr Ibarra suggested starting zoloft but pt prefers not to take -Continue home dose xanax PRN -Discussed w/pt about trial of SSRI/antidepressant upon DC with goal of eventual discontinuation of xanax; states she is agreeable to this plan (6) FEN/GI/PPx Status: Acute Plan: Fluids: PO fluids Electrolytes: wnl, will replete, and monitor BMP daily Nutrition: Heart healthy diet w/Ensure vanilla supplement each meal GI: not indicated PPx: Per neurology, coumadin and heparin Tylenol 650mg PO q6h for fever; pain 1-3 Jayde-colace 1 tab PO BID Bowel regimen PRN Zofran 4mg IV q6h IV nausea Pain: as per above, holding home tramadol 50mg PO q6h pain 4-10 Sleep: Zolpidem 5mg PO qhs As per above plan to DC w/HHPT/OT and nursing for coumadin Discussed with Dr Gilmore how to set up loop recorder at home, showering and dressing changes Will see Adriana Gilmore, Tommy, and Clement 1 week after DC Problem Qualifiers (1) Hypertension: Qualified Codes: I10 - Essential (primary) hypertension Amando Bill MD R1 Jun 29, 2017 13:29
[2017-06-29] MEDS ORDERED: WARFARIN SOD 2.5 MG TAB PO ONE (15:00)
[2017-06-29 16:52] LABS: INTERNATIONAL NORMALIZED RATIO 1.9 RATIO; PROTHROMBIN TIME - PATIENT 19.6 SEC (9.8-11.6)
[2017-06-29] MEDS: ATORVASTATIN 40 MG TAB PO SCH (21:14)
[2017-06-29] MEDS: ZOLPIDEM TARTRATE 5 MG TAB PO PRN (21:14)
[2017-06-30 05:15] VITALS: BP 130/80; PULSE 77; RESP 17; TEMP 97.3; O2SAT 95
[2017-06-30] MEDS: LOSARTAN 25 MG TAB PO SCH (06:38)
[2017-06-30] MEDS: ALPRAZolam 0.25 MG TAB PO PRN (06:38)
[2017-06-30] MEDS: LEVOTHYROXINE SODIUM 75 MCG TAB PO SCH (06:38)
[2017-06-30] MEDS: DOCUSATE SODIUM 50 MG/SENNA 8.6 MG TAB PO SCH (07:07)
[2017-06-30] MEDS: SODIUM CHLORIDE 0.9% FLUSH 10 ML FLUSH IV FLUSH SCH (07:07)
[2017-06-30 07:22] LABS: INTERNATIONAL NORMALIZED RATIO 2.2 RATIO; PROTHROMBIN TIME - PATIENT 22.4 SEC (9.8-11.6)
[2017-06-30 08:29] VITALS: BP 138/79; PULSE 79; RESP 20; TEMP 98.1; O2SAT 94
[2017-06-30 08:59] VITALS: PULSE 103
[2017-06-30] MEDS ORDERED: WARF-21 PO (11:00)
--- NOTE | 2017-06-30 11:01 | HHI.DCPOC ---
Discharge Care Plan Diagnosis: (1) Ischemic stroke (2) Hypertension (3) Neurologic deficit due to acute ischemic cerebrovascular accident (CVA) Goals to Promote Your Health * To prevent worsening of your condition and complications * To maintain your health at the optimal level Directions to Meet Your Goals Take your medications as prescribed Follow your dietary instruction Follow activity as directed Keep your appointments as scheduled Take your immunizations and boosters as scheduled If your symptoms worsen call your PCP, if no PCP go to Urgent Care Center or Emergency Room Smoking is Dangerous to Your Health. Avoid second hand smoke Call the 24-hour hour crisis hotline for domestic abuse at Arun Rincon MD, R3 Jun 30, 2017 11:01
--- NOTE | 2017-06-30 11:18 | HHI.FPPN ---
Subjective Remarks Ms Stoddard had no acute events overnight. She is feeling well this morning and ready to go home. Her INR is 2.2 today so she can discharge. HHPT/OT and nursing is arranged including INR checks for next 3 days with [facility]. Denies CP, SOB, N/V/D, DVT pain. (Amando Bill MD R1) Objective Vitals Vital Signs Date Time Temp Pulse Resp B/P (MAP) Pulse Ox O2 Delivery O2 Flow Rate FiO2 06/30/17 08:59 103 06/30/17 08:29 98.1 79 20 138/79 (98) 94 06/30/17 05:15 97.3 77 17 130/80 (97) 95 06/29/17 22:15 98.0 78 17 121/73 (89) 96 06/29/17 18:23 71 06/29/17 16:00 98.5 82 17 141/67 (91) 96 06/29/17 12:44 89 06/29/17 12:00 97.7 78 18 116/83 (94) 96 I/O 06/29/17 06/29/17 06/29/17 06/30/17 06/30/17 06/30/17 07:00 15:00 23:00 07:00 15:00 23:00 Intake Total 1000 ml 1000 ml 1000 ml 16 ml Balance 1000 ml 1000 ml 1000 ml 16 ml Intake Oral 1000 ml 1000 ml 1000 ml IV Total 16 ml # Voids 10 7 9 # Bowel Movements 0 0 0 (Amando Bill MD R1) Result Diagram: 06/26/17 0545 06/27/17 0728 Objective Remarks GENERAL: This is a well-nourished, well-developed middle-aged female sitting in bedside chair in no acute distress, less anxious. SKIN: No rashes, ecchymoses or lesions. Cool and dry. HEAD: Atraumatic. Normocephalic. EYES: PERRLA/EOMI. No scleral icterus. No injection or drainage. ENT: Nose without drainage. Throat without erythema. Uvula midline. Airway patent. MMM. NECK: Trachea midline. No JVD or lymphadenopathy. Supple, nontender, no meningeal signs. CARDIOVASCULAR: Regular rate and rhythm without murmurs, gallops, or rubs. RESPIRATORY: Clear to auscultation. Breath sounds equal bilaterally. No wheezes , rales, or rhonchi. GASTROINTESTINAL: Abdomen soft, non-tender, nondistended. MUSCULOSKELETAL: Extremities without clubbing or cyanosis; No edema. No calf tenderness. LLE 4/5, RLE 4/5 strength; RUE 4/5 and LUE 4/5 strength. NEUROLOGICAL: Awake, alert and oriented x3. Cranial nerves II through XII intact. Normal speech. Mild contracture of bilateral hand PIPs 2-5 (chronic) Medications and IVs Current Medications Medications (Trade) Dose Ordered Sig/Rob Route Start Time Stop Time Status Last Admin Heparin Sodium/ Dextrose 250 ml @ 12 mls/hr TITRATE PRN IV 06/21/17 12:45 06/29/17 07:15 (NS Flush) 2 ml UNSCH PRN IV FLUSH 06/21/17 17:00 (NS Flush) 2 ml BID IV FLUSH 06/21/17 21:00 06/29/17 21:15 (Tylenol) 650 mg Q4H PRN PO 06/21/17 17:00 (Zofran Inj) 4 mg Q6H PRN IVP 06/21/17 17:00 06/23/17 14:05 (Ambien) 5 mg HS PRN PO 06/21/17 17:00 06/29/17 21:14 (Narcan Inj) 0.4 mg UNSCH PRN IV PUSH 06/21/17 17:00 (Jayde-Colace) 1 tab BID PO 06/21/17 21:00 06/27/17 08:00 (Milk Of Magnesia Liq) 30 ml Q12H PRN PO 06/21/17 17:00 (Senokot) 17.2 mg Q12H PRN PO 06/21/17 17:00 (Dulcolax Supp) 10 mg DAILY PRN RECTAL 06/21/17 17:00 (Lactulose Liq) 30 ml DAILY PRN PO 06/21/17 17:00 (Lipitor) 40 mg HS PO 06/21/17 21:00 06/29/17 21:14 (Synthroid) 75 mcg DAILY@0600 PO 06/22/17 06:00 06/30/17 06:38 Phenylephrine HCl 80 mg/Sodium Chloride 500 ml @ 15 mls/hr TITRATE PRN IV 06/22/17 13:00 (Brethine Inj) 1 mg UNSCH PRN SQ 06/22/17 13:00 (Xanax) 0.25 mg Q8H PRN PO 06/24/17 11:15 06/30/17 06:38 (Pill Splitter) 1 ea UNSCH PRN OTHER 06/25/17 08:00 (Roxicodone) 2.5 mg Q8H PRN PO 06/25/17 15:30 Future hold 06/30/17 06:38 (Imodium) 2 mg Q6H PRN PO 06/26/17 12:45 (Coumadin) 5 mg DAILY@1600 PO 06/27/17 16:00 Future Hold (Cozaar) 50 mg BID@0600,1800 PO 06/27/17 18:00 06/30/17 06:38 (Apresoline) 10 mg Q8HR PRN PO 06/27/17 12:00 (Amando Bill MD R1) Urinary Catheter: No (Amando Bill MD R1) Vascular Central Line Catheter: No (Amando Bill MD R1) A/P Assessment and Plan 61YO female with PMHx CVA in April 2017, syringomyelia, DM, HTN, HLD presents with stroke alert and imaging showing 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 Neurology and cardiology consulted. Loop recorder installed by Cardiology/Dr Gilmore 06/26 and have signed off with f/u as outpt in 1 week. Neurology has on coumadin and heparin until INR>2.0. Today INR 2.2 so may discharge home and will f/u with Dr Vaughan and Dr Sanders in 1 week. Will get HHPT/OT and nursing with INR checks arranged by CM for next three days as we ensure her INR on coumadin remains therapeutic between 2.0 and 3.0. Discharge Planning Discharge pending INR level >2.0 per neurology. (Amando Bill MD R1) Attending Attestation Patient seen and examined. Case reviewed and discussed with the resident team. Agree with plan of care as discussed with me and documented in the resident note. she has been very eager to go home. she has been taught about consistent eating with greens and vitamin K rich foods and knows she needs her INRs checked daily until she is stable (Shania Woody MD) Problem List: (1) CVA (cerebral vascular accident) ICD Codes: I63.9 - Cerebral infarction, unspecified Status: Acute Plan: MRA showing basilar artery with non-occluding clot; pt stable and back to baseline; able to ambulate, speak normally. -Neurology consulted -Stop Plavix -Continue Coumadin--check INR daily. Okay to d/c when INR >2.0 and okay with neurology --INR 2.2 today; will discharge on coumadin 7.5mg initially; INR in AM by nursing -ASA 325mg -Consult Cardiology; SOCO with normal EF. No SHAHNAZ thrombus. No PFO -Neuro checks -OOB ad contreras -PT/OT/ST--Plan for DC w/HHPT/OT/nursing (2) Hypertension ICD Codes: I10 - Hypertension Status: Acute Plan: BP controlled and wnl since yesterday afternoon -Losartan 50 mg PO BID -Hold if SBP <110 OR DBP <65 -Hydralazine 10mg PO q8h if SBP>180 OR DBP>100 (3) Hypothyroid ICD Codes: E03.9 - Hypothyroidism, unspecified Status: Chronic Plan: Continue home dose Levothyroxine 75 mcg PO daily (4) Chronic myofascial pain ICD Codes: M79.1 - Myalgia; G89.29 - Other chronic pain Status: Chronic Plan: -Hold xanaflex -DC'd home tramadol 50mg q6h PO -DC home on Roxicodone 2.5 mg q8h PO PRN (5) Anxiety ICD Codes: F41.9 - Anxiety disorder, unspecified Plan: Pt takes xanax at home -Had diarrhea when Lexapro 10mg PO daily was started--pt refuses -Pt elected not to start SSRI in hospital but agrees to trial SSRI/SNRI upon discharge with her PCP -Continue home dose xanax PRN (6) FEN/GI/PPx Status: Acute Plan: Fluids: PO fluids Electrolytes: wnl Nutrition: Heart healthy diet w/Ensure vanilla supplement each meal GI: not indicated PPx: Per neurology, coumadin and heparin; discharge on coumadin 7.5mg PO daily and titrate Tylenol 650mg PO q6h for fever; pain 1-3 Jayde-colace 1 tab PO BID Bowel regimen PRN Zofran 4mg IV q6h IV nausea Pain: as per above, holding home tramadol 50mg PO q6h pain 4-10 Sleep: Zolpidem 5mg PO qhs As per above plan to DC w/HHPT/OT and nursing for coumadin Discussed with Dr Gilmore how to set up loop recorder at home, showering and dressing changes Will see Tommy Vaughn, and Clement 1 week after DC (Amando Bill MD R1) Problem Qualifiers (1) Hypertension: Qualified Codes: I10 - Essential (primary) hypertension Amando Bill MD R1 Jun 30, 2017 11:18 Shania Woody MD Jul 01, 2017 13:49
--- NOTE | 2017-07-02 21:06 | HHI.DS ---
Discharge Summary Admission Date Jun 21, 2017 at 14:18 Discharge Date: Jun 30, 2017 Admitting Diagnosis acute ischemic CVA, L basilar artery occlusion (1) Neurologic deficit due to acute ischemic cerebrovascular accident (CVA) Diagnosis: Principal ICD Codes: I63.9 - Cerebral infarction, unspecified; R29.818 - Other symptoms and signs involving the nervous system (2) Anticoagulated on Coumadin Diagnosis: Secondary ICD Codes: Z51.81 - Encounter for therapeutic drug level monitoring; Z79.01 - diamond sizer (current) use of anticoagulants (3) Status post placement of implantable loop recorder Diagnosis: Secondary ICD Codes: Z95.818 - Presence of other cardiac implants and grafts (4) Anxiety Diagnosis: Secondary ICD Codes: F41.9 - Anxiety disorder, unspecified (5) Hypothyroid Diagnosis: Secondary ICD Codes: E03.9 - Hypothyroidism, unspecified Status: Chronic (6) Hypertension Diagnosis: Secondary ICD Codes: I10 - Hypertension Status: Acute Procedures Loop recorder implanted by Dr Gilmore Brief History Mrs. Stoddard is a 61-year-old Female w/PHMx of syringomyelia with multiple surgeries and chronic left sided weakness from syrinx; diabetes, hypertension, hyperlipidemia and CVA in April 2017 presents as a stroke alert for right sided arm and leg weakness beginning this morning. Pt was feeling fine and walking with a cane when she experienced acute onset right arm and leg weakness. Patient was admitted for stroke workup and neurology was consulted by ED. Dr Ibarra saw the pt and determined tPA should not be administered and started heparin and coumadin. Her plavix was held. He has consulted cardiology for an occult afib workup. In April pt was admitted for stroke alert with CT brain and CTA negative; however, MRI brain showed large stroke in the Left occipital lobe medially and small mays within the cerebellum with no masses. ACS workup including Echo was negative. Pt was cleared for discharge to [facility]. On exam pt has just returned from MRI and is wondering if we have results yet from her CT and MRI and is wondering why she might have afib now. She states she is not having trouble with speech, facial movement or sensation, and that right arm and leg weakness are much improved. There has been no incontinence, LOC, visual changes, headache, dysarthria, CP, SOB or other concerning neurological s/s. Significant Findings Laboratory Tests Test 06/29/17 23:33 06/30/17 06:00 Activated Partial Thromboplast Time 53.2 SEC (24.3-30.1) 52.1 SEC (24.3-30.1) Prothrombin Time 22.4 SEC (9.8-11.6) Imaging Last Impressions Head Magnetic Resonance Angiography 06/22/17 0000 Signed Impressions: Service Date/Time: Thursday, June 22, 2017 09:49 - CONCLUSION: MRA demonstrates an elongated small area of absent flow in the posterolateral aspect of the basilar artery, similar to the defect seen on CTA. This does not restrict flow and there is a normal pattern of flow in the posterior cerebral and superior cerebellar vessels. A differential considerations include clot and eccentric atheroma. Marco A Luong MD Brain MRI 06/21/17 1254 Signed Impressions: Service Date/Time: May 15:05 - CONCLUSION: No acute intracranial findings Andrew Lewis MD Neck CTA 06/21/17 1209 Signed Impressions: Service Date/Time: May 12:20 - CONCLUSION: Negative CTA of the carotids without local luminal narrowing or dissection. Marco A Luong MD Head CTA 06/21/17 1209 Signed Impressions: Service Date/Time: May 12:20 - CONCLUSION: Nonocclusive finding in the basilar artery with differential considerations as above. Andrew Lewis MD Head CT 06/21/17 0000 Signed Impressions: Service Date/Time: May 12:06 - CONCLUSION: 1. Encephalomalacic infarct involving the medial left occipital cortex. 2. Previous suboccipital craniotomy for Chiari malformation. 3. The left occipital cortex is new compared to previous CT dated 05/16/17. Giovanni Stapleton MD PE at Discharge GENERAL: This is a well-nourished, well-developed middle-aged female sitting in bedside chair in no acute distress, less anxious. SKIN: No rashes, ecchymoses or lesions. Cool and dry. HEAD: Atraumatic. Normocephalic. EYES: PERRLA/EOMI. No scleral icterus. No injection or drainage. ENT: Nose without drainage. Throat without erythema. Uvula midline. Airway patent. MMM. NECK: Trachea midline. No JVD or lymphadenopathy. Supple, nontender, no meningeal signs. CARDIOVASCULAR: Regular rate and rhythm without murmurs, gallops, or rubs. RESPIRATORY: Clear to auscultation. Breath sounds equal bilaterally. No wheezes , rales, or rhonchi. GASTROINTESTINAL: Abdomen soft, non-tender, nondistended. MUSCULOSKELETAL: Extremities without clubbing or cyanosis; No edema. No calf tenderness. LLE 4/5, RLE 4/5 strength; RUE 4/5 and LUE 4/5 strength. NEUROLOGICAL: Awake, alert and oriented x3. Cranial nerves II through XII intact. Normal speech. Mild contracture of bilateral hand PIPs 2-5 (chronic) Hospital Course Ms Stoddard is a 61YO female who was admitted for a stroke alert on 06/21/[address] and MRA showing a clot in the left basilar artery that was non-occlusive but caused acute ischemia to the left occipital artery and resultant right-sided weakness in the pt's UE and LE without major deficits in speech or cranial nerves. Within hours the pt was beginning to regain function in her right arm and leg. She has left-sided weakness at baseline that is chronic. Dr Ibarra, neurology responded to the stroke alert and quickly decided against tPA therapy and instead opted for ASA 325mg. He discontinued her plavix as pt had been prescribed this plus aspirin following her CVA in April 2017. Instead he opted for heparin and warfarin for anticoagulation and decided to further investigate the possibility of paroxysmal atrial fibrillation as the etiology for the event. Pt was placed in the ICU with management by rn quality team for two days. On hospital day 3, pt was stable and transferred to the floor for medical management. Cardiology was consulted resulting in a normal ECHO study showing EF of 60-65% with no gross abnormalities noted. A loop recorder was installed by Dr Gilmore on 06/26/17 which will allow remote heart monitoring for any paroxysmal atrial fibrillation event as an outpatient for the next 30 or so days. The pt's hospital stay was prolonged due to waiting for therapeutic INR level between 2.0 and 3.0. During this interval the pt was cleared by ST requiring no further intervention, but OT and PT will require home health PT/OT to ensure the pt improves upon discharge. In addition, home health nursing will ensure a therapeutic INR upon discharge for several days until she can follow up with her PCP, neurologist, and Tower Technician. Pt felt she was back at her baseline 4-5 days prior to discharge, afebrile, and stable. Pt Condition on Discharge: Stable Discharge Disposition: Disch w/ Home Health Serv Discharge Instructions DIET: Follow Instructions for: As Tolerated, No Restrictions Additional Diet Instructions: Warfarin diet restriction Activities you can perform: Regular-No Restrictions Follow up Referrals: Cardiology - 1 Week with Arun Gilmore MD Neurology - 1 Week @ [facility] with Monae Vaughan MD PCP Follow-up - 1 Week with Jasmin Leiva MD New Medications: Warfarin (Warfarin) 7.5 Mg Tab 7.5 MG PO DAILY for Blood Clot Prevention, #30 TAB 0 Refills Escitalopram (Escitalopram) 10 Mg Tab 10 MG PO DAILY, #30 TAB 0 Refills Changed Medications: Losartan (Cozaar) 50 Mg Tab 50 MG PO BID@0600,1800 for Blood Pressure Management for 30 Days, #90 TAB 3 Refills (Changed from: 25 MG) Continued Medications: Acetaminophen (Eq Acetaminophen) 325 Mg Tab 650 MG PO Q4H PRN for Fever/ Pain 1-3 for 30 Days, #360 TAB Alprazolam (Xanax) 0.25 Mg Tab 0.25 MG PO Q12HR, #120 TAB 0 Refills Aspirin (Px Aspirin) 325 Mg Tab 325 MG PO DAILY, #30 TAB Atorvastatin (Lipitor) 40 Mg Tab 40 MG PO HS for Cholesterol Management, #90 TAB 3 Refills Calcium Carbonate-Cholecalciferol (Calcium 500 +D) 500-400 Mg-Unit Tab 1 TAB PO BID for Calcium Supplement, TAB 0 Refills Calcium/Vitamin D (Oyster Shell 250 mg + Vit D Tb) 250 Mg Calcium (625 Mg)-125 Unit Tablet 250 MG PO Q12HR for Nutritional Supplement for 30 Days Ibandronate (Boniva) 150 Mg Tab 150 MG PO Q28D for 90 Days, #3 TAB 0 Refills Levothyroxine (Synthroid) 75 Mcg Tab 75 MCG PO DAILY@0600 for 30 Days, #90 TAB 3 Refills Tizanidine (Zanaflex) 4 Mg Tab 4 MG PO BID for 30 Days, #120 TAB 3 Refills Vitamin E (Sm Vitamin E) 400 Unit Cap 400 UNITS PO DAILY for Nutritional Supplement for 30 Days, CAP Vitamin E Acetate (Vitamin E) 400 Unit Capsule 400 UNITS PO DAILY for Nutritional Supplement Discontinued Medications: Clopidogrel (Plavix) 75 Mg Tab 75 MG PO DAILY for Blood Clot Prevention, #90 TAB 3 Refills Tramadol (Ultram) 50 Mg Tab 50 MG PO Q6H PRN for pain 4-10, #120 TAB 1 Refill Amando Bill MD R1 Jul 02, 2017 21:06
== END 2017-06-30 12:50 | disposition home health service (06) | DRG 41 ==
LOC: NEPC 11:52 → NEDA 14:18 → N03A 17:13 → N05A 06-23 13:25
PROVIDERS: ADMIT Family Medicine; ATTEND Family Medicine
PROC: B246ZZ4 Ultrasonography of Right and Left Heart, Transesophageal (ICD-10-PCS; 2017-06-22)
PROC: 0JH602Z Insertion of Monitoring Device into Chest Subcutaneous Tissue and Fascia, Open Approach (ICD-10-PCS; principal; 2017-06-26 07:30)
DX: I63.02 Cerebral infarction due to thrombosis of basilar artery (principal); G81.91 Hemiplegia, unspecified affecting right dominant side; G95.0 Syringomyelia and syringobulbia; K52.1 Toxic gastroenteritis and colitis; G93.89 Other specified disorders of brain; I10 Essential (primary) hypertension; Z79.02 Long term (current) use of antithrombotics/antiplatelets; Z79.82 Long term (current) use of aspirin; Z79.01 Long term (current) use of anticoagulants; M19.90 Unspecified osteoarthritis, unspecified site; E78.5 Hyperlipidemia, unspecified; E03.9 Hypothyroidism, unspecified; R47.81 Slurred speech; M85.80 Other specified disorders of bone density and structure, unspecified site; R73.03 Prediabetes; J30.2 Other seasonal allergic rhinitis; G89.29 Other chronic pain; M79.1 Myalgia; F41.9 Anxiety disorder, unspecified; I48.91 Unspecified atrial fibrillation; M24.542 Contracture, left hand; M24.541 Contracture, right hand; R11.0 Nausea; T43.225A Adverse effect of selective serotonin reuptake inhibitors, initial encounter; Y92.230 Patient room in hospital as the place of occurrence of the external cause; Z87.820 Personal history of traumatic brain injury; Z80.0 Family history of malignant neoplasm of digestive organs; Z82.49 Family history of ischemic heart disease and other diseases of the circulatory system
CPT/HCPCS: 33282; 70450; 70496; 70498; 70544; 70553; 80048; 80053; 80307; 81001; 82550; 82607; 83921; 84425; 84484; 85025; 85027; 85384; 85610; 85652; 85730; 86038; 86850; 86900; 86901; 93005; 93312; 93320; 93325; 96361; 96365; 99152; A9579; C1764; J0690; J1644; J2250; J2405; J3010; J7030; P9612; Q9967